=== PATIENT | male | born 1940 | race Caucasian/White ===

== ENCOUNTER → 2020-09-29 10:21 | Outpatient (BNVA) | payer BC, SELFPAY | PROVIDERS: PCP Nurse Practitioner Family; Visit Provider Urology | DX: Z13.89 Encounter for screening for other disorder (principal) ==

== ENCOUNTER → 2021-04-14 09:05 | Outpatient (BNV) | payer MEDICARE, SELFPAY | PROVIDERS: PCP Nurse Practitioner Family; Visit Provider Internal Medicine Medical Oncology | DX: D47.2 Monoclonal gammopathy (principal) | CPT/HCPCS: 99213; 99214 ==

== ENCOUNTER → 2021-05-19 11:05 | Outpatient (BNVA) | payer MEDICARE, SELFPAY | PROVIDERS: PCP Nurse Practitioner Family; Visit Provider Urology | DX: N32.1 Vesicointestinal fistula (principal); N32.0 Bladder-neck obstruction; R33.9 Retention of urine, unspecified; N40.1 Benign prostatic hyperplasia with lower urinary tract symptoms; N13.8 Other obstructive and reflux uropathy; R35.1 Nocturia; E11.65 Type 2 diabetes mellitus with hyperglycemia | CPT/HCPCS: 51798; 99212 ==

== ENCOUNTER 2021-11-15 10:26 | Outpatient (REF) | payer MEDICARE, SELFPAY | END 2021-11-15 10:27 | disposition home or self-care (01) | LOC: HO.LNP 10:26 | PROVIDERS: PCP Nurse Practitioner Family; Visit Provider Urology | DX: N31.2 Flaccid neuropathic bladder, not elsewhere classified (principal); N32.0 Bladder-neck obstruction; N39.0 Urinary tract infection, site not specified | CPT/HCPCS: 51798; 87086; 99212 ==

== ENCOUNTER → 2022-05-18 09:49 | Outpatient (BNVA) | payer MEDICARE, SELFPAY | PROVIDERS: PCP Nurse Practitioner Family; Visit Provider Urology | DX: N39.0 Urinary tract infection, site not specified (principal); N32.0 Bladder-neck obstruction; N31.2 Flaccid neuropathic bladder, not elsewhere classified; Z79.899 Other long term (current) drug therapy | CPT/HCPCS: 51798; 99212 ==

== ENCOUNTER 2022-07-13 07:24 | Outpatient (REF) | payer MEDICARE, SELFPAY ==
[2022-07-13 11:34] LABS: Appearance Urine Clear; Color Urine Yellow; Glucose Urine UA Negative (Negative); Leukocyte Esterase Urine Moderate (2+) (Negative); Nitrite Urine Negative (Negative); Specific Gravity - Urine 1.015 (1.005-1.025); UMIC TRIGGER UACC YES; Urine Blood Negative (Negative); Urine Ketones Negative (Negative); Urine Protein Negative (Neg-Trace)
[2022-07-13 11:38] LABS: Bacteria Urine None Seen (None Seen); Hyaline Casts Urine 0-2 /LPF (0-2); RBC Urine 0-2 /HPF (0-2); Squamous Epithelial Cell Urine 0-2 /HPF (0-2); UACC Culture Trigger YES; WBC Urine 21-50 /HPF (0-5)
[2022-07-13 11:41] LABS: Basophils Percent Auto 0.2 % (0-2); Eosinophils Absolute Auto 0.2 X10*3/uL (0.0-0.4); Eosinophils Percent Auto 2.1 % (0-4); Hematocrit 41.5 % (42.0-52.0); Hemoglobin 13.6 g/dl (14.0-18.0); Imm Gran Abs Auto 0.02 X10*3/uL (0.00-0.03); Imm Gran Pct Auto 0.2 % (0.0-0.4); Lymphocytes Percent Auto 71.1 % (20-40); MANUAL DIFF FLAG SCAN; Mean Corpuscular HGB Conc 32.8 g/dl (31.0-36.0); Mean Corpuscular Hemoglobin 33.3 pg (27.0-33.0); Mean Corpuscular Volume 101.5 fL (80.0-98.0); Mean Platelet Volume 12.2 fL (9.4-12.4); Monocytes Absolute Auto 0.5 X10*3/uL (0.1-1.2); Monocytes Percent Auto 5.3 % (2-11); Neutrophils Absolute Auto 1.8 x10*3/uL (2.0-8.3); Neutrophils Percent Auto 21.1 % (45-73); Red Blood Count 4.09 X10*6/uL (4.60-5.80); Red Cell Distribution Width 13.2 % (11.0-16.0); SCAN SMEAR FLAG 1; White Blood Count 8.5 X10*3/uL (4.8-10.8)
[2022-07-13 11:42] LABS: Platelet Count 56 X10*3/uL (160-400)
[2022-07-13 11:45] LABS: Estimated Average Glucose 117 mg/dL; Hemoglobin A1c % 5.7 %
[2022-07-13 12:10] LABS: Alanine Aminotransferase 21 U/L (0-40); Albumin Level 4.3 g/dL (3.5-5.0); Alkaline Phosphatase 88 U/L (39-117); Anion Gap 15 (12-20); Aspartate Amino Transferase 19 U/L (5-37); Bilirubin Total 0.6 mg/dL (0.0-1.0); Blood Urea Nitrogen 22 mg/dL (9-16); Calcium 8.8 mg/dL (8.4-10.2); Carbon Dioxide 27 mmol/L (22-29); Chloride 101 mmol/L (96-108); Cholesterol 136 mg/dL; Estimated Glomerular Filt Rate > 60; Glucose Fasting 100 mg/dL (60-99); HDL Cholesterol 48 mg/dL; LDL Cholesterol Calculated 70 mg/dl; Potassium 4.2 mmol/L (3.3-5.1); Sodium 139 mmol/L (135-145); Total Protein 6.5 g/dL (6.5-8.0); Triglycerides 92 mg/dL
[2022-07-13 12:16] LABS: Prostate Specific Antigen Scr 0.64 ng/mL (<0.05-4.0)
[2022-07-13 12:19] LABS: Microalbum/Creatinine Ratio Ur 28.3 ug/mg cr
[2022-07-13 12:26] LABS: SLIDE REVIEW VERIFIED
== END 2022-07-13 07:25 | disposition home or self-care (01) ==
LOC: HO.HMGCLDS 07:24
PROVIDERS: PCP Nurse Practitioner Family; Visit Provider Nurse Practitioner Family
DX: Z12.5 Encounter for screening for malignant neoplasm of prostate (principal); E11.9 Type 2 diabetes mellitus without complications
CPT/HCPCS: 36415; 80053; 80061; 81001; 82043; 83036; 84153; 84443; 85025; 87086

== ENCOUNTER 2022-07-18 08:32 | Outpatient (REF) | payer MEDICARE, SELFPAY ==
[2022-07-18 11:31] LABS: Appearance Urine Clear; Color Urine Yellow; Glucose Urine UA 100 mg/dL (Negative); Leukocyte Esterase Urine Moderate (2+) (Negative); Nitrite Urine Negative (Negative); Specific Gravity - Urine 1.015 (1.005-1.025); UMIC TRIGGER UACC YES; Urine Blood Negative (Negative); Urine Ketones Negative (Negative); Urine Protein Negative (Neg-Trace)
[2022-07-18 11:40] LABS: Bacteria Urine None Seen (None Seen); Hyaline Casts Urine 0-2 /LPF (0-2); RBC Urine 0-2 /HPF (0-2); Squamous Epithelial Cell Urine 0-2 /HPF (0-2); UACC Culture Trigger YES
== END 2022-07-18 08:33 | disposition home or self-care (01) ==
LOC: HO.HMGCLDS 08:32
PROVIDERS: Absent Provider Internal Medicine; PCP Nurse Practitioner Family; Visit Provider Nurse Practitioner Family
DX: R82.81 Pyuria (principal)
CPT/HCPCS: 81001; 87086

== ENCOUNTER → 2022-11-13 11:46 | Outpatient (BNVA) | payer MEDICARE, SELFPAY | PROVIDERS: PCP Nurse Practitioner Family; Visit Provider Urology | DX: N39.0 Urinary tract infection, site not specified (principal); N31.2 Flaccid neuropathic bladder, not elsewhere classified; B49 Unspecified mycosis | CPT/HCPCS: 51798; 99212 ==

== ENCOUNTER 2023-02-11 06:27 | Outpatient (REF) | payer MEDICARE, SELFPAY ==
[2023-02-11 11:43] LABS: Appearance Urine Clear; Color Urine Yellow; Glucose Urine UA Negative (Negative); Leukocyte Esterase Urine Small (1+) (Negative); Nitrite Urine Positive (Negative); PH 6.5 (5.0-9.0); UMIC TRIGGER UACC YES; Urine Blood Negative (Negative); Urine Ketones Negative (Negative); Urine Protein Negative (Neg-Trace)
[2023-02-11 11:46] LABS: Basophils Percent Auto 0.2 % (0-2); Eosinophils Absolute Auto 0.1 X10*3/uL (0.0-0.4); Eosinophils Percent Auto 1.5 % (0-4); Hematocrit 41.1 % (42.0-52.0); Hemoglobin 13.4 g/dl (14.0-18.0); Imm Gran Abs Auto 0.01 X10*3/uL (0.00-0.03); Imm Gran Pct Auto 0.1 % (0.0-0.4); Lymphocytes Percent Auto 72.1 % (20-40); MANUAL DIFF FLAG SCAN; Mean Corpuscular HGB Conc 32.6 g/dl (31.0-36.0); Mean Corpuscular Volume 101.2 fL (80.0-98.0); Mean Platelet Volume 12.3 fL (9.4-12.4); Monocytes Absolute Auto 0.4 X10*3/uL (0.1-1.2); Monocytes Percent Auto 4.6 % (2-11); Neutrophils Absolute Auto 1.9 x10*3/uL (2.0-8.3); Neutrophils Percent Auto 21.5 % (45-73); Red Blood Count 4.06 X10*6/uL (4.60-5.80); Red Cell Distribution Width 13.2 % (11.0-16.0); SCAN SMEAR FLAG 1; White Blood Count 8.9 X10*3/uL (4.8-10.8)
[2023-02-11 11:50] LABS: Bacteria Urine Trace (None Seen); Hyaline Casts Urine 0-2 /LPF (0-2); RBC Urine 0-2 /HPF (0-2); Squamous Epithelial Cell Urine 0-2 /HPF (0-2); UACC Culture Trigger YES
[2023-02-11 11:51] LABS: Lymphocytes Absolute Auto 6.5 X10*3/uL (1.2-4.9)
[2023-02-11 11:57] LABS: Estimated Average Glucose 120 mg/dL; Hemoglobin A1c % 5.8 %
[2023-02-11 12:05] LABS: Alanine Aminotransferase 19 U/L (0-40); Albumin Level 4.2 g/dL (3.5-5.0); Alkaline Phosphatase 85 U/L (39-117); Anion Gap 10 (12-20); Aspartate Amino Transferase 15 U/L (5-37); Bilirubin Total 0.8 mg/dL (0.0-1.0); Blood Urea Nitrogen 23 mg/dL (9-16); Calcium 9.3 mg/dL (8.4-10.2); Carbon Dioxide 32 mmol/L (22-29); Chloride 103 mmol/L (96-108); Cholesterol 138 mg/dL; Estimated Glomerular Filt Rate > 60; Glucose Fasting 123 mg/dL (60-99); HDL Cholesterol 47 mg/dL; LDL Cholesterol Calculated 70 mg/dl; Potassium 4.3 mmol/L (3.3-5.1); Sodium 141 mmol/L (135-145); Total Protein 6.2 g/dL (6.5-8.0); Triglycerides 105 mg/dL
[2023-02-11 12:11] LABS: Platelet Count 50 X10*3/uL (160-400)
[2023-02-11 12:13] LABS: SLIDE REVIEW VERIFIED
[2023-02-11 12:24] LABS: TSH reflex Free T4 1.78 uIU/mL (0.32-4.0)
== END 2023-02-11 06:28 | disposition home or self-care (01) ==
LOC: HO.HMGCLDS 06:27
PROVIDERS: PCP Nurse Practitioner Family; Visit Provider Nurse Practitioner Family
DX: E11.9 Type 2 diabetes mellitus without complications (principal); R82.90 Unspecified abnormal findings in urine
CPT/HCPCS: 36415; 80053; 80061; 81001; 83036; 84443; 85025; 87086; 87186

== ENCOUNTER 2023-05-14 09:58 | Outpatient (AMB) | payer MEDICARE, SELFPAY ==
--- NOTE | 2023-05-14 10:08 | MHC.OFFVIS ---
Intake Intake Visit Reasons: 6M PVR Intake Note: Patient is present for Follow Up PVR Urology Med: Bethanechol, Tamsulosin Antibiotic Allergy:None Blood Thinner: None Pharmacy: [facility] PVR: 47 Allergies No Known Allergies [No Known Allergies*] Allergy (Verified 05/14/23 10:12) HPI HPI Comments History of Present Illness Details Reji is a very pleasant male. He is a patient of Dr. Spain. He is seen for the following urologic conditions. - urinary retention - lower urinary tract symptoms Accompanied by his brother PVR 45 UA negative Prior prescription for ketoconazole Has urinary urgency with classic OAB Will try coming off bethanechol Would use Myrbetriq if not successful Lower urinary tract symptoms Prior bladder neck contracture with incision Current medications tamsulosin and bethanechol PVR - 10/13 0, 05/13 0cc, 11/14 0cc, 11/14 0cc 2 month follow-up tele visit [facility] Medical History Bladder neck contracture BPH (benign prostatic hyperplasia) Diabetes mellitus Hyperglycemia Hypotonic bladder Nocturia Osteoporosis Right inguinal hernia Urgency of urination Surgical History H/O urethrotomy Family History Father CVD (cardiovascular disease) Mother No problems noted. Other HTN (hypertension) Social History Household Members: Family Housing: House Are you a primary children's zoo caretaker to a significant other at home: No Do you presently have visiting nurse or other home services: No Patient Tobacco Use Status: Never used Tobacco e-Cigarette/Vaping Use: Never Used Second Hand Smoke Exposure: No service: No Current occupational status: retired Cognitive needs: No Hearing needs: No Vision needs: No Review of Systems Const Denies chills and Denies fever(s) Card Reports no additional complaints and Denies syncope Resp Denies cough GI Denies abdominal pain and Denies heartburn Reports as per HPI and Denies change in libido Neuro Denies syncope Psych Denies change in libido Endo Denies change in libido Physical Exam Const General: cooperative, healthy appearing, comfortable and no acute distress Orientation/consciousness: patient oriented x3 HEENT Face and sinus: Yes normal facial exam Mouth: moist mucous membranes Neck Neck: Yes normal visual inspection, Yes full ROM and Yes trachea midline Chest Chest palpation & inspection: normal inspection of the chest Resp Effort & Inspection: normal respiratory effort, able to speak in complete sentences and no respiratory distress GI Inspection: Yes normal to inspection Back/Spine/Pelvis Cervical Spine: normal cervical lordosis Thoracic/Lumbar Spine: thoracic and lumbar spine normal to inspection Skin General skin exam: no rashes or lesions noted Neuro General: patient oriented x3, gait normal, tone normal and moves all extremities Extrem General: Yes normal to inspection and Yes capillary refill normal Office Procedures Post Void Residual Post Residual Void Post Void Residual (PVR): 47 23537-Mfoi Void Residual by ultrasound Assessment & Plan Assessment & Plan (1) Hypotonic bladder: Code(s): 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 No major barriers to patient understanding were identified. An opportunity to ask questions regarding the treatment plan was provided. All questions were answered. The patient expressed understanding and agreement with the above treatment plan. The patient is aware they should contact our office by phone for worsening of their current condition or the appearance of new urologic symptoms. Compliance is encouraged with any medications and followup testing that is ordered. It is a privilege to participate in the urologic care of your patient. If you have any questions or concerns regarding treatment for the above conditions, or other urologic issues, please do not hesitate to contact me. The office telephone contact is [phone]. This note is constructed using voice recognition software. While every effort has been made to ensure accuracy clinical informatics spec errors may have been included. Yours sincerely, Dr Jovi Bell MD, D[facility] - Urology Providers of Expert, Compassionate Care for the Genitourinary System Coding Level of Care Code Est Pt Level 4 (76355) Diagnoses Hypotonic bladder N31.2 Bladder neck contracture N32.0 CPT Codes Post Residual Void - PVR CPT Code: 45900-Vvmr Void Residual by ultrasound ([id number])
== END 2023-05-14 10:27 | disposition home or self-care (01) ==
LOC: HO.HUSH 09:58
PROVIDERS: PCP Nurse Practitioner Family; Visit Provider Urology
DX: N31.2 Flaccid neuropathic bladder, not elsewhere classified (principal); N32.0 Bladder-neck obstruction
CPT/HCPCS: 99213

== ENCOUNTER → 2023-05-14 09:58 | Outpatient (BNVA) | payer MEDICARE, SELFPAY | PROVIDERS: PCP Nurse Practitioner Family; Visit Provider Urology | DX: N31.2 Flaccid neuropathic bladder, not elsewhere classified (principal); N32.0 Bladder-neck obstruction | CPT/HCPCS: 51798 ==

== ENCOUNTER 2023-07-15 11:02 | Outpatient (AMB) | payer MEDICARE, SELFPAY ==
--- NOTE | 2023-07-15 11:05 | A.OFFPC_ITS ---
Vital Signs 07/15/23 11:09 Height 5 ft 9 in Weight 168 lb BMI 24.8 BP 98/60 Blood Pressure Location Rt brachial Position Sitting Pulse 73 Pulse Source Pulse Oximeter Pulse Oximetry (%) 94 Oxygen Delivery Method Room Air Intake Visit Reasons: PE Allergies No Known Allergies [No Known Allergies*] Allergy (Verified 07/15/23 11:12) Tobacco use date assessed: 01/08/23 Fall risk assessment: No Falls in past year Last assessed Fall Risk: 07/15/23 HPI PE HPI Details Pt is here for a PE. Will order labs. Due for PSA, will order. Denies dribbling with urination, weak stream, and frequent nocturia. Pt follows up with urology and hematology/oncology. Hx of osteoporosis, will check vitamin D. Pt sees a urologist, manager clinical services, and neurologist. Pt is visited often by sister and brother. Brother in room during exam. Pt's A1C today is 6.0. [facility] Medical History (Updated 07/15/23 @ 11:27 by MARVIN SpencerRUBIA) Hypotonic bladder Osteoporosis Hyperglycemia Nocturia BPH (benign prostatic hyperplasia) Urgency of urination Diabetes mellitus Right inguinal hernia Bladder neck contracture Surgical History H/O urethrotomy Family History Father CVD (cardiovascular disease) Mother No problems noted. Other HTN (hypertension) Social History Household Members: Family Housing: House Are you a primary chiropractic care to a significant other at home: No Do you presently have visiting nurse or other home services: No Patient Tobacco Use Status: Never used Tobacco e-Cigarette/Vaping Use: Never Used Second Hand Smoke Exposure: No service: No Current occupational status: retired Cognitive needs: No Hearing needs: No Vision needs: No Questionnaire PHQ-9 Over the last 2 weeks, how often have you been bothered by any of the following problems? 1. Little interest or pleasure in doing things: not at all 2. Feeling down, depressed, or hopeless: not at all 3. Trouble falling or staying asleep, or sleeping too much: not at all 4. Feeling tired or having little energy: not at all 5. Poor appetite or overeating: not at all 6. Feeling bad about yourself - or that you are a failure or have let yourself or your family down: not at all 7. Trouble concentrating on things, such as reading the newspaper or watching television: not at all 8. Moving or speaking so slowly that other people could have noticed. Or the opposite - being so fidgety or restless that you have been moving around a lot more than usual: not at all 9. Thoughts that you would be better off or of hurting yourself in some way: not at all Total score: 0 Depression Screening Interpretation: Negative Depression Screening Done: Yes 28652 - PHQ-9 Billing: Yes Source: Developed by Drs. Ramin Jameson, Ailyn Miller, Samir Ramachandran and colleagues, with an educational lynne from [employer]. Thrive Questionnaire Date Thrive assessed: 07/15/23 I am a: Patient What is your living situation today?: I have a steady place to live Within the past 12 months, did the food you bought not last and you didn't have the money to get more?: Never true Within the past 12 months, did you worry whether your food would run out before you got money to buy more?: Never true Do you have trouble paying for medicines?: No Do you have trouble getting transportation to medical appointments?: No Do you have trouble paying your heating and electricity bill?: No Do you have trouble taking care of your child, family member or friend?: No Do you have trouble with day-to-day activities such as bathing, preparing meals, shopping, managing finances, etc.?: No Are you currently unemployed and looking for a job?: No Are you interested in more education?: No LUCILA-7 AMB Questionnaire LUCILA-7 Date LUCILA - 7 assessed: 07/15/23 Feeling nervous, anxious, or on edge: 0 = Not at all Not being able to stop or control worryin = Not at all Worrying too much about different things: 0 = Not at all Trouble relaxin = Not at all Being so restless that it is hard to sit still: 0 = Not at all Becoming easily annoyed or irritable: 0 = Not at all Feeling afraid as if something awful might happen: 0 = Not at all Total LUCILA-7 score (0-4 normal; 5-9 mild; 10-14 moderate; 15-21 severe): 0 Source: Developed by Drs. Ramin Jameson, Ailyn Miller, Samir Ramachandran and colleagues, with an educational lynne from [employer]. LUCILA-7 Assessment Billing LUCILA-7 Assessment Tool: LUCILA-7 Assessment 33867 Review of Systems Const Denies chills and Denies fever(s) Eyes Denies blurry vision ENT Denies vertigo, Denies dizziness and Denies sore throat Card Denies chest pain at rest, Denies chest pain with activity, Denies diaphoresis, Denies dyspnea and Denies dyspnea on exertion Resp Denies cough, Denies dyspnea, Denies dyspnea on exertion and Denies wheezing GI Denies abdominal pain, Denies melena, Denies hematochezia, Denies constipation, Denies diarrhea and Denies loose stools Denies hematuria Musc Denies numbness and Denies tingling Skin/Breast Denies lesions Neuro Denies vertigo, Denies dizziness, Denies numbness and Denies tingling Psych Denies anxiety, Denies depression, Denies homicidal ideation, Denies suicidal ideation and Denies other (substance abuse) Aller/Immun Denies wheezing Physical exam (Primary Care) Vital Signs: Last Vital Signs Pulse 73 07/15/23 11:09 BP 98/60 07/15/23 11:09 Pulse Ox 94 07/15/23 11:09 Oxygen Delivery Method Room Air 07/15/23 11:09 BMI result Body Mass Index 24.8 Tobacco/Smoking Status: Tobacco use Status Tobacco use date assessed 01/08/23 07/15/23 11:06 Patient Tobacco Use Status Never used Tobacco 07/15/23 11:06 e-Cigarette/Vaping Use Never Used 07/15/23 11:06 PHQ-9: PHQ-9 Score PHQ-9: Total score 0 07/15/23 11:31 Depression Screening Interpretation: Negative Thrive Assessment: Date of Thrive Assessment Date Thrive assessed 07/15/23 07/15/23 11:22 Const General: cooperative Nutritional Appearance: well nourished Orientation/consciousness: patient oriented x3 HENMT Head: Yes normal to inspection, Yes normocephalic and Yes atraumatic Ears: TM's normal bilaterally Eyes General: appearance normal, both eyes and all related structures Alignment and Position: alignment normal and position normal Neck Neck: Yes normal visual inspection and Yes no lymphadenopathy Thyroid: Thyroid normal Resp Effort & Inspection: normal respiratory effort Auscultation: clear to auscultation bilaterally Cardio Rate: regular rate Rhythm: regular rhythm Heart sounds: S1 normal heart sound present, S2 normal heart sound present and no murmurs GI Palpation (GI): Soft to palpation and nontender Auscultation: normal bowel sounds Male General Exam: Yes normal external exam Penis: normal penis Scrotum: scrotum normal, testes descended bilaterally and inguinal hernia (large) on the right Testes: no testicular mass Back/Spine/Pelvis Other: kyphosis noted Skin Rashes: no rashes Neuro General: patient oriented x3, moves all extremities, no focal motor deficits and deep tendon reflexes 2+ bilaterally Romberg Test: Negative Extrem Right lower extremity: edema (trace) Psych Appearance: grossly normal Mental Status: mental status grossly normal Speech and movement: Normal speech and movement present Affect: normal affect Attitude: cooperative Thought process: Normal thought process present Thought content: Normal thought content present Insight: Good insight present (Psych) Judgement: Good judgement present (Psych) Results AMB Hemoglobin A1c AMB Hemoglobin A1c 6.0 % Last Edit by VIRIDIANA Emerson on 07/15/23 11 :33 Assessment and Plan Assessment & Plan (1) Physical exam: Code(s): Z00.00 - Encounter for general adult medical examination without abnormal findings Plan: Labs ordered (2) Screening for prostate cancer: Code(s): Z12.5 - Encounter for screening for malignant neoplasm of prostate Plan: PSA ordered (3) Osteoporosis: Code(s): M81.0 - Age-related osteoporosis without current pathological fracture Plan: Vitamin D ordered Plan The patient agreed to the use of a medical laboratory technical officer for this encounter. Scribed for EDUARDO Bahena by Sally Almonte medical laboratory technical officer, on 07/15/2023 at 11:25 EST Orders: Orders Complete Blood Count Auto Diff Today Z00.00 - Encounter for general adult medical examination without abnormal findings Comprehensive [place]. Panel Fast Today Z00.00 - Encounter for general adult medical examination without abnormal findings Lipid Panel Today Z00.00 - Encounter for general adult medical examination without abnormal findings TSH reflex Free T4 Today Z00.00 - Encounter for general adult medical examination without abnormal findings UA CC w/rflx Micro + Cult Today Z00.00 - Encounter for general adult medical examination without abnormal findings Prostate Specific Antigen Scr Today Z12.5 - Encounter for screening for malignant neoplasm of prostate Vitamin D 25-OH Total Today M81.0 - Age-related osteoporosis without current pathological fracture AMB Hemoglobin A1c Today Z13.9 - Encounter for screening, unspecified Coding Level of Care Code Est Pt Prev Care >65y(32535) Diagnoses Physical exam Z00.00 Screening for prostate cancer Z12.5 Osteoporosis M81.0 Additional Codes LUCILA-7 Assessment Billing - LUCILA-7 Assessment Tool: LUCILA-7 Assessment 50388 ([id number])
[2023-07-15 11:09] VITALS: BP 98/60; PULSE 73; O2SAT 94; BMI 24.8
== END 2023-07-15 11:49 | disposition home or self-care (01) ==
PROVIDERS: Visit Provider Nurse Practitioner Family
DX: Z00.00 Encounter for general adult medical examination without abnormal findings (principal); M81.0 Age-related osteoporosis without current pathological fracture; E11.9 Type 2 diabetes mellitus without complications
CPT/HCPCS: 83036; 99397

== ENCOUNTER 2023-08-06 09:23 | Outpatient (AMB) | payer MEDICARE, SELFPAY ==
--- NOTE | 2023-08-06 10:42 | A.OFFVIS_ITS ---
Intake Intake Visit Reasons: 2m follow up Allergies No Known Allergies [No Known Allergies*] Allergy (Verified 07/15/23 11:12) HPI HPI Comments History of Present Illness Details Reji is a very pleasant male. He is a patient of Dr. Spain. He is seen for the following urologic conditions. - urinary retention - lower urinary trac t symptoms Telemedicine Evaluation 15 min Consultation Doximity Federica Video attempted Minimal difference off bethanechol Leave on the tamsulosin Has urinary urgency with classic OAB Lower urinary tract symptoms Prior bladder neck contracture with incision Current medications tamsulosin Prior medications include bethanechol PVR - 10/13 0, 05/13 0cc, 11/14 0cc, 11/14 0cc 6 month f/u office [facility] Medical History (Updated 07/15/23 @ 11:27 by Modesto Hwang [facility]) Hypotonic bladder Osteoporosis Hyperglycemia Nocturia BPH (benign prostatic hyperplasia) Urgency of urination Diabetes mellitus Right inguinal hernia Bladder neck contracture Surgical History (Reviewed 07/15/23 @ 11:43 by Modesto Hwang [facility] H/O urethrotomy Family History Father CVD (cardiovascular disease) Mother No problems noted. Other HTN (hypertension) Social History Household Members: Family Housing: House Are you a primary healthcare management consultant to a significant other at home: No Do you presently have visiting nurse or other home services: No Patient Tobacco Use Status: Never used Tobacco e-Cigarette/Vaping Use: Never Used Second Hand Smoke Exposure: No service: No Current occupational status: retired Cognitive needs: No Hearing needs: No Vision needs: No Review of Systems Const All systems reviewed & are unremarkable except as noted in HPI and below Reports no additional complaints Resp Reports no additional complaints GI Reports no additional complaints Reports as per HPI Musc Reports no additional complaints Physical Exam Telemedicine evaluation Appropriate responses Regular breathing rate and rhythm HEENT Head: Yes normal to inspection Ears: hearing grossly normal bilaterally Eyes General: appearance normal, both eyes and all related structures Neck Neck: Yes normal visual inspection Chest Chest palpation & inspection: normal inspection of the chest Resp Effort & Inspection: normal respiratory effort and able to speak in complete sentences Assessment & Plan Assessment & Plan (1) Hypotonic bladder: Code(s): 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 No major barriers to patient understanding were identified. An opportunity to ask questions regarding the treatment plan was provided. All questions were answered. The patient expressed understanding and agreement with the above treatment plan. The patient is aware they should contact our office by phone for worsening of their current condition or the appearance of new urologic symptoms. Compliance is encouraged with any medications and followup testing that is ordered. It is a privilege to participate in the urologic care of your patient. If you have any questions or concerns regarding treatment for the above conditions, or other urologic issues, please do not hesitate to contact me. The office telephone contact is [phone]. This note is constructed using voice recognition software. While every effort has been made to ensure accuracy rough rice grader errors may have been included. Yours sincerely, Dr Jovi Bell MD, D[facility] - Urology Providers of Expert, Compassionate Care for the Genitourinary System Telehealth Telehealth Location of provider rendering services: practice address Location of patient: address on file Patient Identification confirmed using: Name, : Yes Telehealth method: video Patient verbally consented to treatment: Yes Patient verbally consented to billing insurance company: Yes Patient informed of any privacy concerns related to visit: Yes Coding Level of Care Code Tele Est Pt Level 3 (16820) Diagnoses Hypotonic bladder N31.2
== END 2023-08-06 13:27 | disposition home or self-care (01) ==
PROVIDERS: PCP Nurse Practitioner Family; Visit Provider Urology
DX: N31.2 Flaccid neuropathic bladder, not elsewhere classified (principal)
CPT/HCPCS: 99213

== ENCOUNTER → 2023-08-06 09:23 | Outpatient (BNVA) | payer MEDICARE, SELFPAY | PROVIDERS: PCP Nurse Practitioner Family; Visit Provider Urology ==

== ENCOUNTER 2023-08-09 07:09 | Outpatient (REF) | payer MEDICARE, SELFPAY ==
[2023-08-09 11:34] LABS: Appearance Urine Turbid; Color Urine Yellow; Glucose Urine UA Negative (Negative); Leukocyte Esterase Urine Large (3+) (Negative); Nitrite Urine Negative (Negative); Specific Gravity - Urine 1.015 (1.005-1.025); UMIC TRIGGER UACC YES; Urine Blood Trace (Negative); Urine Ketones Negative (Negative); Urine Protein Negative (Neg-Trace)
[2023-08-09 11:44] LABS: Bacteria Urine Trace (None Seen); Squamous Epithelial Cell Urine 0-2 /HPF (0-2); UACC Culture Trigger YES; WBC Urine >50 /HPF (0-5)
[2023-08-09 11:45] LABS: Basophils Percent Auto 0.2 % (0-2); Eosinophils Absolute Auto 0.1 X10*3/uL (0.0-0.4); Eosinophils Percent Auto 0.8 % (0-4); Hematocrit 42.5 % (42.0-52.0); Hemoglobin 13.9 g/dl (14.0-18.0); Imm Gran Abs Auto 0.01 X10*3/uL (0.00-0.03); Imm Gran Pct Auto 0.1 % (0.0-0.4); Lymphocytes Absolute Auto 6.4 X10*3/uL (1.2-4.9); Lymphocytes Percent Auto 69.7 % (20-40); MANUAL DIFF FLAG SCAN; Mean Corpuscular HGB Conc 32.7 g/dl (31.0-36.0); Mean Corpuscular Hemoglobin 33.3 pg (27.0-33.0); Mean Corpuscular Volume 101.7 fL (80.0-98.0); Monocytes Absolute Auto 0.5 X10*3/uL (0.1-1.2); Monocytes Percent Auto 5.1 % (2-11); Neutrophils Absolute Auto 2.2 x10*3/uL (2.0-8.3); Neutrophils Percent Auto 24.1 % (45-73); Red Blood Count 4.18 X10*6/uL (4.60-5.80); Red Cell Distribution Width 13.2 % (11.0-16.0); SCAN SMEAR FLAG 1; White Blood Count 9.2 X10*3/uL (4.8-10.8)
[2023-08-09 12:09] LABS: Alanine Aminotransferase 18 U/L (0-40); Albumin Level 4.4 g/dL (3.5-5.0); Alkaline Phosphatase 81 U/L (39-117); Anion Gap 11 (12-20); Aspartate Amino Transferase 18 U/L (5-37); Bilirubin Total 0.6 mg/dL (0.0-1.0); Blood Urea Nitrogen 21 mg/dL (9-16); Calcium 9.5 mg/dL (8.4-10.2); Carbon Dioxide 31 mmol/L (22-29); Chloride 103 mmol/L (96-108); Cholesterol 136 mg/dL (<200); Estimated Glomerular Filt Rate > 60; Glucose Fasting 122 mg/dL (60-99); HDL Cholesterol 45 mg/dL (>40); LDL Cholesterol Calculated 66 mg/dL (<100); Potassium 4.2 mmol/L (3.3-5.1); Sodium 141 mmol/L (135-145); Total Protein 6.9 g/dL (6.5-8.0); Triglycerides 127 mg/dL (<150)
[2023-08-09 12:11] LABS: Mean Platelet Volume 11.8 fL (9.4-12.4); Platelet Count 33 X10*3/uL (160-400); Prostate Specific Antigen Scr 0.59 ng/mL (<0.05-4.0); SLIDE REVIEW VERIFIED
[2023-08-09 12:26] LABS: TSH reflex Free T4 1.87 uIU/mL (0.32-4.0)
== END 2023-08-09 07:10 | disposition home or self-care (01) ==
LOC: HO.HMGCLDS 07:09
PROVIDERS: PCP Nurse Practitioner Family; Visit Provider Nurse Practitioner Family
DX: Z00.00 Encounter for general adult medical examination without abnormal findings (principal); Z12.5 Encounter for screening for malignant neoplasm of prostate; M81.0 Age-related osteoporosis without current pathological fracture; R82.90 Unspecified abnormal findings in urine; E11.9 Type 2 diabetes mellitus without complications
CPT/HCPCS: 36415; 80053; 80061; 81001; 82306; 84153; 84443; 85025; 87086; 87088; 87186

== ENCOUNTER 2024-01-21 10:26 | Outpatient (AMB) | payer MEDICARE, SELFPAY ==
--- NOTE | 2024-01-21 10:28 | A.OFFPC_ITS ---
Vital Signs 01/21/24 10:33 Height 5 ft 9 in Weight 167 lb BMI 24.7 BP 110/70 Blood Pressure Location Rt brachial Position Sitting Pulse 56 Pulse Source Pulse Oximeter Pulse Oximetry (%) 94 Oxygen Delivery Method Room Air Intake Visit Reasons: 6 month fu Intake Note: Patient here for diabetes f/u Allergies No Known Allergies [No Known Allergies*] Allergy (Verified 01/21/24 10:33) Tobacco use date assessed: 01/21/24 Fall risk assessment: No Falls in past year Last assessed Fall Risk: 01/21/24 Dental Screening Dental Screen Date: 01/21/24 Did you have a dental visit in the last 12 months?: Yes Did you have a dental problem in the last 6 months where you did not have access to dental care?: No Was dental information given to patient?: Patient has dentist HPI 6 month fu HPI Details Pt is a diabetic. A1C in office today is 6.1. Due for microalbumin, will order. Denies polyuria, polydipsia, and neuropathy. Pt denies any signs and symptoms of hypoglycemia and does know how to correct it. Pt is not on a statin, though lipids are WNL. Pt's blood pressure is lower, therefore I will not start an GERA/ARB. Eye exam is up to date. Pt c/o pruritic dermatitis to his anterior neck. He reports that this is irritated with touch. Will send clotrimazole- betamethsone. Pt does have elongated toenails. Will refer to podiatry. PENDING SALE TO [facility] Medical History Hypotonic bladder Osteoporosis Hyperglycemia Nocturia BPH (benign prostatic hyperplasia) Urgency of urination Diabetes mellitus Right inguinal hernia Bladder neck contracture Surgical History H/O urethrotomy Family History Father CVD (cardiovascular disease) Mother No problems noted. Other HTN (hypertension) Social History Household Members: Family Housing: House Are you a primary child care centre director to a significant other at home: No Do you presently have visiting nurse or other home services: No Patient Tobacco Use Status: Never used Tobacco e-Cigarette/Vaping Use: Never Used Second Hand Smoke Exposure: No service: No Current occupational status: retired Cognitive needs: No Hearing needs: No Vision needs: No Questionnaire Thrive Questionnaire Date Thrive assessed: 07/15/23 AUDIT C Alcohol Use Questionnaire (AUDIT-C) 1. How often do you have a drink containing alcohol?: Never 3. How often do you have six or more drinks on one occasion?: Never Total Score: 0 Score Reviewed/Action Taken: No LUCILA-7 AMB Questionnaire LUCILA-7 Date LUCILA - 7 assessed: 07/15/23 Source: Developed by Drs. Ramin Jameson, Ailyn Miller, Samir Ramachandran and colleagues, with an educational lynne from [employer]. Review of Systems Const Reports as per HPI Physical exam (Primary Care) Vital Signs: Last Vital Signs Pulse 56 01/21/24 10:33 BP 110/70 01/21/24 10:33 Pulse Ox 94 01/21/24 10:33 Oxygen Delivery Method Room Air 01/21/24 10:33 BMI result Body Mass Index 24.7 Tobacco/Smoking Status: Tobacco use Status Tobacco use date assessed 01/21/24 01/21/24 10:37 Patient Tobacco Use Status Never used Tobacco 01/21/24 10:29 e-Cigarette/Vaping Use Never Used 01/21/24 10:29 Thrive Assessment: Date of Thrive Assessment Date Thrive assessed 07/15/23 01/21/24 10:29 Const General: cooperative Orientation/consciousness: patient oriented x3 Resp Effort & Inspection: normal respiratory effort Auscultation: clear to auscultation bilaterally Cardio Rate: regular rate Rhythm: regular rhythm Heart sounds: S1 normal heart sound present and S2 normal heart sound present Back/Spine/Pelvis Other: kyphosis Skin Other: anterior neck with macular erythema, irritated with touch Neuro General: patient oriented x3 Extrem Other: bilat feet: + sensation with use of monofilament, feet intact, elongated toenails, left big toenail partially ingrown on medial side, no erythema or drainage, tenderness noted with palpation Psych Appearance: grossly normal Mental Status: mental status grossly normal Speech and movement: Normal speech and movement present Affect: normal affect Attitude: cooperative Thought process: Normal thought process present Thought content: Normal thought content present Insight: Good insight present (Psych) Judgement: Good judgement present (Psych) Results AMB Hemoglobin A1c AMB Hemoglobin A1c 6.1 % Last Edit by VIRIDIANA Emerson on 01/21/24 10 :57 Assessment and Plan Assessment & Plan (1) Diabetes mellitus: Code(s): E11.9 - Type 2 diabetes mellitus without complications Plan: Labs ordered (2) Overgrown toenails: Code(s): L60.2 - Onychogryphosis Plan: referred to podiatry (3) Dermatitis: Code(s): L30.9 - Dermatitis, unspecified Plan: cream sent Plan The patient agreed to the use of a medical hospital sales for this encounter. Scribed for EDUARDO Bahena by [facility], on 01/21/2024 at 10:40 EST. Orders: Orders Complete Blood Count Auto Diff Today E11.9 - Type 2 diabetes mellitus without complications UA CC w/rflx Micro + Cult Today E11.9 - Type 2 diabetes mellitus without complications Lipid Panel Today E11.9 - Type 2 diabetes mellitus without complications AMB Hemoglobin A1c Today Z13.9 - Encounter for screening, unspecified Comprehensive Mena. Panel Fast Today E11.9 - Type 2 diabetes mellitus without complications TSH reflex Free T4 Today E11.9 - Type 2 diabetes mellitus without complications Hemoglobin A1c Today E11.9 - Type 2 diabetes mellitus without complications Microalbumin, Random (w Creat) Today E11.9 - Type 2 diabetes mellitus without complications Referrals Podiatry Referral E11.9 - Type 2 diabetes mellitus without complications, L60.2 - Onychogryphosis Medications: Refilled clotrimazole-betamethasone 1-0.05 % 1 appl topical DAILY 30 days PRN 15 grams 1RF dermatitis B49 - Unspecified mycosis Coding Level of Care Code Est Pt Level 3 (60769) Diagnoses Diabetes mellitus E11.9 Overgrown toenails L60.2 Dermatitis L30.9
[2024-01-21 10:33] VITALS: BP 110/70; PULSE 56; O2SAT 94; BMI 24.7
== END 2024-01-21 11:09 | disposition home or self-care (01) ==
PROVIDERS: PCP Nurse Practitioner Family; Visit Provider Nurse Practitioner Family
DX: E11.620 Type 2 diabetes mellitus with diabetic dermatitis (principal); L60.2 Onychogryphosis; L30.9 Dermatitis, unspecified; Z23 Encounter for immunization
CPT/HCPCS: 83036; 90471; 90677; 99213

== ENCOUNTER 2024-01-27 07:18 | Outpatient (REF) | payer MEDICARE, SELFPAY ==
[2024-01-27 10:31] LABS: Appearance Urine Cloudy; Color Urine Yellow; Glucose Urine UA Negative (Negative); Leukocyte Esterase Urine Large (3+) (Negative); Nitrite Urine Negative (Negative); Specific Gravity - Urine 1.015 (1.005-1.025); UMIC TRIGGER UACC YES; Urine Blood Negative (Negative); Urine Ketones Negative (Negative); Urine Protein Trace mg/dL (Neg-Trace)
[2024-01-27 10:35] LABS: Bacteria Urine None Seen (None Seen); Hyaline Casts Urine 0-2 /LPF (0-2); RBC Urine 0-2 /HPF (0-2); Squamous Epithelial Cell Urine 0-2 /HPF (0-2); UACC Culture Trigger YES; WBC Urine >50 /HPF (0-5)
[2024-01-27 10:52] LABS: Estimated Average Glucose 126 mg/dL
[2024-01-27 11:05] LABS: Alanine Aminotransferase 14 U/L (0-40); Albumin Level 4.2 g/dL (3.5-5.0); Alkaline Phosphatase 76 U/L (39-117); Anion Gap 14 (12-20); Aspartate Amino Transferase 16 U/L (5-37); Bilirubin Total 0.6 mg/dL (0.0-1.0); Blood Urea Nitrogen 22 mg/dL (9-16); Calcium 9.8 mg/dL (8.4-10.2); Carbon Dioxide 26 mmol/L (22-29); Chloride 106 mmol/L (96-108); Cholesterol 119 mg/dL (<200); Estimated Glomerular Filt Rate > 60; Glucose Fasting 123 mg/dL (60-99); HDL Cholesterol 42 mg/dL (>40); LDL Cholesterol Calculated 54 mg/dL (<100); Potassium 4.1 mmol/L (3.3-5.1); Sodium 142 mmol/L (135-145); Total Protein 6.6 g/dL (6.5-8.0); Triglycerides 117 mg/dL (<150)
[2024-01-27 11:06] LABS: Basophils Percent Auto 0.3 % (0-2); Eosinophils Absolute Auto 0.1 X10*3/uL (0.0-0.4); Eosinophils Percent Auto 0.9 % (0-4); Hematocrit 40.5 % (42.0-52.0); Hemoglobin 13.7 g/dl (14.0-18.0); Imm Gran Abs Auto 0.03 X10*3/uL (0.00-0.03); Imm Gran Pct Auto 0.3 % (0.0-0.4); Lymphocytes Absolute Auto 6.6 X10*3/uL (1.2-4.9); Lymphocytes Percent Auto 70.8 % (20-40); MANUAL DIFF FLAG SCAN; Mean Corpuscular HGB Conc 33.8 g/dl (31.0-36.0); Mean Corpuscular Hemoglobin 34.1 pg (27.0-33.0); Mean Corpuscular Volume 100.7 fL (80.0-98.0); Monocytes Absolute Auto 0.4 X10*3/uL (0.1-1.2); Monocytes Percent Auto 3.9 % (2-11); Neutrophils Absolute Auto 2.2 x10*3/uL (2.0-8.3); Neutrophils Percent Auto 23.8 % (45-73); Red Blood Count 4.02 X10*6/uL (4.60-5.80); Red Cell Distribution Width 13.2 % (11.0-16.0); SCAN SMEAR FLAG 1; White Blood Count 9.3 X10*3/uL (4.8-10.8)
[2024-01-27 11:26] LABS: TSH reflex Free T4 1.87 uIU/mL (0.32-4.0)
[2024-01-27 11:37] LABS: Creatinine Urine 86.35 mg/dL
[2024-01-27 11:57] LABS: Mean Platelet Volume 12.2 fL (9.4-12.4); Platelet Count 161 X10*3/uL (160-400)
[2024-01-27 12:11] LABS: SLIDE REVIEW VERIFIED
== END 2024-01-27 07:19 | disposition home or self-care (01) ==
LOC: HO.HMGCLDS 07:18
PROVIDERS: PCP Nurse Practitioner Family; Visit Provider Nurse Practitioner Family
DX: E11.9 Type 2 diabetes mellitus without complications (principal); R82.90 Unspecified abnormal findings in urine
CPT/HCPCS: 36415; 80053; 80061; 81001; 82043; 82570; 83036; 84443; 85025; 87086; 87088; 87186

== ENCOUNTER 2024-02-04 10:36 | Outpatient (AMB) | payer MEDICARE, SELFPAY ==
--- NOTE | 2024-02-04 10:42 | MHC.OFFVIS ---
Intake Visit Reasons: 6m/PVR Intake Note: Patient is Present for PVR/ Urology Med: Tamsulosin Antibiotic Allergy:none Blood Thinner:none Todays PVR: 33 Patient had urinalysis done at PCP Dr Hwang office shown to have uti patient is currently on last 2 antibiotics Allergies No Known Allergies [No Known Allergies*] Allergy (Verified 01/21/24 10:33) HPI Comments Details: Reji is a very pleasant male. He is a patient of Dr. Spain. Developmental delay. Lives with brother. He is seen for the following urologic conditions. 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 Other HTN (hypertension) Social History Household Members: Family Housing: House Are you a primary residential care facility manager to a significant other at home: No Do you presently have visiting nurse or other home services: No Patient Tobacco Use Status: Never used Tobacco e-Cigarette/Vaping Use: Never Used Second Hand Smoke Exposure: No service: No Current occupational status: retired Cognitive needs: No Hearing needs: No Vision needs: No Review of Systems Const Denies chills and Denies fever(s) Card Reports no additional complaints and Denies syncope Resp Denies cough GI Denies abdominal pain and Denies heartburn Reports as per HPI and Denies change in libido Neuro Denies syncope Psych Denies change in libido Endo Denies change in libido Physical Exam Const General: cooperative, healthy appearing, comfortable and no acute distress Orientation/consciousness: patient oriented x3 HEENT Face and sinus: Yes normal facial exam Mouth: moist mucous membranes Neck Neck: Yes normal visual inspection, Yes full ROM and Yes trachea midline Chest Chest palpation & inspection: normal inspection of the chest Resp Effort & Inspection: normal respiratory effort, able to speak in complete sentences and no respiratory distress GI Inspection: Yes normal to inspection Back/Spine/Pelvis Cervical Spine: normal cervical lordosis Thoracic/Lumbar Spine: thoracic and lumbar spine normal to inspection Skin General skin exam: no rashes or lesions noted Neuro General: patient oriented x3, gait normal, tone normal and moves all extremities Extrem General: Yes normal to inspection and Yes capillary refill normal Office Procedures Post Void Residual Post Residual Void Post Void Residual (PVR): 33 [id number] Void Residual by ultrasound Assessment & Plan Assessment & Plan (1) Complicated urinary tract infection: Code(s): N39.0 - Urinary tract infection, site not specified Category: Medical (2) Hypotonic bladder: Code(s): 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, not elsewhere classified Category: Medical Plan Treat complicated urinary tract infection Orders: Orders AMB Post Void Residual by ultrasound Today 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, not elsewhere classified Medications: New ascorbic acid (vitamin C) 1 g PO DAILY 90 days 90 tabs 1RF N39.0 - Urinary tract infection, site not specified methenamine hippurate 1 g PO DAILY 90 days 90 tabs 1RF N39.0 - Urinary tract infection, site not specified Patient Instructions: Imaging studies, laboratory and physical exam results were discussed and reviewed in detail. No major barriers to patient understanding were identified. An opportunity to ask questions regarding the treatment plan was provided. All questions were answered. The patient expressed understanding and agreement with the above treatment plan. The patient is aware they should contact our office by phone for worsening of their current condition or the appearance of new urologic symptoms. Compliance is encouraged with any medications and followup testing that is ordered. It is a privilege to participate in the urologic care of your patient. If you have any questions or concerns regarding treatment for the above conditions, or other urologic issues, please do not hesitate to contact me. The office telephone contact is [phone]. This note is constructed using voice recognition software. While every effort has been made to ensure accuracy fuel management handler errors may have been included. Yours sincerely, Dr Jovi Bell MD, DIANA [facility] - Urology Providers of Expert, Compassionate Care for the Genitourinary System Coding Level of Care Code Est Pt Level 4 (33071) Diagnoses Complicated urinary tract infection N39.0 Hypotonic bladder N31.2 CPT Codes Post Residual Void - PVR CPT Code: 54059-Gjzw Void Residual by ultrasound ([id number])
== END 2024-02-04 11:22 | disposition home or self-care (01) ==
PROVIDERS: PCP Nurse Practitioner Family; Visit Provider Urology
DX: N39.0 Urinary tract infection, site not specified (principal); N31.2 Flaccid neuropathic bladder, not elsewhere classified
CPT/HCPCS: 99214

== ENCOUNTER → 2024-02-04 10:36 | Outpatient (BNVA) | payer MEDICARE, SELFPAY | PROVIDERS: PCP Nurse Practitioner Family; Visit Provider Urology | DX: N39.0 Urinary tract infection, site not specified (principal); N31.2 Flaccid neuropathic bladder, not elsewhere classified | CPT/HCPCS: 51798; 99212 ==

== ENCOUNTER 2024-06-09 11:45 | Outpatient (AMB) | payer MEDICARE, SELFPAY ==
--- NOTE | 2024-06-09 11:50 | A.OFFVIS_ITS ---
Intake Visit Reasons: 3M Follow Up-UA/PVR Intake Note: Patient is Present for Follow Up Urinalysis Urology Medication: Vitamin C. Methenamine, Tamsulosin Antibiotic Allergies: None Blood Thinners: None Last pvr 33 Commodity Buyer Required: No Ruffling Hemmer Automatic: Ruffling Hemmer Automatic Present Accompanied by: Family/Other Allergies No Known Allergies [No Known Allergies*] Allergy (Verified 06/09/24 11:55) HPI Comments Details: Reji is a very pleasant male. He is a patient of Dr. Spain. Developmental delay. Lives with brother. He is seen for the following urologic conditions. 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 Other HTN (hypertension) Social History Household Members: Family Housing: House Are you a primary tire care manager to a significant other at home: No Do you presently have visiting nurse or other home services: No Patient Tobacco Use Status: Never used Tobacco e-Cigarette/Vaping Use: Never Used Second Hand Smoke Exposure: No service: No Current occupational status: retired Cognitive needs: No Hearing needs: No Vision needs: No Review of Systems Const Denies chills and Denies fever(s) Card Reports no additional complaints and Denies syncope Resp Denies cough GI Denies abdominal pain and Denies heartburn Reports as per HPI and Denies change in libido Neuro Denies syncope Psych Denies change in libido Endo Denies change in libido Physical Exam Const General: cooperative, healthy appearing, comfortable and no acute distress Orientation/consciousness: patient oriented x3 HEENT Face and sinus: Yes normal facial exam Mouth: moist mucous membranes Neck Neck: Yes normal visual inspection, Yes full ROM and Yes trachea midline Chest Chest palpation & inspection: normal inspection of the chest Resp Effort & Inspection: normal respiratory effort, able to speak in complete sentences and no respiratory distress GI Inspection: Yes normal to inspection Back/Spine/Pelvis Cervical Spine: normal cervical lordosis Thoracic/Lumbar Spine: thoracic and lumbar spine normal to inspection Skin General skin exam: no rashes or lesions noted Neuro General: patient oriented x3, gait normal, tone normal and moves all extremities Extrem General: Yes normal to inspection and Yes capillary refill normal Results AMB Urinalysis, Automated UA Leukoctes 0 Marko/uL Last Edit by Aurelia Grimm [facility] on 06/09/24 12:05 UA Nitrite Negative Last Edit by Aurelia Grimm [facility] on 06/09/24 12:05 UA Urobilinogen 0.2 mg/dL Last Edit by Aurelia Grimm [facility] on 06/09/24 12:0 5 UA Protein 0 mg/dL Last Edit by Aurelia Grimm [facility] on 06/09/24 12:05 UA pH 6.0 Last Edit by Aurelia Grimm [facility] on 06/09/24 12:05 UA Blood 0 Garry/uL Last Edit by Aurelia Grimm [facility] on 06/09/24 12:05 UA Specific [place] 1.005 Last Edit by Aurelia Grimm [facility] on 06/09/24 12: 05 UA Ketone Negative Last Edit by Aurelia Grimm [facility] on 06/09/24 12:05 UA Bilirubin 0 mg/dL Last Edit by Aurelia Grimm [facility] on 06/09/24 12:05 UA Glucose 0 mg/dL Last Edit by Aurelia Grimm [facility] on 06/09/24 12:05 Assessment & Plan Assessment & Plan (1) Complicated urinary tract infection: Code(s): N39.0 - Urinary tract infection, site not specified Category: Medical Plan Six-month follow-up Orders: Orders AMB Urinalysis Automated Today Z13.9 - Encounter for screening, unspecified Medications: New nitrofurantoin macrocrystal must administer with a meal/food - to be used as self start medications for signs of urinary tract infection 100 mg PO BID 10 days 20 caps 0RF N39.0 - Urinary tract infection, site not specified Refilled tamsulosin (Flomax) 0.4 mg PO DAILY 90 days 90 caps 1RF ascorbic acid (vitamin C) 1 g PO DAILY 90 days 90 tabs 1RF N39.0 - Urinary tract infection, site not specified methenamine hippurate 1 g PO DAILY 90 days 90 tabs 1RF N39.0 - Urinary tract infection, site not specified Patient Instructions: Imaging studies, laboratory and physical exam results were discussed and reviewed in detail. No major barriers to patient understanding were identified. An opportunity to ask questions regarding the treatment plan was provided. All questions were answered. The patient expressed understanding and agreement with the above treatment plan. The patient is aware they should contact our office by phone for worsening of their current condition or the appearance of new urologic symptoms. Compliance is encouraged with any medications and followup testing that is ordered. It is a privilege to participate in the urologic care of your patient. If you have any questions or concerns regarding treatment for the above conditions, or other urologic issues, please do not hesitate to contact me. The office telephone contact is [phone]. This note is constructed using voice recognition software. While every effort has been made to ensure accuracy bilingual medical assistant errors may have been included. Yours sincerely, Dr Jovi Bell MD, D[facility] - Urology Providers of Expert, Compassionate Care for the Genitourinary System Coding Level of Care Code Est Pt Level 3 (80058) Diagnoses Complicated urinary tract infection N39.0
== END 2024-06-09 12:07 | disposition home or self-care (01) ==
PROVIDERS: PCP Nurse Practitioner Family; Visit Provider Urology
DX: Z13.9 Encounter for screening, unspecified (principal); N39.0 Urinary tract infection, site not specified
CPT/HCPCS: 99213

== ENCOUNTER → 2024-06-09 11:45 | Outpatient (BNVA) | payer MEDICARE, SELFPAY | PROVIDERS: PCP Nurse Practitioner Family; Visit Provider Urology | DX: N39.0 Urinary tract infection, site not specified (principal) | CPT/HCPCS: 81003; 99212 ==

== ENCOUNTER 2024-07-30 11:28 | Outpatient (AMB) | payer MEDICARE, SELFPAY ==
[2024-07-30 11:35] VITALS: BP 108/70; PULSE 71; O2SAT 100; BMI 23.6
--- NOTE | 2024-07-30 11:35 | MHC.PC.OV ---
Vital Signs 07/30/24 11:35 Height 5 ft 9 in Weight 160 lb BMI 23.6 BP 108/70 Blood Pressure Location Rt brachial Position Sitting Pulse 71 Pulse Source Pulse Oximeter Pulse Oximetry (%) 100 Oxygen Delivery Method Room Air Intake Visit Reasons: Annual PE Intake Note: Pt is here today for PE. Allergies No Known Allergies [No Known Allergies*] Allergy (Verified 07/30/24 11:37) Medication List - Last Reconciled 07/30/24 by Eunice Merida NP ascorbic acid (vitamin C) 1 g PO DAILY 90 days [calcium citrate-vitamin D3 2 tabs PO DAILY] clonazepam 0.5 mg PO TID clotrimazole-betamethasone 1-0.05 % 1 appl topical DAILY PRN 30 days [docusate sodium 100 mg PO DAILY] latanoprost 0.005% 1 drp ophthalmic (eye) BEDTIME methenamine hippurate 1 g PO DAILY 90 days [multivitamin 1 tab PO DAILY] nitrofurantoin macrocrystal 100 mg PO BID 10 days polyethylene glycol 3350 (ClearLax) 17 grams PO DAILY propylene glycol 0.6% (Systane Complete) 1 drp ophthalmic (eye) BID PRN tamsulosin (Flomax) 0.4 mg PO DAILY 90 days timolol maleate 0.5% 0.5 drps ophthalmic (eye) DAILY Tobacco use date assessed: 07/30/24 Fall risk assessment: No Falls in past year Last assessed Fall Risk: 07/30/24 Dental Screening Dental Screen Date: 01/21/24 HPI HPI Comments History of Present Illness Details 83 y/o male patient who presents to the clinic today for PE. A Patient of Modesto Hwang. Accompanied by Brother who provides history. No concerns today. [facility] Medical History (Updated 07/30/24 @ 12:44 by Eunice Merida NP) Encounter for routine adult health examination without abnormal findings Glaucoma Hypotonic bladder Osteoporosis Hyperglycemia Nocturia BPH (benign prostatic hyperplasia) Urgency of urination Diabetes mellitus Right inguinal hernia Bladder neck contracture Surgical History H/O urethrotomy Family History Father CVD (cardiovascular disease) Mother No problems noted. Other HTN (hypertension) Social History Household Members: Family Housing: House Are you a primary director critical care to a significant other at home: No Do you presently have visiting nurse or other home services: No Patient Tobacco Use Status: Never used Tobacco e-Cigarette/Vaping Use: Never Used Second Hand Smoke Exposure: No service: No Current occupational status: retired Cognitive needs: No Hearing needs: No Vision needs: No Questionnaire PHQ-9 Over the last 2 weeks, how often have you been bothered by any of the following problems? 1. Little interest or pleasure in doing things: not at all 2. Feeling down, depressed, or hopeless: not at all 3. Trouble falling or staying asleep, or sleeping too much: not at all 4. Feeling tired or having little energy: not at all 5. Poor appetite or overeating: not at all 6. Feeling bad about yourself - or that you are a failure or have let yourself or your family down: not at all 7. Trouble concentrating on things, such as reading the newspaper or watching television: not at all 8. Moving or speaking so slowly that other people could have noticed. Or the opposite - being so fidgety or restless that you have been moving around a lot more than usual: not at all 9. Thoughts that you would be better off or of hurting yourself in some way: not at all Total score: 0 Depression Screening Interpretation: Negative Depression Screening Done: Yes Source: Developed by Drs. Ramin Jameson, Ailyn Miller, Samir Ramachandran and colleagues, with an educational lynne from [employer]. Thrive Questionnaire Date Thrive assessed: 07/30/24 I am a: Patient What is your living situation today?: I have a steady place to live Within the past 12 months, did the food you bought not last and you didn't have the money to get more?: Never true Within the past 12 months, did you worry whether your food would run out before you got money to buy more?: Never true Do you have trouble paying for medicines?: No Do you have trouble getting transportation to medical appointments?: No Do you have trouble paying your heating and electricity bill?: No Do you have trouble taking care of your child, family member or friend?: No Do you have trouble with day-to-day activities such as bathing, preparing meals, shopping, managing finances, etc.?: No Are you currently unemployed and looking for a job?: No Are you interested in more education?: No Please select the resources that you would like help with: None Currently or been in a relationship where the following occur: No concerns reported THRIVE Score: 0 AUDIT C Alcohol Use Questionnaire (AUDIT-C) 1. How often do you have a drink containing alcohol?: Never 3. How often do you have six or more drinks on one occasion?: Never Total Score: 0 LUCILA-7 AMB Questionnaire LUCILA-7 Date LUCILA - 7 assessed: 07/30/24 Feeling nervous, anxious, or on edge: 0 = Not at all Not being able to stop or control worryin = Not at all Worrying too much about different things: 0 = Not at all Trouble relaxin = Not at all Being so restless that it is hard to sit still: 0 = Not at all Becoming easily annoyed or irritable: 0 = Not at all Feeling afraid as if something awful might happen: 0 = Not at all Total LUCILA-7 score (0-4 normal; 5-9 mild; 10-14 moderate; 15-21 severe): 0 Source: Developed by Drs. Ramin Jameson, Ailyn Miller, Samir Ramachandran and colleagues, with an educational lynne from [employer]. Review of Systems Const All systems reviewed & are unremarkable except as noted in HPI and below Physical exam (Primary Care) Vital Signs: Last Vital Signs Pulse 71 07/30/24 11:35 BP 108/70 07/30/24 11:35 Pulse Ox 100 07/30/24 11:35 Oxygen Delivery Method Room Air 07/30/24 11:35 BMI result Body Mass Index 23.6 Tobacco/Smoking Status: Tobacco use Status Tobacco use date assessed 07/30/24 07/30/24 11:41 Patient Tobacco Use Status Never used Tobacco 07/30/24 11:41 e-Cigarette/Vaping Use Never Used 07/30/24 11:41 PHQ-9: PHQ-9 Score PHQ-9: Total score 0 07/30/24 11:41 Depression Screening Interpretation: Negative Thrive Assessment: Date of Thrive Assessment Date Thrive assessed 07/30/24 07/30/24 11:41 Currently or been in a relationship where the following occur: No concerns reported Const General: cooperative and no acute distress Nutritional Appearance: well nourished Orientation/consciousness: patient oriented x3 HENMT Head: Yes normocephalic Ears: external ears normal and TM's normal bilaterally General nose exam: Normal external nose present Face and sinus: Yes sinuses nontender Mouth: moist mucous membranes Throat: Yes tonsils normal and Yes uvula midline Eyes Pupils: Equal, round and reactive pupils present EOM: EOMs intact bilaterally Neck Neck: Yes no lymphadenopathy Resp Effort & Inspection: normal respiratory effort and able to speak in complete sentences Auscultation: clear to auscultation bilaterally, no crackles, no rales, no rhonchi and no wheezes Cardio Heart sounds: S1 normal heart sound present and S2 normal heart sound present GI Inspection: Yes obesity Palpation (GI): Soft to palpation, not firm, nontender, no guarding, not rigid and No hepatosplenomegaly present Auscultation: normal bowel sounds Skin Rashes: rashes noted (Neck and chest. ) Neuro General: patient oriented x3 and moves all extremities Cranial nerves: Yes Equal, round and reactive pupils present Gait exam (Neuro): Assisted gait required (with one assist) Gait assisted method: other Motor exam (neuro): 5/5 motor strength present throughout Extrem General: Yes capillary refill normal Psych Speech and movement: Normal speech and movement present Coding Level of Care Code Est Pt Prev Care >65y(72084) Diagnoses Encounter for routine adult health examination without abnormal findings Z00.00 Assessment & Plan Assessment & Plan (1) Encounter for routine adult health examination without abnormal findings: Code(s): Z00.00 - Encounter for general adult medical examination without abnormal findings Category: Medical Plan: Exam WNL.
== END 2024-07-30 13:22 | disposition home or self-care (01) ==
LOC: HO.HMCC 11:29
PROVIDERS: PCP Nurse Practitioner Family; Visit Provider Nurse Practitioner Family
DX: Z00.00 Encounter for general adult medical examination without abnormal findings (principal)

== ENCOUNTER → 2024-07-30 11:28 | Outpatient (BNVA) | payer MEDICARE, SELFPAY | PROVIDERS: PCP Nurse Practitioner Family; Visit Provider Nurse Practitioner Family | DX: Z00.00 Encounter for general adult medical examination without abnormal findings (principal); M81.0 Age-related osteoporosis without current pathological fracture; E11.9 Type 2 diabetes mellitus without complications | CPT/HCPCS: 99397 ==

== ENCOUNTER 2025-02-01 10:06 | Outpatient (AMB) | payer MEDICARE, SELFPAY ==
[2025-02-01 10:12] VITALS: BP 106/70; PULSE 62; O2SAT 96; BMI 23.5
--- NOTE | 2025-02-01 10:12 | MHC.PC.OV ---
Vital Signs 02/01/25 10:12 Height 5 ft 9 in Weight 159 lb BMI 23.5 BP 106/70 Blood Pressure Location Rt brachial Position Sitting Pulse 62 Pulse Source Pulse Oximeter Pulse Oximetry (%) 96 Oxygen Delivery Method Room Air Intake Visit Reasons: 6 month f/u Allergies No Known Allergies [No Known Allergies*] Allergy (Verified 02/01/25 10:13) Tobacco use date assessed: 02/01/25 Fall risk assessment: No Falls in past year Last assessed Fall Risk: 02/01/25 Dental Screening Dental Screen Date: 02/01/25 Did you have a dental visit in the last 12 months?: Yes Did you have a dental problem in the last 6 months where you did not have access to dental care?: No Was dental information given to patient?: Patient has dentist HPI 6 month f/u HPI Details Chief Complaint The patient presents for a generalized six-month follow-up visit and evaluation for ongoing medical conditions. History of Present Illness The patient is an 84-year-old male presenting for a generalized six-month follow-up. 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 He reports no new symptoms and denies any episodes of chest pain or dyspnea, implying stable disease status. The patient's oncology evaluations align with this stable symptomatology. Additionally, he has a history of osteoporosis, which entails periodic bone health assessments due to increased fracture risk, common in elderly demographics. The absence of new symptoms suggests the current management plan for these conditions remains effective. Social History - Family status: Accompanied by his brother during the visit. Health Maintenance - Monitoring of Monoclonal Gammopathy of Undetermined Significance (MGUS) ongoing. - Bone density evaluation ordered due to history of osteoporosis. Review of Systems - Respiratory: Denies shortness of breath. - Cardiovascular: Denies chest pain. - General: Reports being in good spirits. Physical Exam General: Cooperative, healthy appearing, comfortable, no acute distress and well developed Orientation: Patient oriented x3 Limitations: No limitations Head: Normal to inspection Ears: Hearing grossly normal bilaterally Nose: Normal external nose present Face and sinus: Normal facial exam Eyes: Appearance normal, both eyes and all related structures Neck: Normal visual inspection and Yes full ROM Respiratory: Normal respiratory effort and able to speak in complete sentences. Clear to auscultation bilaterally Cardiovascular: Regular rate and rhythm. Normal S1 and S2 GI: Normal to inspection. Soft to palpation and nontender Skin: No rashes or lesions noted Neuro: Patient oriented x3 Extremities: Normal to inspection Results Plan Laboratory tests including immunofixation, CBC, and CMP will be conducted to track disease status of Monoclonal Gammopathy of Undetermined Significance MGUS). The absence of new symptoms as reported by the oncologist is a positive indication of condition stability. A bone density evaluation will be arranged for osteoporosis management. Continued multidisciplinary oversight will ensure comprehensive care and adaptation of management strategies as necessary. Discussion Notes We discussed the ongoing management of the patient's Monoclonal Gammopathy of Undetermined Significance (MGUS) and the importance of regular monitoring through specific lab tests?immunofixation, CBC, and CMP. I explained the role of these tests in tracking the disease status and aligning treatment with current oncologic assessments. Additionally, we reviewed osteoporosis management, emphasizing the need for a bone density scan to evaluate bone strength and outline preventive measures. Together, we affirmed the necessity of continued collaboration with the hematology and oncology teams. We did not identify any immediate changes to his management but reiterated the importance of reporting new symptoms promptly. Patient Instructions - Continue regular follow-ups with hematology for MGUS management. - Get blood tests as ordered (immunofixation, CBC, CMP). - Undergo a bone density scan to evaluate osteoporosis. - Report any new symptoms like chest pain or difficulty breathing. - Maintain any treatments or medications prescribed for existing conditions. [facility] Medical History Encounter for routine adult health examination without abnormal findings Glaucoma Hypotonic bladder Osteoporosis Hyperglycemia Nocturia BPH (benign prostatic hyperplasia) Urgency of urination Diabetes mellitus Right inguinal hernia Bladder neck contracture Surgical History H/O urethrotomy Family History Father CVD (cardiovascular disease) Mother No problems noted. Other HTN (hypertension) Social History Household Members: Family Housing: House Are you a primary rental boats caretaker to a significant other at home: No Do you presently have visiting nurse or other home services: No Patient Tobacco Use Status: Never used Tobacco e-Cigarette/Vaping Use: Never Used Second Hand Smoke Exposure: No service: No Current occupational status: retired Cognitive needs: No Hearing needs: No Vision needs: No Questionnaire PHQ-9 Over the last 2 weeks, how often have you been bothered by any of the following problems? 1. Little interest or pleasure in doing things: not at all 2. Feeling down, depressed, or hopeless: not at all 3. Trouble falling or staying asleep, or sleeping too much: not at all 4. Feeling tired or having little energy: not at all 5. Poor appetite or overeating: not at all 6. Feeling bad about yourself - or that you are a failure or have let yourself or your family down: not at all 7. Trouble concentrating on things, such as reading the newspaper or watching television: not at all 8. Moving or speaking so slowly that other people could have noticed. Or the opposite - being so fidgety or restless that you have been moving around a lot more than usual: not at all 9. Thoughts that you would be better off or of hurting yourself in some way: not at all Total score: 0 Depression Screening Interpretation: Negative Depression Screening Done: Yes 36803 - PHQ-9 Billing: Yes Source: Developed by Drs. Ramin Jameson, Ailyn Miller, Samir Ramachandran and colleagues, with an educational lynne from [employer]. Thrive Questionnaire Date Thrive assessed: 02/01/25 I am a: Patient What is your living situation today?: I have a steady place to live Within the past 12 months, did the food you bought not last and you didn't have the money to get more?: Never true Within the past 12 months, did you worry whether your food would run out before you got money to buy more?: Never true Do you have trouble paying for medicines?: No Do you have trouble getting transportation to medical appointments?: No Do you have trouble paying your heating and electricity bill?: No Do you have trouble taking care of your child, family member or friend?: No Do you have trouble with day-to-day activities such as bathing, preparing meals, shopping, managing finances, etc.?: No Are you currently unemployed and looking for a job?: No Are you interested in more education?: No Please select the resources that you would like help with: None Currently or been in a relationship where the following occur: No concerns reported THRIVE Score: 0 AUDIT C Alcohol Use Questionnaire (AUDIT-C) 1. How often do you have a drink containing alcohol?: Never 3. How often do you have six or more drinks on one occasion?: Never Total Score: 0 Score Reviewed/Action Taken: Yes LUCILA-7 AMB Questionnaire LUCILA-7 Date LUCILA - 7 assessed: 02/01/25 Feeling nervous, anxious, or on edge: 0 = Not at all Not being able to stop or control worryin = Not at all Worrying too much about different things: 0 = Not at all Trouble relaxin = Not at all Being so restless that it is hard to sit still: 0 = Not at all Becoming easily annoyed or irritable: 0 = Not at all Feeling afraid as if something awful might happen: 0 = Not at all Total LUCILA-7 score (0-4 normal; 5-9 mild; 10-14 moderate; 15-21 severe): 0 Source: Developed by Drs. Ramin Jameson, Ailyn Miller, Samir Ramachandran and colleagues, with an educational lynne from [employer]. LUCILA-7 Assessment Billing LUCILA-7 Assessment Tool: LUCILA-7 Assessment 58535 Physical exam (Primary Care) Vital Signs: Last Vital Signs Pulse 62 02/01/25 10:12 BP 106/70 02/01/25 10:12 Pulse Ox 96 02/01/25 10:12 Oxygen Delivery Method Room Air 02/01/25 10:12 BMI result Body Mass Index 23.5 Tobacco/Smoking Status: Tobacco use Status Tobacco use date assessed 02/01/25 02/01/25 10:17 Patient Tobacco Use Status Never used Tobacco 02/01/25 10:17 e-Cigarette/Vaping Use Never Used 02/01/25 10:17 PHQ-9: PHQ-9 Score PHQ-9: Total score 0 02/01/25 10:17 Depression Screening Interpretation: Negative Thrive Assessment: Date of Thrive Assessment Date Thrive assessed 02/01/25 02/01/25 10:17 Currently or been in a relationship where the following occur: No concerns reported Coding Level of Care Code Est Pt Level 3 (94717) Diagnoses MGUS (monoclonal gammopathy of unknown significance) D47.2 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 Orders: Orders Complete Blood Count Auto Diff Today D47.2 - Monoclonal gammopathy, D72.820 - Lymphocytosis (symptomatic) Comprehensive [place]. Panel Fast Today D47.2 - Monoclonal gammopathy, D72.820 - Lymphocytosis (symptomatic) Immunofixation Pnl, Serum Today D47.2 - Monoclonal gammopathy, D72.820 - Lymphocytosis (symptomatic) Lactate Dehydrogenase Today D47.2 - Monoclonal gammopathy, D72.820 - Lymphocytosis (symptomatic) XR DEXA axial skeleton Today M81.0 - Age-related osteoporosis without current pathological fracture TSH reflex Free T4 Today D47.2 - Monoclonal gammopathy, D72.820 - Lymphocytosis (symptomatic) UA CC w/rflx Micro + Cult Today D47.2 - Monoclonal gammopathy, D72.820 - Lymphocytosis (symptomatic) Lipid Panel Today D47.2 - Monoclonal gammopathy, D72.820 - Lymphocytosis (symptomatic) Vitamin D 25-OH (D2 and D3) Today M81.0 - Age-related osteoporosis without current pathological fracture
--- OUTSIDE RECORDS SUMMARY | 2025-02-01 10:38 | XMS_ITS ---
Author Organization [facility] Address [address] [place] [address] Care Team Providers Care Video Production Specialist Name Role Phone Modesto Kay Primary Care Provider Unav ailable Margaret Nielsen Unavailable [phone] Allergies No Known Allergies REASON FOR VISIT Pcp-08/12/24, Painful nail(s) aggravated by shoes causing difficulty standing/walking Medications Medication SIG (Take, Route, Frequency, Duration) Notes Start Date End Date Status clonazePAM 0.5 MG Oral for 90 Days Active Docusate Sodium 100 MG 1 capsule as need ed Orally Once a day for 30 day(s) 05/07/2024 Active Latanoprost 0.005 % INSTILL 1 DROP INTO EACH EYE IN THE EVENING Ophthalmic for 23 Days Active Systane 0.4-0.3 % as directed Ophthalmic Active Methenamine Hippurate 1 GM Oral for 90 Days Active Calcium + D 05/07/2024 Active MiraLax 05/07/2024 Active Vitamin C 1000 MG 1 tablet Orally Once a day for 30 day(s) 05/07/2024 Active Multi Vitamin - 1 tablet Orally Once a day for 30 day(s) 05/07/2024 Active Clotrimazole-Betamethasone 1-0.05 % External for 30 Days Active Timolol Maleate 0.5 % INSTILL 1 DROP INT O EACH EYE IN THE MORNING Ophthalmic for 37 Days Active Social History Tobacco Use: Social History Observation Description Date Details (start date - stop date) Never Smoker NA - NA Tobacco Use/Smoking Question Answer Notes Are you a: nonsmoker Additional Findings: Tobacco Non-User Current no n-smoker Tobacco use other than smoking: Question Answer Notes Are you an other tobacco user? No Vital Signs Height 5 ft 9 in in 08/26/2024 Weight 155 lbs 08/26/2024 BMI 22.89 kg/m2 08/26/2024 Procedures Procedure Date Ordered Date Performed Result Body Sit e 29925-CTXSXEN NAIL, 6 OR MORE 08/26/2024 N/A Encounters Encounter Location Date Provider Diagnosis [facility] [address] [address] 08/26/2024 Margaret Nielsen Pain in right toe(s) M79.674 ; Onychomycosis B35.1 and Pain in left toe(s) M79.675 Assessments Encounter Date Diagnosis (ICD Code) Assessment Notes Treatment Notes Treatment Clinical Notes Section Notes 08/26/2024 Pain in right toe(s) (ICD-10 - M79.674) 08/26/2024 Onychomycosis (ICD-10 - B35.1) 08/26/2024 Pain in left toe(s) (ICD-10 - M79.675) Plan Of Treatment Pending Test Test Name Order Date 88774-[id number] NAIL, 6 OR MORE 08/26/2024 Next Appt Details Follow Up: prn, Reason: Provider Name:Margaret perez, 05/10/2025 09:15:00 AM, [address] [place] [address], [id number], Procedure Notes * Category Sub-Category Detail Notes Debride Nail 6-10 Nail debridement Performance o f this nail treatment by a nonprofessional would put this patients foot and overall health at risk. Therefore, debridement to affected nail(s), as described in exam, was performed extensively to reduce/remove overall nail length, girth, thickness, subungual debris, and necrotic tissue, by manual and/or electrical means through the use of a nail nipper and/or dremel-type hand grinder, to a more viable healthy nail plate or bed tissue 6-10 nails in total. Silver nitrate was used for any petechial bleeding as necessary. Definitive antifungal treatment options, both pharmaceutical and surgical, have been reviewed and discussed with the patient. The patient solely prefers the use of intermittent/as needed professional debridement services for their nail condition and understands the need for additional periodic treatments to maintain effectiveness in symptomatic relief - 86639 Progress Notes * Reji TERAN GDOB:1940 (83 yo M)Acc No.[id number]:08/26/2024 Progress Note Patient:?Reji TERAN Provider:?Margaret Nielsen DPM :1940???Age:83 Y???Sex:Male Saurav e:08/26/2024 [address]:[place] [address], [place] [id number] Pcp:SHARMILA Bahena Subjective: * Chief Complaints: * ???Pcp-08/12/24Painful nail( s) aggravated by shoes causing difficulty standing/walking * HPI: ???Painful Nails:?Pt States Last PCP Visit:?Date:?08/03/2024 * ROS:?General/Constitutional:?Nausea?denies.?Vomiting?denies.?Hunger Thirst?denies.?Loss appetite?denies.?Chills?denies.?Fatigue?denies.?Fever?denies.?Night Sweats?denies.?Unexplained weight loss?denies.?Unexplained weight gain?denies.?HEENTM:?Dentures?denies.?Dizziness?denies.?Glasses/contacts?admits .?Retinopathy?denies.?Blurred/double vision?denies.?TMJ?denies.?Discharge/drainage?denies.?Implants?denies.?Sore throat?denies.?Dental implants?denies.?Hard of hearing ?denies.?Difficulty chewing/swallowing/speaking?denies.?Nose bleeds?denies.?Sore mouth?denies.?Respiratory:?On O xygen?denies.?Pneumonia/pleurisy?denies.?Bronchitis?denies.?Emphysema?denies.?Co ughing?denies.?Cough blood?denies.?Shortness of breath?denies.?Wheezing?denies.?Cardiovascular:?Pacemaker?denies.?MVP?denies.?WPW?denies.?CHF?denies.?Heart attack?denies.?Septal defect?denies.?Rapid beat?denies.?Chest pain ?denies.?Atrial Fib.?denies.?Murmur/Palpitations?denies.?Gastrointestinal:?Hemorrhoids?denies.?Stomach/Abdominal pain?denies.?Dark blood stool?denies.?Irritable bowel ?denies.?Constipation?denies.?Diarrhea?denies.?Hematology:?Swelling?denies.?Clots?denies.?Varicose Veins?denies.?Bruising?denies.?Bleeding problem?denies.?Genitourinary:?Blood urine?denies.?Frequent/Painfu/urination/bladder control?admits .?Kidney stones?denies.?Infection (UTI)?admits .?Nephropathy?denies.?sex trans dis (STD)?denies.?Prostate?admits .?Musculoskeletal:?Hammertoes?denies.?Bunions?denies.?Back Pain?admits .?Muscle Cramps/ Resting?denies.?Muscle cramps / walking?denies.?Generalized aches and pains?denies.?Weakness?denies.?Integ.:?Ojeda?denies.?Scars?denies.?Corns/calluses?denies.?Ingrown nails?admits .?Painful nails?admits .?Open Sores?denies.?Rashes?denies.?Neurologic:?Difficulty sleeping?denies.?Brain disorder?denies.?Numbness?denies.?Balance trouble?admits .?Confusion?denies.?Fainting/blackouts?denies.?Tingling?denies.?Tremors?admits .? * Medical History:? * Surgical History:?stricture of uterer 1945broken leg 1988 * Hospitalization/Major Diagno stic Procedure:?Denies Past Hospitalization * Family History:?Mother: dece ased.?Father: , heart attack.? * Social History:?Tobacco Use:?Tobacco Use/Smoking?Are you a:?nonsmoker ?Additional Findings: Tobacco Non-User?Current non-smoker ?Tobacco use other than smoking?Are you an other tobacco user??No * Medications:?TakingMethenami ne Hippurate 1 GM Tablet Oral Latanoprost 0.005 % Solution INSTILL 1 DROP INTO EACH EYE IN THE EVENING Ophthalmic clonazePAM 0.5 MG Tablet Oral Docusate Sodium 100 MG Capsule 1 capsule as needed Orally Once a day Timolol Maleate 0.5 % Solution INSTILL 1 DROP INTO EACH EYE IN THE MORNING Ophthalmic Clotrimazole-Betamethasone 1-0.05 % Cream External Vitamin C 1000 MG Tablet 1 tablet Orally Once a day Multi Vitamin - Tablet 1 tablet Orally Once a day Calcium + D MiraLax Systane 0.4-0.3 % Solution as directed Ophthalmic Medication List reviewed and reconciled with the patientTaking Methenamine Hippurate 1 GM Tablet Oral Taking Latanoprost 0.005 % Solution INSTILL 1 DROP INTO EACH EYE IN THE EVENING Ophthalmic Taking clonazePAM 0.5 MG Tablet Oral Taking Docusate Sodium 100 MG Capsule 1 capsule as needed Orally Once a day Taking Timolol Maleate 0.5 % Solution INSTILL 1 DROP INTO EACH EYE IN THE MORNING Ophthalmic Taking Clotrimazole-Betamethasone 1-0.05 % Cream External Taking Vitamin C 1000 MG Tablet 1 tablet Orally Once a day Taking Multi Vitamin - Tablet 1 tablet Orally Once a day Taking Calcium + D Taking MiraLax Taking Systane 0.4-0.3 % Solution as directed Ophthalmic Medication List reviewed and reconciled with the patient * Allergies:?N.K.D.A.yes[Aller gies Verified] Objective: * Vitals:?Ht: 5 ft 9 in, Wt: 1 55, BMI: 22.89, Shoe size: 10-10.5, BS: not taken, Ht-cm: 175.26 cm, Wt-k.31 kg. * Examination: ???CQM Exceptions:: ?Hemoglobin A1c not performed?Reason:?No reason specified?Ophthalmology Referral: ?DIABETES EYE EXAM?Procedure Performed:?Yes ?Date of Exam Performed?03/23/2024 ?Findings of Diabetic Eye Exam:?no retinopathy?Nails: ?NAILS are:?Elongated, overgrown, dystrophic, lytic, greater than 3mm thick, discolored and friable with crumbly malodorous subungual debris, with pain on palpation, 1-5 B/L.?Dermatologic: ?SKIN FINDINGS:?Skin exam reveals normal texture, elasticity, and tugor. There are no masses. The interspaces are clear.?Neurological: ?SENSORY:?neurological exam reveals intact sensorium, pain sensation normal, vibration sensation intact, pinprick sensation is normal in the lower extremities, anesthesia, burning, tingling, B/L.?Vascular: ?DP PULSES(B):? 1/4, B/L.?PT PULSES(B):? 1/4, B/L.?CAPILLARY FILL TIME:?3 secs. per digit. B/L.?TROPHIC CONDITION-TEXTURE/ELASTICITY/TURGOR/HAIR GROWTH(B):?normal, B/L.?TEMPERTURE GRADIENT(C):?normal, B/L.?PIGMENTATION:?normal, B/L.?EDEMA(C):?absent, B/L.?TELANGECTASIA:?absent, B/L.? Assessment: * Assessment: 1.?Pain in right toe(s) - M7 9.674???2.?Onychomycosis - B35.1 (Primary)???3.?Pain in left toe(s) - M79.675??? Plan: * Treatment: * Procedures:?Debride Nail 6-10:?Nail debridement?Performance of this nail treatment by a nonprofessional would put this patients foot and overall health at risk. Therefore, debridement to affected nail(s), as described in exam, was performed extensively to reduce/remove overall nail length, girth, thickness, subungual debris, and necrotic tissue, by manual and/or electrical means through the use of a nail nipper and/or dremel-type hand grinder, to a more viable healthy nail plate or bed tissue 6-10 nails in total. Silver nitrate was used for any petechial bleeding as necessary. Definitive antifungal treatment options, both pharmaceutical and surgical, have been reviewed and discussed with the patient. The patient solely prefers the use of intermittent/as needed professional debridement services for their nail condition and understands the need for additional periodic treatments to maintain effectiveness in symptomatic relief - 48340.? * Procedure Codes:?25248 DEBRI DE NAIL, 6 OR MORE * Follow Up:?prn * Images: * Sign off status: Completed true * Provider:?Margaret Nielsen DPM Date:?1 10/27/2023 Generated for Pretty balderrama/Alverto/eTdebbiesmkirill on:?02/01/2025 10:37 AM EDT History and Physical Notes * HPI (History of Present Illness) Category Sub-Category Detail Notes Category Not es Painful Nails Pt States Last PCP Visit: Date:: 08/03/2024 Examination Category Sub-Category Detail Notes Category Not es Neurological SENSORY: neurological exa m reveals intact sensorium, pain sensation normal, vibration sensation intact, pinprick sensation is normal in the lower extremities, anesthesia, burning, tingling, B/L Dermatologic SKIN FINDINGS: Skin exam reveal s normal texture, elasticity, and tugor. There are no masses. The interspaces are clear Ophthalmology Referral DIABETES EYE EXAM Procedu re Performed:: Yes ?Date of Exam Performed: 03/23/2024 Findings of Diabetic Eye Exam:: no retin opathy Vascular DP PULSES (B): 1/4, B/L PT PULSES (B): 1/4, B/L CAPILLARY FILL TIME: 3 secs. per digit. B/L TEMPERTURE GRADIENT (C): normal, B/L TROPHIC CONDITION-TEXTURE/ELASTICITY/TUR GOR/HAIR GROWTH (B): normal, B/L EDEMA (C): absent, B/L TELANGECTASIA: absent, B/L PIGMENTATION: normal, B/L Nails NAILS are: Elongated, overg rown, dystrophic, lytic, greater than 3mm thick, discolored and friable with crumbly malodorous subungual debris, with pain on palpation, 1-5 B/L CQM Exceptions: Hemoglobin A1c not performed Reason:: No r edison specified
--- OUTSIDE RECORDS SUMMARY | 2025-02-01 10:38 | XMS_ITS ---
Author Organization [facility] Address [address] [place] [address] Care Team Providers Care Phlebotomist Name Role Phone Modesto Kay Primary Care Provider Unav ailable Margaret Nielsen Unavailable [phone] Yifan Clark Unavailable [phone] Allergies No Known Allergies REASON FOR VISIT Pcp-02/13, Ingrown nail(s), Skin problem, Painful nail(s) aggrevated by shoes and causing difficulty standing/walking. Medications Medication SIG (Take, Route, Frequency, Duration) Notes Start Date End Date Status clonazePAM 0.5 MG Oral for 90 Days Active Latanoprost 0.005 % INSTILL 1 DROP INTO EACH EYE IN THE EVENING Ophthalmic for 23 Days Active Methenamine Hippurate 1 GM Oral for 90 Days Active Systane 0.4-0.3 % as directed Ophthalmic Active MiraLax 05/07/2024 Active Timolol Maleate 0.5 % INSTILL 1 DROP INT O EACH EYE IN THE MORNING Ophthalmic for 37 Days Active Calcium + D 05/07/2024 Active Multi Vitamin - 1 tablet Orally Once a day for 30 day(s) 05/07/2024 Active Vitamin C 1000 MG 1 tablet Orally Once a day for 30 day(s) 05/07/2024 Active Clotrimazole-Betamethasone 1-0.05 % External for 30 Days Active Docusate Sodium 100 MG 1 capsule as need ed Orally Once a day for 30 day(s) 05/07/2024 Active Social History Tobacco Use: Social History Observation Description Date Details (start date - stop date) Never Smoker NA - NA Tobacco Use/Smoking Question Answer Notes Are you a: nonsmoker Additional Findings: Tobacco Non-User Current no n-smoker Alcohol Screen Question Answer Notes Did you have a drink containing alcohol in the p ast year? No Points 0 Interpretation Negative Tobacco use other than smoking: Question Answer Notes Are you an other tobacco user? No Vital Signs Height 5 ft 9 in in 05/27/2024 Weight 163 lbs lbs 05/27/2024 BMI 24.07 kg/m2 05/27/2024 Encounters Encounter Location Date Provider Diagnosis [facility] [place] [address] [place] [address] 05/27/2024 Yifan Clark Ingrowing nail L60.0 ; Skin disease L98.9 ; Tinea unguium B35.1 ; Pain in right toe(s) M79.674 and Pain in left toe(s) M79.675 Assessments Encounter Date Diagnosis (ICD Code) Assessment Notes Treatment Notes Treatment Clinical Notes Section Notes 05/27/2024 Ingrowing nail (ICD-10 - L60.0) 05/27/2024 Skin disease (ICD-10 - L98.9) 05/27/2024 Tinea unguium (ICD-10 - B35.1) 05/27/2024 Pain in right toe(s) (ICD-10 - M79.674) 05/27/2024 Pain in left toe(s) (ICD-10 - M79.675) Plan Of Treatment Next Appt Details Follow Up: 3 Months, Reason: Provider Name:Margaret perez, 05/10/2025 09:15:00 AM, [address] [place], [address], Procedure Notes * Category Sub-Category Detail Notes Debride Nail 6-10 Nail debridement Nail debridem ent performed extensively to reduce/remove overall nail length and girth, subungual debris, and necrotic tissue, by manual and electrical means with use of a nail nipper and/or dremel, to more viable healthy nail plate or bed tissue 6-10. Silver nitrate used for any petechial bleeding as necessary. Patient chooses, no pharmaceutical tx (58536) Progress Notes * Reji TERAN GDOB:1940 (83 yo M)Acc No.[id number]:05/27/2024 Progress Notes Patient:?Reji Teran Provider:?Yifan Clark DPM :1940???Age:83 Y???Sex:Male Saurav e:05/27/2024 Address:[address] Pcp:Modesto Hwang NP-RUBIA Subjective: * Chief Complaints: * ???Pcp-02/13Ingrown nail(s)S kin problem Painful nail(s) aggrevated by shoes and causing difficulty standing/walking. * HPI: ???Skin problems:?Nature:?tender, aching, discolored.?Location:?B/L, Toe(s).?Duration:?a few months.?Course:?worse.?Aggravated by:?any pressure, shoe gear.?Treatments:?past hx of tx with dpm's.?Severity/Quality:?moderate.?Misc:?brother is present and acts as historian.?Painful Nails:?Pt States Last PCP Visit:?Date:?01/25/2024 * ROS:?General/Constitutional:?Nausea?denies.?Vomiting?denies.?Hunger Thirst?denies.?Loss appetite?denies.?Chills?denies.?Fatigue?denies.?Fever?denies.?Night Sweats?denies.?Unexplained weight loss?denies.?Unexplained weight gain?denies.?HEENTM:?Dentures?denies.?Dizziness?denies.?Glasses/contacts?admits ?.?Retinopathy?denies.?Blurred/double vision?denies.?TMJ?denies.?Discharge/drainage?denies.?Implants?denies.?Sore throat?denies.?Dental implants?denies.?Hard of hearing ?denies.?Difficulty chewing/swallowing/speaking?denies.?Nose bleeds?denies.?Sore mouth?denies.?Respiratory:?On Oxygen?denies.?Pneumonia/pleurisy?denies.?Bronchitis?denies.?Emphysema?denies.?C oughing?denies.?Cough blood?denies.?Shortness of breath?denies.?Wheezing?denies.?Cardiovascular:?Pacemaker?denies.?MVP?denies.?WPW?denies.?CHF?denies.?Heart attack?denies.?Septal defect?denies.?Rapid beat?denies.?Chest pain ?denies.?Atrial Fib.?denies.?Murmur/Palpitations?denies.?Gastrointestinal:?Hemorrhoids?denies.?Stomach/Abdominal pain?denies.?Dark blood stool?denies.?Irritable bowel ?denies.?Constipation?denies.?Diarrhea?denies.?Hematology:?Swelling?denies.?Clots?denies.?Varicose Veins?denies.?Bruising?denies.?Bleeding problem?denies.?Genitourinary:?Blood urine?denies.?Frequent/Painfu/urination/bladder control?admits ?.?Kidney stones?denies.?Infection (UTI)?admits ?.?Nephropathy?denies.?sex trans dis (STD)?denies.?Prostate?admits ?.?Musculoskeletal:?Hammertoes?denies.?Bunions?denies.?Back Pain?admits ?.?Muscle Cramps/ Resting?denies.?Muscle cramps / walking?denies.?Generalized aches and pains?denies.?Weakness?denies.?Integ.:?Ojeda?denies.?Scars?denies.?Corns/calluses?denies.?Ingrown nails?admits ?.?Painful nails?admits ?.?Open Sores?denies.?Rashes?denies.?Neurologic:?Difficulty sleeping?denies.?Brain disorder?denies.?Numbness?denies.?Balance trouble?admits ?.?Confusion?denies.?Fainting/blackouts?denies.?Tingling?denies.?Tremors? admits ?.? * Medical History:? * Surgical History:?stricture of uterer 1945broken leg 1988 * Hospitalization/Major Diagno stic Procedure:?Denies Past Hospitalization * Family History:?Mother: dece ased.?Father: , heart attack.? * Social History:?Tobacco Use:?Tobacco Use/Smoking?Are you a:?nonsmoker ?Additional Findings: Tobacco Non-User?Current non-smoker ?Tobacco use other than smoking?Are you an other tobacco user??No ???Drugs/Alcohol:?Drugs?Have you used drugs other than those for medical reasons in the past 12 months??No ?Alcohol Screen?Did you have a drink containing alcohol in the past year??No ?Points?0 ?Interpretation?Negative ???Miscellaneous:?Caffeine: yes, frequency:, 1-2 cups per day. ?no Children. ?no Exercise. ?Marital status: single. ?Occupation: Retired, self employed. * Medications:?TakingMethenami ne Hippurate 1 GM Tablet Oral Latanoprost 0.005 % Solution INSTILL 1 DROP INTO EACH EYE IN THE EVENING Ophthalmic clonazePAM 0.5 MG Tablet Oral Docusate Sodium 100 MG Capsule 1 capsule as needed Orally Once a dayTimolol Maleate 0.5 % Solution INSTILL 1 DROP INTO EACH EYE IN THE MORNING Ophthalmic Clotrimazole-Betamethasone 1-0.05 % Cream External Vitamin C 1000 MG Tablet 1 tablet Orally Once a dayMulti Vitamin - Tablet 1 tablet Orally Once a dayCalcium + D MiraLax Systane 0.4-0.3 % Solution as directed Ophthalmic Medication List reviewed and reconciled with the patientTaking Methenamine Hippurate 1 GM Tablet Oral Taking Latanoprost 0.005 % Solution INSTILL 1 DROP INTO EACH EYE IN THE EVENING Ophthalmic Taking clonazePAM 0.5 MG Tablet Oral Taking Docusate Sodium 100 MG Capsule 1 capsule as needed Orally Once a dayTaking Timolol Maleate 0.5 % Solution INSTILL 1 DROP INTO EACH EYE IN THE MORNING Ophthalmic Taking Clotrimazole-Betamethasone 1-0.05 % Cream External Taking Vitamin C 1000 MG Tablet 1 tablet Orally Once a dayTaking Multi Vitamin - Tablet 1 tablet Orally Once a dayTaking Calcium + D Taking MiraLax Taking Systane 0.4-0.3 % Solution as directed Ophthalmic Medication List reviewed and reconciled with the patient * Allergies:?N.K.D.A.yes[Aller gies Verified] Objective: * Vitals:?Ht: 5 ft 9 in, Wt: 1 63 lbs, BMI: 24.07, Shoe size: 10-10.5, BS: not taken, Ht-cm: 175.26 cm, Wt-k.94 kg. * Examination: ???Ophthalmology Referral: ?DIABETES EYE EXAM?Diabetic Retinopathy Screening:?Yes ?Findings of Diabetic Eye Exam:?no retinopathy?Dermatologic: ?SKIN FINDINGS:?Skin exam reveals normal texture, elasticity, and tugor. There are no masses. The interspaces are clear.?Ingrown Nail: ?INSPECTION:? Reveals nail incurvation, pain on palpation, groove hypertrophy, groove ischemia, Bilateral nail borders, TA, T5.?General Examination: ?GENERAL APPEARANCE:?pleasant, alert, well nourished, well developed, well hydrated, with good attention to hygene/body habitus, and in no acute distress.?ORIENTED:?person,place, and time.?Neurological: ?SENSORY:?neurological exam reveals intact sensorium, pain sensation normal, vibration sensation intact, pinprick sensation is normal in the lower extremities, anesthesia, burning, tingling, B/L.?Vascular: ?DP PULSES:? 09/26, B/L.?PT PULSES:? 09/26, B/L.?CAPILLARY FILL TIME:?3 secs. per digit. B/L.?SKIN TEMPERTURE GRADIENT OF THE LOWER EXTERMITIES:?normal, B/L.?HAIR GROWTH/TEXTURE/ELASTICITY/TURGOR:?normal, B/L.?PIGMENTATION:?normal, B/L.?EDEMA:?absent, B/L.?TELANGECTASIA:?absent, B/L.?Orthopedic: ?MUSCLE STRENGTH:?5/5 all groups in a symmetrical fashion , B/L.?FOOT MORPHOLOGY:? Pes Planus structure, B/L.?Nails: ?NAILS are:? Elongated, overgrown, dystrophic, lytic, greater than 3mm thick, discolored and friable with crumbly malodorous subungual debris, with pain on palpation, 1-5 B/L.? Assessment: * Assessment: 1.?Ingrowing nail - L60.0 (P rimary)?2.?Skin disease - L98.9?3.?Tinea unguium - B35.1?4.?Pain in right toe(s) - M79.674?5.?Pain in left toe(s) - M79.675? Plan: * Treatment: * Procedures:?Debride Nail 6-10:?Nail debridement?Nail debridement performed extensively to reduce/remove overall nail length and girth, subungual debris, and necrotic tissue, by manual and electrical means with use of a nail nipper and/or dremel, to more viable healthy nail plate or bed tissue 6-10. Silver nitrate used for any petechial bleeding as necessary. Patient chooses, no pharmaceutical tx (50990).? * Procedure Codes:?37491 DEBRI DE NAIL, 6 OR MORE, Modifiers: XS * Preventive Medicine:? ??Counseling:?Discussion:?-03: Office or other outpatient visit for the evaluation and management of a new patient, which required a medically appropriate history and/or examination and LOW level of DECISION MAKING for: 1 STABLE ACUTE UNCOMPLICATED PROBLEM, 2 OR MORE MINOR PROBLEMS, OR 1 STABLE CHRONIC PROBLEM, THAT POSE(S) A LOW RISK FOR MORBIDITY/MORTALITY. The visit on the day of the encounter encompassed interpreting the data and educating the patient as to the nature of their condition, treatment options available according to their individual PMH, meds, allergies, and overall health/living conditions, as well as any potential risks or complications that may occur from a failure to adhere to, and participate in, the recommended course of therapy. The discussion included a complete verbal, and/or written explanation of the examination results, any x-rays taken, the proposed diagnosis, and outline of the treatment plan. A schedule for future care needs was also explained. The patient verbalized an understanding of the instructions at this time and agreed to be an active participant in their treatment. If the patient should think of any questions or concerns after the visit, I have encouraged the patient to call the office--pt to call for na prn pain.?Fungal Nail Counseling:?The patient was counseled on the diagnosis, potential etiologies (including, but not limited to, environmental factors, genetic, immune deficiency), and the multiple treatment options for Onychomycosis. We discussed the risks and benefits of each option from performing no treatment, to ultraviolet light shoe treatment, to laser nail treatment, to applying topical antifungals, to taking oral antifungal medication, to surgical removal of the involved nail(s) with or without performing a matricectomy, or any combination thereof. We discussed the advantages and disadvantages of each of possible treatment and importance for adherence to all the recommended therapies for optimum success. This includes the necessity for weekly emery board self nail home debridements, and control the nail and skin environment as much as possible by only using a fresh, dry pair of shoes/socks each day, as well as keeping the skin as dry as possible through the use of sprays/powders if necessary. The patient was instructed to discard the emery board after use to prevent reinfection of the involved nail(s). We discussed the mycological and visual clinical effectiveness of topical vs oral antifungal treatments as well as each ones potential side effects and/or any patient- specific medication interactions. We discussed the reasons behind the important requirement of regular liver function testing with oral antifungal therapy for safety. Patient questions regarding use, dosage, successful outcomes, blood tests, and possible pharmaceutical interactions were reviewed and the patient verbalized that all answers were clearly understood.? * Follow Up:?3 Months * Images: * Sign off status: Completed true * Provider:?Yifan Clark DPM Date:? 024 Generated for Pretty balderrama/Alverto/Stephanie on:?02/01/2025 10:37 AM EDT History and Physical Notes * HPI (History of Present Illness) Category Sub-Category Detail Notes Category Not es Painful Nails Pt States Last PCP Visit: Date:: 01/25/2024 Skin problems Nature: tender, aching, discolored Location: B/L, Toe(s) Duration: a few months Course: worse Aggravated by: any pressure, shoe g ear Treatments: past hx of tx with d pm's Severity/Quality: moderate Misc: brother is present a nd acts as historian Examination Category Sub-Category Detail Notes Category Not es Ingrown Nail INSPECTION: Reveals nail inc urvation, pain on palpation, groove hypertrophy, groove ischemia, Bilateral nail borders, TA, T5 Neurological SENSORY: neurological exa m reveals intact sensorium, pain sensation normal, vibration sensation intact, pinprick sensation is normal in the lower extremities, anesthesia, burning, tingling, B/L Dermatologic SKIN FINDINGS: Skin exam reveal s normal texture, elasticity, and tugor. There are no masses. The interspaces are clear Orthopedic FOOT MORPHOLOGY: Pes Planus structure, B/ L MUSCLE STRENGTH: 5/5 all groups in a symmetrical fashion , B/L General Examination GENERAL APPEARANCE: pleasant , alert, well nourished, well developed, well hydrated, with good attention to hygene/body habitus, and in no acute distress ORIENTED: person,place, and ti dc Ophthalmology Referral DIABETES EYE EXAM Diabetic Retinopa thy Screening:: Yes Findings of Diabetic Eye Exam:: no retin [...]
--- OUTSIDE RECORDS SUMMARY | 2025-02-01 10:38 | XMS_ITS ---
Author Organization [facility] Address [address] [place] [address] Care Team Providers Care Fusing Machine Tender Name Role Phone Modesto Kay Primary Care Provider Unav ailable Margaret Nielsen Unavailable [phone] Allergies No Known Allergies REASON FOR VISIT Painful nail(s) aggravated by shoes causing difficulty standing/walking Medications Medication SIG (Take, Route, Frequency, Duration) Notes Start Date End Date Status Systane 0.4-0.3 % as directed Ophthalmic 4 Active MiraLax 05/07/2024 Active Calcium + D 05/07/2024 Active Multi Vitamin - 1 tablet Orally Once a day for 30 day(s) 05/07/2024 Active Vitamin C 1000 MG 1 tablet Orally Once a day for 30 day(s) 05/07/2024 Active Latanoprost 0.005 % INSTILL 1 DROP INTO EACH EYE IN THE EVENING Ophthalmic for 23 Days Active Docusate Sodium 100 MG 1 capsule as need ed Orally Once a day for 30 day(s) 05/07/2024 Active clonazePAM 0.5 MG Oral for 90 Days Active Clotrimazole-Betamethasone 1-0.05 % External for 30 Days Active Timolol Maleate 0.5 % INSTILL 1 DROP INT O EACH EYE IN THE MORNING Ophthalmic for 37 Days Active Methenamine Hippurate 1 GM Oral for 90 Days Active Social History Tobacco Use: Social History Observation Description Date Details (start date - stop date) Never Smoker NA - NA Tobacco use other than smoking: Question Answer Notes Are you an other tobacco user? No Tobacco Control (Standard) Question Answer Notes Tobacco use: Nonsmoker Additional Findings: Tobacco non-user Current no nsmoker AUDIT-C (Standard) Question Answer Notes Did you have a drink containing alcohol in the p ast year? No Points 0 Interpretation Negative Vital Signs Height 5 ft 9 in in 01/06/2025 Weight 155 lbs 01/06/2025 BMI 22.89 kg/m2 01/06/2025 Blood pressure systolic 130 mm Hg 01/07/20 25 Blood pressure diastolic 80 mm Hg 025 Procedures Procedure Date Ordered Date Performed Result Body Sit e 23920-AAJIPKW NAIL, 6 OR MORE 01/06/2025 N/A Encounters Encounter Location Date Provider Diagnosis [facility] [address] [address] 01/06/2025 Margaret Nielsen Pain in right toe(s) M79.674 ; Onychomycosis B35.1 and Pain in left toe(s) M79.675 Assessments Encounter Date Diagnosis (ICD Code) Assessment Notes Treatment Notes Treatment Clinical Notes Section Notes 01/06/2025 Pain in right toe(s) (ICD-10 - M79.674) 01/06/2025 Onychomycosis (ICD-10 - B35.1) 01/06/2025 Pain in left toe(s) (ICD-10 - M79.675) Plan Of Treatment Pending Test Test Name Order Date 26587-EVHANTU NAIL, 6 OR MORE 01/06/2025 Next Appt Details Follow Up: prn, Reason: Provider Name:Margaret Phillynarinder ana, 05/10/2025 09:15:00 AM, [address] [place] [address], [id number], Procedure Notes * Category Sub-Category Detail Notes Debride Nail 6-10 Nail debridement Due to the cl inical pathology outlined in the exam findings, performance of this nail treatment is medically necessary as its management by an unskilled/untrained nonprofessional would put this patients foot and overall health at risk. Therefore, debridement to affected nail(s), as described in exam ( TA, T1, T2, T3, T4, T5, T6, T7, T8, T9, ), was performed exclusively by the physician of record to reduce/remove overall nail length, girth, thickness, subungual debris, and necrotic tissue, by manual and/or electrical means through the use of a nail nipper and/or dremel-type crystal flat grinder, to a more viable healthy nail [...] to maintain effectiveness in symptomatic relief - 52109 Progress Notes * MARINReji GDOB:1940 (84 yo M)Acc No.[id number]:01/06/2025 Progress Note Patient:?Reji TERAN Provider:?Margaret Nielsen DPM :1940???Age:84 Y???Sex:Male Saurav e:01/06/2025 Address:[address] Pcp:SHARMILA Bahena Subjective: * Chief Complaints: * ???Painful nail(s) aggravate d by shoes causing difficulty standing/walking * HPI: ???Painful Nails:?Pt States Last PCP Visit:?Date:?08/12/2024 * ROS:?General/Constitutional:?Nausea?denies.?Vomiting?denies.?Hunger Thirst?denies.?Loss appetite?denies.?Chills?denies.?Fatigue?denies.?Fever?denies.?Night Sweats?denies.?Unexplained weight loss?denies.?Unexplained [...] , heart attack.? * Social History:?Tobacco Use:?Tobacco use other than smoking?Are you an other tobacco user??No ?Tobacco Control (Standard)?Tobacco use:?Nonsmoker ?Additional Findings: Tobacco non-user?Current nonsmoker ???Drugs/Alcohol:?Drugs?Have you used drugs other than those for medical reasons in the past 12 months??No ???Miscellaneous:?Caffeine: yes, frequency:, 1-2 cups per day. ?Children: no. ?Exercise: no. ?Marital status: single. ?Occupation: Retired, self employed. ???Drug/Alcohol:?AUDIT-C (Standard)?Did you have a drink containing alcohol in the past year??No ?Points?0 ?Interpretation?Negative * Medications:?TakingMethenami ne Hippurate 1 GM Tablet [...] Objective: * Vitals:?Ht: 5 ft 9 in, Wt:15 5, BMI: 22.89, Shoe size:10-10.5, BP:130/80mm Hg, BS:not taken, Ht-cm: 175.26 cm, Wt-k.31 kg. * Examination: ???CQM Exceptions:: ?Hemoglobin A1c not performed?Reason:?No reason specified?Ophthalmology Referral: ?DIABETES EYE EXAM?Procedure Performed:?Yes ?Date of Exam Performed?03/23/2024 ?Findings of Diabetic Eye Exam:?no retinopathy?Nails: ?NAILS are:?Elongated, overgrown, dystrophic, lytic, greater than 3mm thick, discolored and friable with crumbly malodorous subungual debris, with pain on palpation,, TA, T1, T2, T3, T4, T5, T6, T7, T8, T9.?Dermatologic: ?SKIN FINDINGS:?Skin exam reveals normal texture, elasticity, and tugor. There are no masses. The interspaces are clear.?Neurological: ?SENSORY:?neurological exam reveals intact sensorium, pain sensation normal, vibration sensation intact, pinprick sensation is normal in the lower extremities, anesthesia, burning, tingling, B/L.?Vascular: ?DP PULSES (B):? 09/26, B/L.?PT PULSES (B):? 09/26, B/L.?CAPILLARY FILL TIME:?3 secs. per digit. B/L.?TROPHIC CONDITION-TEXTURE/ELASTICITY/TURGOR/HAIR GROWTH (B):?normal, B/L.?TEMPERTURE GRADIENT (C):?normal, B/L.?PIGMENTATION:?normal, B/L.?EDEMA (C):?absent, B/L.?TELANGECTASIA:?absent, B/L.? Assessment: * Assessment: 1.?Pain in right toe(s) - M7 9.674???2.?Onychomycosis - B35.1 (Primary)???3.?Pain in left toe(s) - M79.675??? Plan: * Treatment: * Procedures:?Debride Nail 6-10:?Nail debridement?Due to the clinical pathology outlined in the exam findings, performance of this nail treatment is medically necessary as its management by an unskilled/untrained nonprofessional would put this patients foot and overall health at risk. Therefore, debridement to affected nail(s), as described in exam (? TA, T1, T2, T3, T4, T5, T6, T7, T8, T9, ), was performed exclusively by the physician of record to reduce/remove overall nail length, girth, thickness, subungual debris, and necrotic tissue, by manual and/or electrical means through the use of a nail nipper and/or dremel-type crystal flat grinder, to a more viable healthy nail plate or bed tissue 6- 10 nails in total. Silver nitrate was used for any petechial bleeding as necessary. Definitive antifungal treatment options, both pharmaceutical and surgical, have been reviewed and discussed with the patient. The patient solely prefers the use of intermittent/as needed professional debridement services for their nail condition and understands the need for additional periodic treatments to maintain effectiveness in symptomatic relief - 31035.? * Procedure Codes:?85117 DEBRI DE NAIL, 6 OR MORE * Follow Up:?prn * Images: * Sign off status: Completed true * Provider:?Margaret Nielsen DPM Date:?0 01/06/2025 Generated for Pretty balderrama/Alverto/eTransmitting on:?02/01/2025 10:38 AM EDT History and Physical Notes * HPI (History of Present Illness) Category Sub-Category Detail Notes Category Not es Painful Nails Pt States Last PCP Visit: Date:: 08/12/2024 Examination Category Sub-Category Detail Notes Category Not [...] crumbly malodorous subungual debris, with pain on palpation,, TA, T1, T2, T3, T4, T5, T6, T7, T8, T9 CQM Exceptions: Hemoglobin A1c not performed Reason:: No r edison specified
--- OUTSIDE RECORDS SUMMARY | 2025-02-01 10:38 | XMS_ITS | Patient Health Record ---
Author Organization [facility] Address [address] [facility] [place] [address] Care Team Providers Care Manager Social Name Role Phone Modesto Kay Primary Care Provider Unav ailable Margaret Nielsen Unavailable [phone] Yifan Clark Unavailable [phone] Allergies No Known Allergies Reason For Referral Diagnosis 1 Pain in unspecified foot (M79.673) Referring Provider First Name [place] Referring Provider [facility] Referred Provider Yifan Clark Referred Address [address] [facility],[place],[address], Referred Provider Specialty Podiatry Referral Priority Routine Diagnosis 1 Tinea unguium (B35.1 ) Diagnosis 2 Ingrowing nail (L60. 0) Diagnosis 3 Pain in right toe(s) (M79.674) Diagnosis 4 Pain in left toe(s) (M79.675) Diagnosis 5 Skin disease (L98.9) Referring Provider First Name [place] Referring Provider Last Name [facility] Referred Provider Margaret Nielsen Referred Address [address] [facility],[place],[address], Referred Provider Specialty Podiatry Referral Priority Routine Medications Medication SIG (Take, Route, Frequency, Duration) Notes Start Date End Date Status Systane 0.4-0.3 % as directed Ophthalmic Active MiraLax 05/07/2024 Active Latanoprost 0.005 % INSTILL 1 DROP INTO EACH EYE IN THE EVENING Ophthalmic for 23 Days Active Methenamine Hippurate 1 GM Oral for 90 Days Active Calcium + D 05/07/2024 Active Multi Vitamin - 1 tablet Orally Once a day for 30 day(s) 05/07/2024 Active Vitamin C 1000 MG 1 tablet Orally Once a day for 30 day(s) 05/07/2024 Active Docusate Sodium 100 MG 1 capsule as need ed Orally Once a day for 30 day(s) 05/07/2024 Active clonazePAM 0.5 MG Oral for 90 Days Active Clotrimazole-Betamethasone 1-0.05 % External for 30 Days Active Timolol Maleate 0.5 % INSTILL 1 DROP INT O EACH EYE IN THE MORNING Ophthalmic for 37 Days Active Immunizations Vaccine Route Administration Date Status Comme nts Influenza Unknown 05/24/2023 Administered Social History Tobacco Use: Social History Observation [...] No Points 0 Interpretation Negative Vital Signs Blood pressure diastolic 80 mm Hg 01/06/2025 Height 5 ft 9 in in 01/06/2025 Blood pressure systolic 130 mm Hg 01/06/2025 Weight 155 lbs 01/06/2025 BMI 22.89 kg/m2 01/06/2025 Procedures Procedure Date Ordered Date Performed Result Body Sit e 11755-YUUJDQC NAIL, 6 OR MORE 08/26/2024 N/A 29260-RCXHDQE NAIL, 6 OR MORE 01/06/2025 N/A Encounters Encounter Location Date Provider Diagnosis [facility] [address] [address] 05/27/2024 Yifan Clark Ingrowing nail L60.0 ; Skin disease L98.9 ; Tinea unguium B35.1 ; Pain in right toe(s) M79.674 and Pain in left toe(s) M79.675 [facility] [address] 08/26/2024 Margaret Nielsen Pain in right toe(s) M79.674 ; Onychomycosis B35.1 and Pain in left toe(s) M79.675 [facility] [place] [address] [place] [address] 01/06/2025 Margaret Nielsen Pain in right toe(s) M79.674 ; Onychomycosis B35.1 and Pain in left toe(s) M79.675 Assessments Encounter Date Diagnosis (ICD Code) Assessment Notes Treatment Notes Treatment Clinical Notes Section Notes 05/27/2024 Ingrowing nail (ICD-10 - L60.0) 05/27/2024 Skin disease (ICD-10 - L98.9) 08/26/2024 Pain in right toe(s) (ICD-10 - M79.674) 01/06/2025 Pain in right toe(s) (ICD-10 - M79.674) 01/06/2025 Onychomycosis (ICD-10 - B35.1) 08/26/2024 Onychomycosis (ICD-10 - B35.1) 05/27/2024 Tinea unguium (ICD-10 - B35.1) 01/06/2025 Pain in left toe(s) (ICD-10 - M79.675) 08/26/2024 Pain in left toe(s) (ICD-10 - M79.675) 05/27/2024 Pain in right toe(s) (ICD-10 - M79.674) 05/27/2024 Pain in left toe(s) (ICD-10 - M79.675) Plan Of Treatment Pending Test Test Name Order Date [id number] NAIL, 6 OR MORE 08/26/2024 35554-SWHYZWC NAIL, 6 OR MORE 01/06/2025 Next Appt Details Provider Name:Margaret Riddle ana, 05/10/2025 09:15:00 AM, [address] [place], [address], Insurance Providers Payer Name Payer Address Payer Phone Subscriber Number Group Number Insured Name Patient Relationship to Insured Coverage Start Date Coverage End Date [facility] [address] [place] [address] [phone] [id number] 2 Reji Teran Self - patient is the insured Medical (General) History Medical History History ICD Code Anxiety Back,Hip,and Knee pain Broken bones Cancer- slight Lukemia Diabetic Glaucoma Hiatal hernia Measles Mumps Chicken pox Joint implants/screws Surgical History Surgery Date(Month/Year) stricture of uterer 1944 broken leg 1988
== END 2025-02-01 10:40 | disposition home or self-care (01) ==
LOC: HO.HMCC 10:09
PROVIDERS: PCP Nurse Practitioner Family; Visit Provider Nurse Practitioner Family
DX: D47.2 Monoclonal gammopathy (principal); D72.820 Lymphocytosis (symptomatic); M81.0 Age-related osteoporosis without current pathological fracture

== ENCOUNTER → 2025-02-01 10:06 | Outpatient (BNVA) | payer MEDICARE, SELFPAY | PROVIDERS: PCP Nurse Practitioner Family; Visit Provider Nurse Practitioner Family | DX: M81.0 Age-related osteoporosis without current pathological fracture (principal); D47.2 Monoclonal gammopathy; D72.820 Lymphocytosis (symptomatic) | CPT/HCPCS: 96127; 99212 ==

== ENCOUNTER 2025-02-02 06:29 | Outpatient (REF) | payer MEDICARE, SELFPAY ==
[2025-02-02 10:23] LABS: Appearance Urine Cloudy; Color Urine Yellow; Glucose Urine UA Negative (Negative); Leukocyte Esterase Urine Negative (Negative); Nitrite Urine Negative (Negative); PH 7.5 (5.0-9.0); Specific Gravity - Urine 1.015 (1.005-1.025); Urine Blood Negative (Negative); Urine Ketones Negative (Negative); Urine Protein Negative (Neg-Trace)
[2025-02-02 10:33] LABS: Basophils Percent Auto 0.3 % (0-2); Eosinophils Absolute Auto 0.1 X10*3/uL (0.0-0.4); Eosinophils Percent Auto 1.1 % (0-4); Hematocrit 38.4 % (42.0-52.0); Hemoglobin 12.9 g/dl (14.0-18.0); Imm Gran Abs Auto 0.02 X10*3/uL (0.00-0.03); Imm Gran Pct Auto 0.3 % (0.0-0.4); Lymphocytes Absolute Auto 5.1 X10*3/uL (1.2-4.9); Lymphocytes Percent Auto 68.3 % (20-40); MANUAL DIFF FLAG SCAN; Mean Corpuscular HGB Conc 33.6 g/dl (31.0-36.0); Mean Corpuscular Hemoglobin 34.3 pg (27.0-33.0); Mean Corpuscular Volume 102.1 fL (80.0-98.0); Monocytes Absolute Auto 0.5 X10*3/uL (0.1-1.2); Monocytes Percent Auto 6.5 % (2-11); Neutrophils Absolute Auto 1.8 x10*3/uL (2.0-8.3); Neutrophils Percent Auto 23.5 % (45-73); Red Blood Count 3.76 X10*6/uL (4.60-5.80); Red Cell Distribution Width 13.2 % (11.0-16.0); SCAN SMEAR FLAG 1; White Blood Count 7.5 X10*3/uL (4.8-10.8)
[2025-02-02 10:53] LABS: Alanine Aminotransferase 18 U/L (0-40); Albumin Level 4.2 g/dL (3.5-5.0); Anion Gap 12 (12-20); Aspartate Amino Transferase 23 U/L (5-37); Bilirubin Total 0.7 mg/dL (0.0-1.0); Blood Urea Nitrogen 21 mg/dL (9-16); Calcium 9.5 mg/dL (8.4-10.2); Carbon Dioxide 29 mmol/L (22-29); Chloride 104 mmol/L (96-108); Cholesterol 124 mg/dL (<200); Estimated Glomerular Filt Rate > 60; Glucose Fasting 110 mg/dL (60-99); HDL Cholesterol 53 mg/dL (>40); LDL Cholesterol Calculated 55 mg/dL (<100); Lactate Dehydrogenase 220 U/L (118-273); Potassium 4.2 mmol/L (3.3-5.1); Sodium 141 mmol/L (135-145); Total Protein 6.4 g/dL (6.5-8.0); Triglycerides 80 mg/dL (<150)
[2025-02-02 10:56] LABS: Platelet Count 107 X10*3/uL (160-400)
[2025-02-02 10:57] LABS: SLIDE REVIEW VERIFIED
[2025-02-02 11:21] LABS: TSH reflex Free T4 1.88 uIU/mL (0.32-4.0)
[2025-02-02 12:46] LABS: Alkaline Phosphatase 87 U/L (39-117)
[2025-02-04 23:54] LABS: IgA 132 mg/dL (70-320); IgG 659 mg/dL (600-1540); IgM 308 mg/dL (50-300)
[2025-02-07 21:23] LABS: Vitamin D 25-OH, D2 <4 ng/mL; Vitamin D 25-OH, D3 51 ng/mL; Vitamin D 25-OH, Total 51 ng/mL (30-100)
== END 2025-02-02 06:30 | disposition home or self-care (01) ==
LOC: HO.HMGCLDS 06:29
PROVIDERS: PCP Nurse Practitioner Family; Visit Provider Nurse Practitioner Family
DX: D47.2 Monoclonal gammopathy (principal); M81.0 Age-related osteoporosis without current pathological fracture; D72.820 Lymphocytosis (symptomatic); Z13.6 Encounter for screening for cardiovascular disorders
CPT/HCPCS: 36415; 80053; 80061; 81003; 82306; 82784; 83615; 84443; 85025; 86334

== ENCOUNTER 2025-02-03 09:21 | Outpatient (AMB) | payer MEDICARE, SELFPAY ==
--- NOTE | 2025-02-03 09:47 | A.OFFVIS_ITS ---
Intake Visit Reasons: PVR and UA office(set) Intake Note: Patient is present for PVR/UA Urology Medication:METHENAMINE HIPPURATE,TAMSULOSIN,VITAMIN C Antibiotic Allergy:NONE Blood Thinner:NONE Last PVR:33ML'S Todays PVR:0ML'S Daytime Caregiver Required: No Allergies No Known Allergies [No Known Allergies*] Allergy (Verified 02/03/25 09:49) HPI Comments Details: Reji is a very pleasant male. He is a patient of Dr. Spain. Developmental delay. Lives with brother. He is seen for the following urologic conditions. 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 - sensitive to Macrobid Three episodes in last 12 months 2023 Responded well to combination vitamin-C with methenamine Lower urinary tract symptoms Prior bladder neck contracture with incision Current medications tamsulosin Prior medications include bethanechol PVR - 10/13 0, 05/13 0cc, 11/14 0cc, 11/14 0cc 6 month f/u office [facility] Medical History Encounter for routine adult health examination without abnormal findings Glaucoma Hypotonic bladder Osteoporosis Hyperglycemia Nocturia BPH (benign prostatic hyperplasia) Urgency of urination Diabetes mellitus Right inguinal hernia Bladder neck contracture Surgical History H/O urethrotomy Family History Father CVD (cardiovascular disease) Mother No problems noted. Other HTN (hypertension) Social History Household Members: Family Housing: House Are you a primary behavioral health care manager to a significant other at home: No Do you presently have visiting nurse or other home services: No Patient Tobacco Use Status: Never used Tobacco e-Cigarette/Vaping Use: Never Used Second Hand Smoke Exposure: No service: No Current occupational status: retired Cognitive needs: No Hearing needs: No Vision needs: No Review of Systems Const Denies chills and Denies fever(s) Card Reports no additional complaints and Denies syncope Resp Denies cough GI Denies abdominal pain and Denies heartburn Reports as per HPI and Denies change in libido Neuro Denies syncope Psych Denies change in libido Endo Denies change in libido Physical Exam Const General: cooperative, healthy appearing, comfortable and no acute distress Orientation/consciousness: patient oriented x3 HEENT Face and sinus: Yes normal facial exam Mouth: moist mucous membranes Neck Neck: Yes normal visual inspection, Yes full ROM and Yes trachea midline Chest Chest palpation & inspection: normal inspection of the chest Resp Effort & Inspection: normal respiratory effort, able to speak in complete sentences and no respiratory distress GI Inspection: Yes normal to inspection Back/Spine/Pelvis Cervical Spine: normal cervical lordosis Thoracic/Lumbar Spine: thoracic and lumbar spine normal to inspection Skin General skin exam: no rashes or lesions noted Neuro General: patient oriented x3, gait normal, tone normal and moves all extremities Extrem General: Yes normal to inspection and Yes capillary refill normal Office Procedures Post Void Residual Post Residual Void Post Void Residual (PVR): 0 92640-Upqr Void Residual by ultrasound Results AMB Urinalysis, Automated UA Leukoctes 0 Marko/uL Last Edit by VIRIDIANA Brown on 02/03/25 12:18 UA Nitrite Negative Last Edit by VIRIDIANA Brown on 02/03/25 12:18 UA Urobilinogen 3.5 mg/dL Last Edit by VIRIDIANA Brown on 02/03/25 12:1 8 UA Protein 0 mg/dL Last Edit by VIRIDIANA Brown on 02/03/25 12:18 UA pH 6.0 Last Edit by VIRIDIANA Brown on 02/03/25 12:18 UA Blood 0 Garry/uL Last Edit by VIRIDIANA Brown on 02/03/25 12:18 UA Specific [place]on 1.015 Last Edit by VIRIDIANA Brown on 02/03/25 12: 18 UA Ketone Negative Last Edit by VIRIDIANA Brown on 02/03/25 12:18 UA Bilirubin 0 mg/dL Last Edit by VIRIDIANA Brown on 02/03/25 12:18 UA Glucose 0 mg/dL Last Edit by VIRIDIANA Brown on 02/03/25 12:18 Results Reviewed Results Reviewed: Laboratory Last Values Urine pH (Auto) 6.0 02/03/25 12:17 Specific [place] (Auto) 1.015 02/03/25 12:17 Urine Protein (Auto) 0 mg/dL 02/03/25 12:17 Glucose (UA)(Auto) 0 mg/dL 02/03/25 12:17 Urine Ketones (Auto) Negative 02/03/25 12:17 Urine Blood (Auto) 0 Garry/uL 02/03/25 12:17 Urine Nitrite (Auto) Negative 02/03/25 12:17 Urine Bilirubin (Auto) 0 mg/dL 02/03/25 12:17 Urine Urobilinogen (Auto) 3.5 mg/dL 02/03/25 12:17 Leukocyte Esterase (Auto) 0 Marko/uL 02/03/25 12:17 Assessment & Plan Assessment & Plan (1) Hypotonic bladder: Code(s): 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, not elsewhere classified Category: Medical (2) Complicated urinary tract infection: Code(s): N39.0 - Urinary tract infection, site not specified Category: Medical Plan Continue six-month follow-up Continue suppression Orders: Orders AMB Urinalysis Automated Today Z13.9 - Encounter for screening, unspecified Medications: Refilled methenamine hippurate 1 g PO DAILY 90 tabs 1RF 90 days N39.0 - Urinary tract infection, site not specified ascorbic acid (vitamin C) 1 g PO DAILY 90 tabs 1RF 90 days N39.0 - Urinary tract infection, site not specified clotrimazole-betamethasone 1-0.05 % 1 appl topical DAILY PRN 15 grams 1RF dermatitis 30 days B49 - Unspecified mycosis tamsulosin (Flomax) 0.4 mg PO DAILY 90 caps 1RF 90 days N39.0 - Urinary tract infection, site not specified Patient Instructions: This note is constructed using voice recognition software. While every effort has been made to ensure accuracy steam meter reader errors may have been included. Imaging studies, laboratory and physical exam results were discussed and revi ewed in detail. No major barriers to patient understanding were identified. An opportunity to ask questions regarding the treatment plan was provided. All questions were answered. The patient expressed understanding and agreement with the above treatment plan. The patient is aware they should contact our office by phone for worsening of their current condition or the appearance of new urologic symptoms. Compliance is encouraged with any medications and followup testing that is ordered. It is a privilege to participate in the urologic care of your patient. If you have any questions or concerns regarding treatment for the above conditions, or other urologic issues, please do not hesitate to contact me. The office telephone contact is [phone]. Sincerely, Dr Jovi Bell MD, [facility] - Urology Compassionate Specialist Care for the Genitourinary System Coding Level of Care Code Est Pt Level 3 (14269) Complex EM visit Add On G2211 Diagnoses Hypotonic bladder N31.2 Complicated urinary tract infection N39.0 CPT Codes Post Residual Void - PVR CPT Code: 22361-Svie Void Residual by ultrasound ([id number])
--- OUTSIDE RECORDS SUMMARY | 2025-02-03 09:53 | XMS_ITS ---
Author Organization [facility] Address [address] [place] [address] Care Team Providers Care Design Consultant Name Role Phone Modesto Kay Primary Care Provider Unav ailable Margaret Nielsen Unavailable [phone] Allergies No Known Allergies REASON FOR VISIT [...] Ordered Date Performed Result Body Sit e 32792-IJKUGYX NAIL, 6 OR MORE 01/06/2025 N/A Encounters Encounter Location Date Provider Diagnosis [facility] [address] [address] 01/06/2025 Margaret Nielsen Pain in right toe(s) M79.674 ; Onychomycosis B35.1 and Pain in left toe(s) M79.675 Assessments Encounter Date Diagnosis (ICD Code) Assessment Notes Treatment Notes Treatment Clinical Notes Section Notes 01/06/2025 Pain in right toe(s) (ICD-10 - M79.674) 01/06/2025 Onychomycosis (ICD-10 - B35.1) 01/06/2025 Pain in left toe(s) (ICD-10 - M79.675) Plan Of Treatment Pending Test Test Name Order Date 15153-[id number] NAIL, 6 OR MORE 01/06/2025 Next Appt Details Follow Up: prn, Reason: Provider Name:Margaret Phillynarinder ana, 05/10/2025 09:15:00 AM, [address] [place] [address], [address], Procedure Notes * Category Sub-Category Detail Notes [...] use of a nail nipper and/or dremel-type gear grinder, to a more viable healthy nail [...] to maintain effectiveness in symptomatic relief - 89462 Progress Notes * MARINReji GDOB:1940 (84 yo M)Acc No.[id number]:01/06/2025 Progress Note Patient:?Reji TERAN Provider:?Margaret Nielsen DPM :1940???Age:84 Y???Sex:Male Saurav e:01/06/2025 Address:[address] Pcp:SHARMILA Bahena Subjective: * Chief Complaints: * [...] use of a nail nipper and/or dremel-type gear grinder, to a more viable healthy nail [...] to maintain effectiveness in symptomatic relief - 39055.? * Procedure Codes:?89916 DEBRI DE NAIL, 6 OR MORE * Follow Up:?prn * Images: * Sign off status: Completed true * Provider:?Margaret Nielsen DPM Date:?0 01/06/2025 Generated for Pretty balderrama/Alverto/eTransmitting on:?02/03/2025 09:53 AM EDT History and Physical Notes * [...]
--- OUTSIDE RECORDS SUMMARY | 2025-02-03 09:53 | XMS_ITS | Patient Health Record ---
Author Organization [facility] Address [address] [facility] [place] [address] Care Team Providers Care Trash Collector Name Role Phone Modesto Kay Primary Care Provider Unav ailable Margaret Nielsen Unavailable [phone] Yifan Clark Unavailable [phone] Allergies No Known Allergies Reason For Referral Diagnosis 1 Pain in unspecified foot (M79.673) Referring Provider First Name [place] Referring Provider [facility] Referred Provider Yifan Clark Referred Address [address] [facility],[place],[address], Referred Provider Specialty Podiatry Referral Priority Routine Diagnosis 1 Tinea unguium (B35.1 ) Diagnosis 2 Ingrowing nail (L60. 0) Diagnosis 3 Pain in right toe(s) (M79.674) Diagnosis 4 Pain in left toe(s) (M79.675) Diagnosis 5 Skin disease (L98.9) Referring Provider First Name [place]esto Referring Provider Last Name [facility] Referred Provider Margaret Nielsen Referred Address [address] [facility],[place],[address], Referred Provider Specialty Podiatry Referral Priority Routine [...] Ordered Date Performed Result Body Sit e 96809-TBPFPSA NAIL, 6 OR MORE 08/26/2024 N/A 81208-VQKBQLV NAIL, 6 OR MORE 01/06/2025 N/A Encounters Encounter Location Date Provider Diagnosis [facility] [address] [address] 05/27/2024 Yifan Clark Ingrowing nail L60.0 ; Skin disease L98.9 ; Tinea unguium B35.1 ; Pain in right toe(s) M79.674 and Pain in left toe(s) M79.[address] [facility] [address] 08/26/2024 Margaret Nielsen Pain in right toe(s) M79.674 ; Onychomycosis B35.1 and Pain in left toe(s) M79.675 [facility] [place] [address] [place] [address] 01/06/2025 Margaret Nielsen Pain in right toe(s) [...] Treatment Pending Test Test Name Order Date 45321-[id number] NAIL, 6 OR MORE 08/26/2024 54709-JCDEEXG NAIL, 6 OR MORE 01/06/2025 Next Appt Details Provider Name:Margaret Riddle ana, 05/10/2025 09:15:00 AM, [address] [place], [address], Insurance Providers Payer Name Payer Address Payer Phone Subscriber Number Group Number Insured Name Patient Relationship to Insured Coverage Start Date Coverage End Date [facility] [address] [place] [address] [phone] [id number] Reji Teran Self - patient is the insured Medical (General) History Medical History History ICD Code Anxiety Back,Hip,and Knee pain Broken bones Cancer- slight Lukemia Diabetic Glaucoma Hiatal hernia Measles Mumps Chicken pox Joint implants/screws Surgical History Surgery Date(Month/Year) stricture of uterer 1944 broken leg 1988
--- OUTSIDE RECORDS SUMMARY | 2025-02-03 09:53 | XMS_ITS ---
Author Organization [facility] Address [address] [place] [address] Care Team Providers Care Aircraft Hydraulic Equipment Mechanic Name Role Phone Modesto Kay Primary Care Provider Unav ailable Margaret Nielsen Unavailable [phone] Yifan Clark Unavailable [phone] Allergies No Known Allergies REASON FOR VISIT [...] 05/27/2024 Encounters Encounter Location Date Provider Diagnosis [facility] [address] [place] [address] 05/27/2024 iYfan Clark Ingrowing nail L60.0 ; Skin disease [...] Provider Name:Margaret perez, 05/10/2025 09:15:00 AM, [address] [place], [address], Procedure Notes * Category Sub-Category Detail Notes [...] as necessary. Patient chooses, no pharmaceutical tx (94476) Progress Notes * Reji TERAN GDOB:1940 (83 yo M)Acc No.[id number]:05/27/2024 Progress Notes Patient:?Reji Teran Provider:?Yifan Clark DPM :1940???Age:83 Y???Sex:Male Saurav e:05/27/2024 Address:[address] Pcp:Modesto Hwang NP-RUBIA Subjective: * Chief Complaints: [...] as necessary. Patient chooses, no pharmaceutical tx (04662).? * Procedure Codes:?34596 DEBRI DE NAIL, 6 OR MORE, Modifiers: [...] DPM Date:? 024 Generated for Pretty balderrama/Alverto/Stephanie on:?02/03/2025 09:53 AM EDT History and Physical [...] no acute distress ORIENTED: person,place, and ti pr Ophthalmology Referral DIABETES EYE EXAM Diabetic Retinopa [...]
--- OUTSIDE RECORDS SUMMARY | 2025-02-03 09:53 | XMS_ITS ---
Author Organization [facility] Address [address] [place] [address] Care Team Providers Care Shingle Grader Name Role Phone Modesto Kay Primary Care Provider Unav ailable Margaret Nielsen Unavailable [phone] Allergies No Known Allergies REASON FOR VISIT [...] Ordered Date Performed Result Body Sit e 55814-UHNNQKY NAIL, 6 OR MORE 08/26/2024 N/A Encounters Encounter Location Date Provider Diagnosis [facility] [address] [address] 08/26/2024 Margaret Nielsen Pain in right toe(s) M79.674 ; Onychomycosis B35.1 and Pain in left toe(s) M79.675 Assessments Encounter Date Diagnosis (ICD Code) Assessment Notes Treatment Notes Treatment Clinical Notes Section Notes 08/26/2024 Pain in right toe(s) (ICD-10 - M79.674) 08/26/2024 Onychomycosis (ICD-10 - B35.1) 08/26/2024 Pain in left toe(s) (ICD-10 - M79.675) Plan Of Treatment Pending Test Test Name Order Date 29426-TTTAFAN NAIL, 6 OR MORE 08/26/2024 Next Appt Details Follow Up: prn, Reason: Provider Name:Margaret perez, 05/10/2025 09:15:00 AM, [address] [place] [address], [address], Procedure Notes * Category Sub-Category Detail Notes [...] use of a nail nipper and/or dremel-type shot grinder operator, to a more viable healthy nail plate [...] to maintain effectiveness in symptomatic relief - 66253 Progress Notes * Reji TERAN GDOB:1940 (83 yo M)Acc No.[id number]:08/26/2024 Progress Note Patient:?Reji TERAN Provider:?Margaret Nielsen DPM :1940???Age:83 Y???Sex:Male Saurav e:08/26/2024 Address:[place] [address] Pcp:SHARMILA Bahena Subjective: * Chief Complaints: * [...] use of a nail nipper and/or dremel-type shot grinder operator, to a more viable healthy nail plate [...] to maintain effectiveness in symptomatic relief - 46597.? * Procedure Codes:?98572 DEBRI DE NAIL, 6 OR MORE * Follow Up:?prn * Images: * Sign off status: Completed true * Provider:?Margaret Nielsen DPM Date:?1 10/27/2023 Generated for Pretty balderrama/Alverto/eTdebbiesmkirill on:?02/03/2025 09:53 AM EDT History and Physical [...]
== END 2025-02-03 10:22 | disposition home or self-care (01) ==
LOC: HO.HUSH 09:22
PROVIDERS: PCP Nurse Practitioner Family; Visit Provider Urology
DX: N31.2 Flaccid neuropathic bladder, not elsewhere classified (principal); N39.0 Urinary tract infection, site not specified; Z13.9 Encounter for screening, unspecified
CPT/HCPCS: 99213; G2211

== ENCOUNTER → 2025-02-03 09:21 | Outpatient (BNVA) | payer MEDICARE, SELFPAY | PROVIDERS: PCP Nurse Practitioner Family; Visit Provider Urology | DX: N31.2 Flaccid neuropathic bladder, not elsewhere classified (principal); N39.0 Urinary tract infection, site not specified; B49 Unspecified mycosis | CPT/HCPCS: 51798; 81003; 99212 ==

== ENCOUNTER 2025-03-18 13:45 | Outpatient (REF) | payer BC, SELFPAY ==
--- NOTE | ~2025-03-18 | MM_ITS ---
EXAMINATION: DXA BONE DENSITY AXIAL HISTORY: M81.0 - Age-related osteoporosis without current pathological fracture TECHNIQUE: TwinStrata Dual energy absorptiometry (DEXA) of the lumbar spine, total left hip, and femoral neck was performed. COMPARISON: Comparison is made with the prior examination dated 02/05/2012. FINDINGS: The bone mineral density of the lumbar spine is 0.913, corresponding to a T-score of -2.6, and a Z-score of -1.6. This is indicative of osteoporosis. This represents a BMD change of -6.7% compared to the prior exam. This is statistically significant. The bone mineral density of the left total hip is 0.736, corresponding to a T-score of -2.5, and a Z-score of -1.0. This is indicative of osteoporosis. This represents a BMD change of -14.0% compared to the prior exam. This is statistically significant. The bone mineral density of the left femoral neck is 0.757, corresponding to a T-score of -2.4, and a Z-score of -0.6. This is indicative of osteopenia. This represents a BMD change of -15.6% compared to the prior exam. FRACTURE RISK: The FRAX index suggests a ten year probability of major osteoporotic fracture of 13.1%, and of hip fracture 5.5%. MM/XR DEXA axial skeleton IMPRESSION: Based on bone mineral density, and according to World Health Organization (WHO) criteria, the diagnosis is consistent with osteoporosis. All bone density values are in grams per centimeter squared (g/cm2). Statistically, 68% of repeat scans fall within 1 SD (+/- 0.010 g/cm2 for AP spine L1-L4) and 1 SD (+/- 0.012 g/cm2 for femur total) FRAX is a trademark of the [employer] [facility] Met[employer], a World Health Organization (WHO) Collaborating Center. Electronically signed by: Ramni Cooper MD 03/18/2025 02:39 PM EDT
--- OUTSIDE RECORDS SUMMARY | 2025-03-18 16:36 | XMS_ITS | Patient Health Record ---
Author Organization [facility] Address [address] [place] [address] Care Team Providers Care Heel Gouger Name Role Phone Korey Mena M.D. Primary Care Provider Anna magdajens Ramin Garcia Unavailable [phone] Reason For Referral No Information Medications Medication SIG (Take, Route, Frequency, Duration) Notes Start Date End Date Status clonazePAM Active Bethanechol Chloride Active Multivitamins Active Citracal + D Active Colyte w Flavor Packs 240 GM as directed Orally as directed for 1 day(s) 10/23/2015 Active Flomax Active Fosamax Active Clotrimazole-Betamethasone Active Lotrimin AF Active Stool Softener Activ e Triamcinolone Acetonide Active Problems Problem Type SNOMED Code ICD Code Onset Dates Problem Status W/U Status Risk Notes Problem 372466449 Encounter for screening for malignant neoplasm of colon (Z12.11) Active confirmed Problem Screening for malignant neoplasm of rectum (893309650) Encounter for screening for malignant neoplasm of rectum (Z12.12) Active confirmed Problem 44462579 Constipation, unspecified constipation type (K59.00) Active confirmed Problem 084001424 Hx of adenomatou s colonic polyps (Z86.010) Active confirmed Plan Of Treatment Future Test Test Name Order Date COLONOSCOPY 10/20/2015 Insurance Providers Payer Name Payer Address Payer Phone Subscriber Number Group Number Insured Name Patient Relationship to Insured Coverage Start Date Coverage End Date [facility] [employer] [address] [place] [address] [id number] ARABELLA FUNES Self - patient is the insured Medical (General) History Medical History History ICD Code screening colonoscopy 06-13-2007--1 small tubular adenoma removed Denies IA,DM,CVA,Lung disease,renal dise ase osteoporosis Kyphosis Anxiety/tremor Urinary retention Surgical History Surgery Date(Month/Year) Surgery for a broken leg. Surgery for a ureteral stric ture at age 4 ( He had neurologic probelms after the general anesthesia) Laser prostate surgry--transurethral
== END 2025-03-18 13:46 | disposition home or self-care (01) ==
LOC: HO.MAMMO 13:45
PROVIDERS: PCP Nurse Practitioner Family; Visit Provider Nurse Practitioner Family
DX: M81.0 Age-related osteoporosis without current pathological fracture (principal)
CPT/HCPCS: 77080

== ENCOUNTER → 2025-03-18 14:00 | Outpatient (BNV) | payer BC, SELFPAY | PROVIDERS: PCP Nurse Practitioner Family; Visit Provider Radiology Diagnostic Radiology | DX: M81.0 Age-related osteoporosis without current pathological fracture (principal) | CPT/HCPCS: 77080 ==

== ENCOUNTER 2025-07-08 14:28 | Outpatient (AMB) | payer BC, SELFPAY ==
--- NOTE | 2025-07-08 15:03 | MHC.OFFVIS ---
Intake Visit Reasons: 6mnth Allergies No Known Allergies (No Known Allergies*) Allergy (Verified 02/03/25 09:49) HPI Comments Details: 84 years old man with chronic static encephalopathy, related dementia, and anxiety and tremor. He was doing okay with no new symptoms. Tremor was relatively control. He was here with the sister. No complain of dizziness or passing out. [facility] Medical History Encounter for routine adult health examination without abnormal findings Glaucoma Hypotonic bladder Osteoporosis Hyperglycemia Nocturia BPH (benign prostatic hyperplasia) Urgency of urination Diabetes mellitus Right inguinal hernia Bladder neck contracture Surgical History H/O urethrotomy Family History Father CVD (cardiovascular disease) Mother No problems noted. Other HTN (hypertension) Social History Household Members: Family Housing: House Are you a primary healthcare sales representative to a significant other at home: No Do you presently have visiting nurse or other home services: No Patient Tobacco Use Status: Never used Tobacco e-Cigarette/Vaping Use: Never Used Second Hand Smoke Exposure: No service: No Current occupational status: retired Cognitive needs: No Hearing needs: No Vision needs: No Review of Systems Const Details: Constitutional:?No fever, chills, fatigue, weight loss, or night sweats. HEENT:?No headache, vision changes, hearing loss, nasal congestion, sore throat. Neurological:? No significant tremor Endocrine:?No heat/cold intolerance, polydipsia, polyuria, or hair/skin changes. Hematologic/Lymphatic:?No easy bruising, bleeding, or lymphadenopathy. Integumentary (Skin):?No rash, lesions, itching, or color changes. ? Assessment & Plan Assessment & Plan (1) Tremor: Comment: CT brain WO at [facility] in 2005: mild diff atrophy (reported) MRI brain WO at [facility] in Jul 2015: mod cortical atrophy and mild MVD Code(s): R25.1 - Tremor, unspecified Category: Medical (2) Chronic static encephalopathy: Code(s): G93.49 - Other encephalopathy Category: Medical Plan Impression: Benign essential tremor with anxiety Rec; Clonazpam 0.5mg tid Medications: New clonazepam 0.5 mg PO TID 270 tabs 1RF Coding Level of Care Code Est Pt Level 4 (88464) Diagnoses Tremor R25.1 Chronic static encephalopathy G93.49
--- OUTSIDE RECORDS SUMMARY | 2025-07-08 18:20 | XMS_ITS | Patient Health Record ---
Author Organization [facility] Address [address] [place] [address] Care Team Providers Care Apron Cleaner Name Role Phone Korey Mena M.D. Primary Care Provider Anna magdajens Ramin Garcia Unavailable [phone] Reason For Referral No Information Medications Medication SIG (Take, Route, Frequency, Duration) Notes Start Date End Date Status clonazePAM Active Bethanechol Chloride Active Multivitamins Active Citracal + D Active Colyte w Flavor Packs 240 GM as directed Orally as directed; Duration: 1 day(s) 10/23/2015 Active Flomax Active Fosamax Active Clotrimazole-Betamethasone Active Lotrimin AF Active Stool Softener Activ e Triamcinolone Acetonide Active Problems Problem Type SNOMED Code ICD Code Onset Dates Problem Status W/U Status Risk Notes Problem Screening for malignant neoplasm of colon (186139436) Encounter for screening for malignant neoplasm of colon (Z12.11) Active confirmed Problem Screening for malignant neoplasm of rectum (468132491) Encounter for screening for malignant neoplasm of rectum (Z12.12) Active confirmed Problem Constipation (20843247) Constipation, unspecified constipation type (K59.00) Active confirmed Problem History of adenomatous polyp of colon (894266611) Hx of adenomatous colonic polyps (Z86.010) Active confirmed Plan Of Treatment Future Test Test Name Order Date COLONOSCOPY 10/20/2015 Insurance Providers Payer Name Payer Address Payer Phone Subscriber Number Group Number Insured Name Patient Relationship to Insured Coverage Start Date Coverage End Date O [employer] PROF[employer]AL CLAIMS [address] [place] [address] [id number] ARABELLA FUNES Self - patient is the insured Medical (General) History Medical History History ICD Code screening colonoscopy 06-13-2007--1 small tubular adenoma removed Denies [place],DM,CVA,Lung disease,renal dise ase osteoporosis Kyphosis Anxiety/tremor Urinary retention Surgical History Surgery Date(Month/Year) Surgery for a broken leg. Surgery for a ureteral stric ture at age 4 ( He had neurologic probelms after the general anesthesia) Laser prostate surgry--transurethral
--- OUTSIDE RECORDS SUMMARY | 2025-07-08 18:20 | XMS_ITS | Patient Health Record ---
Author Organization [facility] Address [address] [place] [address] Care Team Providers Care Child Neurologist Name Role Phone Modesto Kay Primary Care Provider Unav ailable Margaret Nielsen Unavailable [phone] Allergies No Known Allergies Results Component Value Reference Range Notes HEMOGLOBIN A1C (GLYCOHEMOGLO BIN) Reviewed date:05/10/2025 09:22:54 AM Interpretation: Performing Lab: Notes/Report: HEMOGLOBIN A1C % (HH) 5.6 Reason For Referral Diagnosis 1 Tinea unguium (B35.1 ) Diagnosis 2 Ingrowing nail (L60. 0) Diagnosis 3 Pain in right toe(s) (M79.674) Diagnosis 4 Pain in left toe(s) (M79.675) Diagnosis 5 Skin disease (L98.9) Referring Provider First Name Modesto Referring Provider Last Name Jaiden [facility]erred Provider Margaret Nielsen Referred Address [address],[place], [place],[address], Referred Provider Specialty Podiatry Referral Priority Routine Medications Medication SIG (Take, Route, Frequency, Duration) Notes Start Date End Date Status Latanoprost 0.005 % INSTILL 1 DROP INTO EACH EYE IN THE EVENING Ophthalmic; Duration: 23 Days Active Docusate Sodium 100 MG 1 capsule as need ed Orally Once a day; Duration: 30 day(s) 05/07/2024 Active clonazePAM 0.5 MG Oral; Duration: 90 Days Active MiraLax 05/07/2024 Active Calcium + D 05/07/2024 Active Methenamine Hippurate 1 GM Oral; Duration: 90 Days Active Systane 0.4-0.3 % as directed Ophthalmic Active Clotrimazole-Betamethasone 1-0.05 % External; Duration: 30 Days Active Timolol Maleate 0.5 % INSTILL 1 DROP INT O EACH EYE IN THE MORNING Ophthalmic; Duration: 37 Days Active Multi Vitamin - 1 tablet Orally Once a day; Duration: 30 day(s) 05/07/2024 Active Vitamin C 1000 MG 1 tablet Orally Once a day; Duration: 30 day(s) 05/07/2024 Active Immunizations Vaccine Route Administration Date Status Comme nts Influenza Unknown 05/24/2023 Administered Influenza Unknown 06/23/2024 Administered Social History Tobacco Use: Social History [...] Interpretation Negative Vital Signs Blood pressure diastolic 65 mm Hg 05/10/2025 Height 5 ft 9 in in 05/10/2025 Blood pressure systolic 130 mm Hg 05/10/2025 Weight 155 lbs 05/10/2025 BMI 22.89 kg/m2 05/10/2025 Procedures Procedure Date Ordered Date Performed Result Body Sit e 66200-NPQZGIS NAIL, 6 OR MORE 08/26/2024 N/A 25275-QZDLYSQ NAIL, 6 OR MORE 01/06/2025 N/A 52440-QQLYEIW NAIL, 6 OR MORE 05/10/2025 N/A Encounters Encounter Location Date Provider Diagnosis [facility] [address] [address] 08/26/2024 Margaret Nielsen Pain in right toe(s) M79.674 ; Onychomycosis B35.1 and Pain in left toe(s) M79.[address] [facility] [address] 01/06/2025 Margaret Nielsen Pain in right toe(s) M79.674 ; Onychomycosis B35.1 and Pain in left toe(s) M79.675 [facility] [place] [address] [place] [address] 05/10/2025 Margaret Nielsen Pain in right toe(s) M79.674 ; Onychomycosis B35.1 and Pain in left toe(s) M79.675 Assessments Encounter Date Diagnosis (ICD Code) Assessment Notes Treatment Notes Treatment Clinical Notes Section Notes 08/26/2024 Pain in right toe(s) (ICD-10 - M79.674) 01/06/2025 Pain in right toe(s) (ICD-10 - M79.674) 05/10/2025 Pain in right toe(s) (ICD-10 - M79.674) 05/10/2025 Onychomycosis (ICD-10 - B35.1) 01/06/2025 Onychomycosis (ICD-10 - B35.1) 08/26/2024 Onychomycosis (ICD-10 - B35.1) 01/06/2025 Pain in left toe(s) (ICD-10 - M79.675) 05/10/2025 Pain in left toe(s) (ICD-10 - M79.675) 08/26/2024 Pain in left toe(s) (ICD-10 - M79.675) Plan Of Treatment Pending Test Test Name Order Date 31755-[id number] NAIL, 6 OR MORE 08/26/2024 24820-DGRVWNM NAIL, 6 OR MORE 01/06/2025 70514-IREQCDC NAIL, 6 OR MORE 05/10/2025 Next Appt Details Provider Name:Margaret perez, 08/05/2025 09:30:00 AM, [address] [place], [address], Insurance Providers Payer Name Payer Address Payer Phone Subscriber Number Group Number Insured Name Patient Relationship to Insured Coverage Start Date Coverage End Date [facility] All Others [address] [place] [address] [id number] Reji Teran Self - patient is the insured Medical (General) History Medical History History ICD Code Anxiety Back,Hip,and Knee pain Broken bones Cancer- slight Lukemia Diabetic Glaucoma Hiatal hernia Measles Mumps Chicken pox Joint implants/screws Surgical History Surgery Date(Month/Year) stricture of uterer 1944 broken leg 1988
== END 2025-07-08 15:09 | disposition home or self-care (01) ==
LOC: HO.HSM 14:29
PROVIDERS: PCP Nurse Practitioner Family; Referring Provider Nurse Practitioner Family; Visit Provider Psychiatry & Neurology Neurology
DX: R25.1 Tremor, unspecified (principal); G93.49 Other encephalopathy
CPT/HCPCS: 99214

== ENCOUNTER 2025-08-04 08:04 | Outpatient (AMB) | payer MEDICARE, SELFPAY ==
--- OUTSIDE RECORDS SUMMARY | 2025-08-04 08:07 | XMS_ITS | Patient Health Record ---
Author Organization [facility] Address [address] [place] [address] Care Team Providers Care Assistant Financial Accountant Name Role Phone Korey Mena M.D. Primary Care Provider Anna magdajens Ramin Garcia Unavailable [phone] Reason For Referral No Information Medications Medication [...] Problem Screening for malignant neoplasm of colon (182150818) Encounter for screening for malignant neoplasm of colon (Z12.11) Active confirmed Problem Screening for malignant neoplasm of rectum (397016807) Encounter for screening for malignant neoplasm of rectum (Z12.12) Active confirmed Problem Constipation (94015322) Constipation, unspecified constipation type (K59.00) Active confirmed Problem History of adenomatous polyp of colon (951004568) Hx of adenomatous colonic polyps (Z86.010) Active confirmed Plan Of Treatment Future Test Test Name Order Date COLONOSCOPY 10/20/2015 Insurance Providers Payer Name Payer Address Payer Phone Subscriber Number Group Number Insured Name Patient Relationship to Insured Coverage Start Date Coverage End Date O [employer]UE [employer] PROFESSIONAL CLAIMS [address] [place] [address] [id number] ARABELLA FUNES Self - patient is the insured Medical (General) History Medical History History ICD Code screening colonoscopy 06-13-2007--1 small tubular adenoma removed Denies [place],DM,CVA,Lung disease,renal dise ase osteoporosis Kyphosis Anxiety/tremor Urinary retention Surgical History Surgery Date(Month/Year) Surgery for a broken leg. Surgery for a ureteral stric ture at age 4 ( He had neurologic probelms after the general anesthesia) Laser prostate surgry--transurethral
--- OUTSIDE RECORDS SUMMARY | 2025-08-04 08:07 | XMS_ITS | Patient Health Record ---
Author Organization [facility] [place] Address [address] [place] [address] Care Team Providers Care Religious Assistant Name Role Phone Modesto Kay Primary Care Provider Unav ailable Margaret Nielsen Unavailable [phone] Allergies No Known Allergies Results Component Value [...] Modesto Referring Provider Last Name Jaiden [facility] [place] Referred Provider Margaret Nielsen Referred Address [address],[place],[address], Referred Provider Specialty Podiatry Referral Priority Routine [...] Ordered Date Performed Result Body Sit e 35767-AMWKWMC NAIL, 6 OR MORE 08/26/2024 N/A 95434-MEQXRCQ NAIL, 6 OR MORE 01/06/2025 N/A 29162-[id number] NAIL, 6 OR MORE 05/10/2025 N/A Encounters Encounter Location Date Provider Diagnosis [facility] [address] [address] 08/26/2024 Margaret Nielsen Pain in right toe(s) M79.674 ; Onychomycosis B35.1 and Pain in left toe(s) M79.[address] [facility] [address] 01/06/2025 Margaret Nielsen Pain in right toe(s) M79.674 ; Onychomycosis B35.1 and Pain in left toe(s) M79.675 [facility] [place] [address] [place] [address] 05/10/2025 Margaret Nielsen Pain in right toe(s) [...] Treatment Pending Test Test Name Order Date [id number]-[id number] NAIL, 6 OR MORE 08/26/2024 88788-XEISESS NAIL, 6 OR MORE 01/06/2025 04035-[id number] NAIL, 6 OR MORE 05/10/2025 Next Appt Details Provider Name:Margaret perez, 08/05/2025 09:30:00 AM, [address] [place], [address], Insurance Providers Payer Name Payer Address Payer Phone Subscriber Number Group Number Insured Name Patient Relationship to Insured Coverage Start Date Coverage End Date [facility] All Others [address] [place] [address] [id number] Reji Teran Self - patient is the insured Medical (General) History Medical History History ICD Code Anxiety Back,Hip,and Knee pain Broken bones Cancer- slight Lukemia Diabetic Glaucoma Hiatal hernia Measles Mumps Chicken pox Joint implants/screws Surgical History Surgery Date(Month/Year) stricture of uterer 1944 broken leg 1988
--- NOTE | 2025-08-04 08:10 | A.OFFPC_ITS ---
Vital Signs 08/04/25 08:11 Height 5 ft 9 in Weight 153 lb BMI 22.6 BP 100/58 L Blood Pressure Location Lt brachial Position Sitting Respiration 16 Pulse 78 Pulse Source Pulse Oximeter Pulse Oximetry (%) 78 L Intake Visit Reasons: Annual PE Solutions Analyst Required: No Allergies No Known Allergies (No Known Allergies*) Allergy (Verified 08/04/25 08:55) Medication List - Last Reconciled 08/04/25 by AMARILIS SpencerP- ascorbic acid (vitamin C) 1 g PO DAILY 90 days [calcium citrate-vitamin D3 2 tabs PO DAILY] clonazepam 0.5 mg PO TID clotrimazole-betamethasone 1-0.05 % 1 appl topical DAILY PRN 30 days [docusate sodium 100 mg PO DAILY] latanoprost 0.005% 1 drp ophthalmic (eye) BEDTIME methenamine hippurate 1 g PO DAILY 90 days [multivitamin 1 tab PO DAILY] polyethylene glycol 3350 (ClearLax) 17 grams PO DAILY propylene glycol 0.6% (Systane Complete) 1 drp ophthalmic (eye) BID PRN tamsulosin (Flomax) 0.4 mg PO DAILY 90 days timolol maleate 0.5% 0.5 drps ophthalmic (eye) DAILY Tobacco use date assessed: 08/04/25 Fall risk assessment: No Falls in past year Last assessed Fall Risk: 08/04/25 Dental Screening Dental Screen Date: 02/01/25 [facility] Annual PE HPI Details History of Present Illness The patient is an 84-year-old male presenting for a follow-up physical exam. The patient has a history of diabetes, with a recent A1c of 5.8. He has a known large right inguinal hernia, which is asymptomatic. He has been evaluated by a surgeon in the past who determined that he was not a surgical candidate. The patient receives ongoing care from a audio video tech. He previously saw a electrical control assembler but is no longer under their care. He has a history of glaucoma, for which he is on medication, and receives regular eye exams from an plunket nurse/retinal specialist. He sees a audio video tech on a regular basis. Health Maintenance The patient presented for a follow-up physical exam. He will continue with routine follow-up with his audio video tech and plunket nurse. Social History - The patient was accompanied to the [facility] it by his brother. Review of Systems - Cardiovascular: Denies chest pain. - Respiratory: Denies shortness of breat h. - Gastrointestinal: Denies blood in stoo l. - Genitourinary: Denies urinary issues. - Psychiatric: Denies suicidal or homici brittnee ideation. Physical Exam General: Cooperative, healthy appearing, comfortable, no acute distress and well developed, kyphosis noted Orientation: Patient oriented x3 Limitations: No limitations Head: Normal to inspection Ears: Hearing grossly normal bilaterally Nose: Normal external nose present Face and sinus: Normal facial exam Eyes: Scleras blood shot, left greater than right. Neck: Normal visual inspection and Yes full ROM Respiratory: Normal respiratory effort and able to speak in complete sentences. Clear to auscultation bilaterally Cardiovascular: Regular rate and rhythm. Normal S1 and S2 GI: Normal to inspection. Soft to palpation and nontender : Large right inguinal hernia noted Skin: No rashes or lesions noted Neuro: Patient oriented x3 Extremities: Normal to inspection. feet were intact bilat, + sensation with use of monofilament, mostly to dorsal aspect, plantar aspect with lack of sensation noted. onychomycosis noted bilat. + 1 pitting to RLE, trace to LLE Results - Labs: A1c is 5.8. Plan Patient was informed and verbally consented to the use of an ambient scribe for clinic note documentation during this visit. 1. Diabetes Mellitus The patient's diabetes is well-controlled, as indicated by a recent A1c of 5.8. Continue current management. 2. Right Inguinal Hernia The patient has a large right inguinal hernia that is asymptomatic. He was previously deemed not a surgical candidate. Plan is to continue observation. 3. Glaucoma The patient is on medication for glaucoma and is followed by an plunket nurse. An attempt will be made to obtain his most recent ophthalmology note for review. Discussion Notes I reviewed the patient's current health during his physical exam follow-up. We noted his diabetes is well-controlled with a recent A1c of 5.8. His asymptomatic right inguinal hernia will continue to be monitored, especially as he was previously deemed not a surgical candidate and it does not bother him. Given the finding of bloodshot sclerae and his history of glaucoma, I will obtain his most recent records from his retinal specialist for further review. Patient Instructions - Your diabetes is very well controlled, so please continue your current management. - The hernia on your right side does not require surgery at this time because it is not causing you any problems. - Continue to see your eye doctor for yo ur glaucoma and take your prescribed medication. - Continue your regular visits with your foot doctor (audio video tech). [facility] Medical History Encounter for routine adult health examination without abnormal findings Glaucoma Hypotonic bladder Osteoporosis Hyperglycemia Nocturia BPH (benign prostatic hyperplasia) Urgency of urination Diabetes mellitus Right inguinal hernia Bladder neck contracture Surgical History H/O urethrotomy Family History Father CVD (cardiovascular disease) Mother No problems noted. Other HTN (hypertension) Social History Household Members: Family Housing: House Are you a primary healthcare liaison to a significant other at home: No Do you presently have visiting nurse or other home services: No Patient Tobacco Use Status: Never used Tobacco e-Cigarette/Vaping Use: Never Used Second Hand Smoke Exposure: No service: No Current occupational status: retired Cognitive needs: No Hearing needs: No Vision needs: No Questionnaire PHQ-9 Over the last 2 weeks, how often have you been bothered by any of the following problems? 1. Little interest or pleasure in doing things: not at all 2. Feeling down, depressed, or hopeless: not at all 3. Trouble falling or staying asleep, or sleeping too much: not at all 4. Feeling tired or having little energy: not at all 5. Poor appetite or overeating: not at all 6. Feeling bad about yourself - or that you are a failure or have let yourself or your family down: not at all 7. Trouble concentrating on things, such as reading the newspaper or watching television: not at all 8. Moving or speaking so slowly that other people could have noticed. Or the opposite - being so fidgety or restless that you have been moving around a lot more than usual: not at all 9. Thoughts that you would be better off or of hurting yourself in some way: not at all Total score: 0 Depression Screening Interpretation: Negative Depression Screening Done: Yes 44997 - PHQ-9 Billing: Patient declined-do not bill Source: Developed by Drs. Ramin Jameson, Samir Goldberg and colleagues, with an educational lynne from [employer]. Thrive Questionnaire Date Thrive assessed: 01/25/25 I am a: Patient What is your living situation today?: I have a steady place to live Within the past 12 months, did the food you bought not last and you didn't have the money to get more?: Never true Within the past 12 months, did you worry whether your food would run out before you got money to buy more?: Never true Do you have trouble paying for medicines?: No Do you have trouble getting transportation to medical appointments?: No Do you have trouble paying your heating and electricity bill?: No Do you have trouble taking care of your child, family member or friend?: No Do you have trouble with day-to-day activities such as bathing, preparing meals, shopping, managing finances, etc.?: No Are you currently unemployed and looking for a job?: No Are you interested in more education?: No Please select the resources that you would like help with: None Currently or been in a relationship where the following occur: No concerns reported THRIVE Score: 0 LUCILA-7 AMB Questionnaire LUCILA-7 Date LUCILA - 7 assessed: 08/04/25 Feeling nervous, anxious, or on edge: 0 = Not at all Not being able to stop or control worryin = Not at all Worrying too much about different things: 0 = Not at all Trouble relaxin = Not at all Being so restless that it is hard to sit still: 0 = Not at all Becoming easily annoyed or irritable: 0 = Not at all Feeling afraid as if something awful might happen: 0 = Not at all Total LUCILA-7 score (0-4 normal; 5-9 mild; 10-14 moderate; 15-21 severe): 0 Source: Developed by Drs. Ramin Jameson, Samir Goldberg and colleagues, with an educational lynne from [employer]. Physical exam (Primary Care) Vital Signs: Last Vital Signs Pulse 78 08/04/25 08:11 Resp 16 08/04/25 08:11 BP 100/58 L 08/04/25 08:11 Pulse Ox 78 L 08/04/25 08:11 BMI result Body Mass Index 22.6 Tobacco/Smoking Status: Tobacco use Status Tobacco use date assessed 08/04/25 08/04/25 08:13 Patient Tobacco Use Status Never used Tobacco 08/04/25 08:13 e-Cigarette/Vaping Use Never Used 08/04/25 08:13 PHQ-9: PHQ-9 Score PHQ-9: Total score 0 08/04/25 08:21 Depression Screening Interpretation: Negative Thrive Assessment: Date of Thrive Assessment Date Thrive assessed 01/25/25 08/04/25 08:13 Currently or been in a relationship where the following occur: No concerns reported Results AMB Hemoglobin A1c AMB Hemoglobin A1c 5.8 % Last Edit by Mini Li MA on 08/04/25 08:27 Coding Level of Care Code Est Pt Level 3 (80444) Est Pt Prev Care >65y(98489) Diagnoses Overgrown toenails L60.2 Encounter for routine adult health examination without abnormal findings Z00.00 Diabetes mellitus E11.9 Assessment & Plan Assessment & Plan (1) Overgrown toenails: Code(s): L60.2 - Onychogryphosis Category: Medical (2) Encounter for routine adult health examination without abnormal findings: Code(s): Z00.00 - Encounter for general adult medical examination without abnormal findings Category: Medical (3) Diabetes mellitus: Code(s): E11.9 - Type 2 diabetes mellitus without complications Category: Medical Plan . Orders: Orders Comprehensive [place]. Panel Fast Today E11.9 - Type 2 diabetes mellitus without complications, Z00.00 - Encounter for general adult medical examination without abnormal findings Lipid Panel Today E11.9 - Type 2 diabetes mellitus without complications, Z00.00 - Encounter for general adult medical examination without abnormal findings Microalbumin, Random (w Creat) Today E11.9 - Type 2 diabetes mellitus without complications, Z00.00 - Encounter for general adult medical examination without abnormal findings AMB Hemoglobin A1c Today E11.9 - Type 2 diabetes mellitus without complications Complete Blood Count Auto Diff Today E11.9 - Type 2 diabetes mellitus without complications, Z00.00 - Encounter for general adult medical examination without abnormal findings TSH reflex Free T4 Today E11.9 - Type 2 diabetes mellitus without complications, Z00.00 - Encounter for general adult medical examination without abnormal findings UA CC w/rflx Micro + Cult Today E11.9 - Type 2 diabetes mellitus without complications, Z00.00 - Encounter for general adult medical examination without abnormal findings Prostate Specific Antigen Scr Today Z12.5 - Encounter for screening for malignant neoplasm of prostate
[2025-08-04 08:11] VITALS: BP 100/58; PULSE 78; RESP 16; O2SAT 78; BMI 22.6
== END 2025-08-04 08:49 | disposition home or self-care (01) ==
LOC: HO.HMCC 08:05
PROVIDERS: PCP Nurse Practitioner Family; Visit Provider Nurse Practitioner Family
DX: Z00.00 Encounter for general adult medical examination without abnormal findings (principal); L60.2 Onychogryphosis; E11.9 Type 2 diabetes mellitus without complications

== ENCOUNTER → 2025-08-04 08:04 | Outpatient (BNVA) | payer MEDICARE, SELFPAY | PROVIDERS: PCP Nurse Practitioner Family; Visit Provider Nurse Practitioner Family | DX: Z00.00 Encounter for general adult medical examination without abnormal findings (principal); E11.9 Type 2 diabetes mellitus without complications; L60.2 Onychogryphosis; K40.90 Unilateral inguinal hernia, without obstruction or gangrene, not specified as recurrent; Z12.5 Encounter for screening for malignant neoplasm of prostate; Z13.31 Encounter for screening for depression; Z13.39 Encounter for screening examination for other mental health and behavioral disorders | CPT/HCPCS: 83036; 96127; 99397 ==

== ENCOUNTER 2025-08-06 06:59 | Outpatient (REF) | payer MEDICARE, SELFPAY ==
--- OUTSIDE RECORDS SUMMARY | 2025-08-05 04:30 | XMS_ITS ---
Author Organization [facility] Address [address] [place] [address] Care Team Providers Care Bottle House Cleaners Supervisor Name Role Phone Modesto Kay Primary Care Provider Unav ailable Margaret Nielsen Unavailable [phone] Allergies No Known Allergies REASON FOR VISIT Painful nail(s) aggravated by shoes causing difficulty standing/walking Medications Medication SIG (Take, Route, Frequency, Duration) Notes Start Date End Date Status Systane 0.4-0.3 % as directed Ophthalmic Active Calcium + D 05/07/2024 Active MiraLax 05/07/2024 Active Multi Vitamin - 1 tablet Orally Once a day; Duration: 30 day(s) 05/07/2024 Active Vitamin C 1000 MG 1 tablet Orally Once a day; Duration: 30 day(s) 05/07/2024 Active Clotrimazole-Betamethasone 1-0.05 % External; Duration: 30 Days Active Docusate Sodium 100 MG 1 capsule as need ed Orally Once a day; Duration: 30 day(s) 05/07/2024 Active Timolol Maleate 0.5 % INSTILL 1 DROP INT O EACH EYE IN THE MORNING Ophthalmic; Duration: 37 Days Active Latanoprost 0.005 % INSTILL 1 DROP INTO EACH EYE IN THE EVENING Ophthalmic; Duration: 23 Days Active clonazePAM 0.5 MG Oral; Duration: 90 Days Active Methenamine Hippurate 1 GM Oral; Duration: 90 Days Active Social History Tobacco Use: [...] Signs Height 5 ft 9 in in 08/05/2025 Weight 157 lbs 08/05/2025 BMI 23.18 kg/m2 08/05/2025 Blood pressure systolic 131 mm Hg 08/05/20 25 Blood pressure diastolic 66 mm Hg 025 Procedures Procedure Date Ordered Date Performed Result Body Sit e 19593-AFEICFZ NAIL, 6 OR MORE 08/05/2025 N/A Encounters Encounter Location Date Provider Diagnosis [facility] [address] [address] 08/05/2025 Margaret Nielsen Pain in right toe(s) M79.674 ; Onychomycosis B35.1 and Pain in left toe(s) M79.675 Assessments Encounter Date Diagnosis (ICD Code) Assessment Notes Treatment Notes Treatment Clinical Notes Section Notes 08/05/2025 Pain in right toe(s) (ICD-10 - M79.674) 08/05/2025 Onychomycosis (ICD-10 - B35.1) 08/05/2025 Pain in left toe(s) (ICD-10 - M79.675) Plan Of Treatment Pending Test Test Name Order Date [id number] NAIL, 6 OR MORE 08/05/2025 Next Appt Details Follow Up: prn, Reason: Provider Name:Margaret Riddle ana, 11/17/2025 10:00:00 AM, [address] [place] [address], [id number], Procedure Notes * Category Sub-Category Detail Notes [...] use of a nail nipper and/or dremel-type contour grinder, to a more viable healthy nail [...] to maintain effectiveness in symptomatic relief - 33457 Progress Notes * Reji TERAN GDOB:1940 (84 yo M)Acc No.[id number]:08/05/2025 Progress Note Patient: Reji JHAVERI Provider: Dena Nielsen DPM :1940 A ge:84 Y S ex:Male Date:08/05/2025 Address:[address] Pcp:Modesto Hwang NP-RUBIA Subjective: * Chief Complaints: * 1 . Painful nail(s) aggravated by shoes causing difficulty standing/walking. * HPI: P ainful Nails: Pt States Last PCP Visit: D ate: 0 12/16/2024 * ROS: G eneral/Constitutional: Nausea d enies. V omiting d enies. H tish Thirst d enies. L oss appetite d enies. C hills d enies. F atigue d enies.?Fever d enies. N ight Sweats d enies. U nexplained weight loss d enies. U nexplained weight gain d enies. H EENTM: Dentures d enies. D izziness d enies. G lasses/contacts a dmits . R etinopathy d enies. B lurred/double vision d enies. T MJ d enies. D ischarge/drainage d enies. I mplants d enies. S ore throat d enies. D ental implants d enies. H marley of hearing d enies. D ifficulty chewing/swallowing/speaking d enies. N ose bleeds d enies. S ore mouth d enies. R espiratory: On Oxygen d enies. P neumonia/pleurisy d enies.?Bronchitis d enies. E mphysema d enies. C oughing d enies. C ough blood?denies. S hortness of breath d enies. W heezing d enies. C ardiovascular: Pacemaker d enies. M SYSTEM ADMINISTRATOR d enies. W PW d enies. C HF d enies. H eart attack d enies. S eptal defect d enies. R apid beat d enies. C hest pain d enies. A trial Fib. d enies. M urmur/Palpitations d enies. G astrointestinal: Hemorrhoids d enies. S tomach/Abdominal pain d enies. D ark blood stool d enies. I rritable bowel d enies. C onstipation d enies. D iarrhea d enies. H ematology: Swelling d enies. C lots d enies. V aricose Veins d enies. B ruising d enies. B leeding problem d enies. G enitourinary: Blood urine d enies. F requent/Painfu/urination/bladder control a dmits . K idney stones d enies. I nfection (UTI) a dmits . N ephropathy d enies. s ex trans dis (STD) d enies. P rostate a dmits . M usculoskeletal: Hammertoes d enies. B unions d enies. B ack Pain a dmits . M uscle Cramps/ Resting d enies. M uscle cramps / walking d enies. G eneralized aches and pains d enies. W eakness d enies. I nteg.: Ojeda d enies. S cars d enies. C orns/calluses?denies. I ngrown nails a dmits . P ainful nails a dmits . O pen Sores d enies. R ashes d enies. N eurologic: Difficulty sleeping d enies. B rain disorder d enies. N umbness d enies. B alance trouble a dmits . C onfusion d enies. F ainting/blackouts d enies. T ingling d enies. T remors a dmits . * Medical History: A nxiety, Back,Hip,and Knee pain, Broken bones, Cancer- slight Lukemia , Diabetic, Glaucoma, Hiatal hernia, Measles, Mumps, Chicken pox, Joint implants/screws. * Surgical History: s tricture of uterer 89, broken leg 1988. * Hospitalization/Major Diagno stic Procedure: D enies Past Hospitalization. * Family History: M other: . F ather: , heart attack. * Social History: T obacco Use: T obacco use other than smoking A re you an other tobacco user? N o Tobacco Control (Standard) T obacco use: N onsmoker A dditional Findings: Tobacco non-user C urrent nonsmoker M iscellaneous: C affeine: yes, frequency:, 1-2 cups per day. Children: no. Exercise: no. Marital status: single. Occupation: Retired, self employed. D rug/Alcohol: A ANA-C (Standard) D id you have a drink containing alcohol in the past year? N o P oints 0 I nterpretation N egative * Medications: T aking Methenamine Hippurate 1 GM Tablet Oral , Taking Latanoprost 0.005 % Solution INSTILL 1 DROP INTO EACH EYE IN THE EVENING Ophthalmic , Taking clonazePAM 0.5 MG Tablet Oral , Taking Docusate Sodium 100 MG Capsule 1 capsule as needed Orally Once a day , Taking Timolol Maleate 0.5 % Solution INSTILL 1 DROP INTO EACH EYE IN THE MORNING Ophthalmic , Taking Clotrimazole-Betamethasone 1-0.05 % Cream External , Taking Vitamin C 1000 MG Tablet 1 tablet Orally Once a day , Taking Multi Vitamin - Tablet 1 tablet Orally Once a day , Taking Calcium + D , Taking MiraLax , Taking Systane 0.4-0.3 % Solution as directed Ophthalmic , Medication List reviewed and reconciled with the patient * Allergies: N .K.D.A. Objective: * Vitals: H t: 5 ft 9 in, Wt: 157, BMI: 23.18, Shoe size: 10-10.5, BP: 131/66 mm Hg, BS: not taken, Ht-cm: 175.26 cm, Wt-k.21 kg. * P ast Orders: L ab:HEMOGLOBIN A1C (GLYCOHEMOGLOBIN) (Order Date - 12/23/2024) (Collection Date & Time - 05/10/2025 09:22 AM) Value Reference Range HEMOGLOBIN A1C % (HH) 5.6 * Examination: C QM Exceptions:: Hemoglobin A1c not performed R edison: N o reason specified O phthalmology Referral: DIABETES EYE EXAM P rocedure Performed: Y es D ate of Exam Performed 0 03/23/2024 F indings of Diabetic Eye Exam: n o retinopathy N ails: NAILS are: E longated, overgrown, dystrophic, lytic, greater than 3mm thick, discolored and friable with crumbly malodorous subungual debris, with pain on palpation,, TA, T1, T2, T3, T4, T5, T6, T7, T8, T9. D ermatologic: SKIN FINDINGS: S kin exam reveals normal texture, elasticity, and tugor. There are no masses. The interspaces are clear. N eurological: SENSORY: n eurological exam reveals intact sensorium, pain sensation normal, vibration sensation intact, pinprick sensation is normal in the lower extremities, anesthesia, burning, tingling, B/L. V ascular: DP PULSES (B): 1/4, B/L. PT PULSES (B): 1/4, B/L. CAPILLARY FILL TIME: 3 secs. per digit. B/L. TROPHIC CONDITION-TEXTURE/ELASTICITY/TURGOR/HAIR GROWTH (B):?normal, B/L. TEMPERTURE GRADIENT (C): n ormal, B/L. PIGMENTATION: n ormal, B/L. EDEMA (C): a bsent, B/L. TELANGECTASIA: a bsent, B/L. Assessment: * Assessment: 1. P ain in right toe(s) - M79.674 2 . O nychomycosis - B35.1 (Primary)? 3. P ain in left toe(s) - M79.675 Plan: * Treatment: * Procedures: D ebride Nail 6-10: Nail debridement D ue to the clinical pathology outlined in the [...] use of a nail nipper and/or dremel-type contour grinder, to a more viable healthy nail [...] to maintain effectiveness in symptomatic relief - 27264. * Procedure Codes: 1 1721 DEBRIDE NAIL, 6 OR MORE * Follow Up: p rn * Images: * The named appointment provid er may or may not be the originator of this progress note, and it is not deemed complete until electronically signed by the appointment provider. Sign off status: Pending * Provider: Dena Nielsen DPM Date: 10/05/2024 Generated for Pretty balderrama/Alverto/Stephanie on: 10/06/2024 07:00 AM EST History and Physical Notes * HPI (History of Present Illness) Category Sub-Category Detail Notes Category Not es Painful Nails Pt States Last PCP Visit: Date:: 12/16/2024 Examination Category Sub-Category Detail Notes Category Not es Neurological SENSORY: neurological exa m reveals intact sensorium, pain sensation normal, vibration sensation intact, pinprick sensation is normal in the lower extremities, anesthesia, burning, tingling, B/L Dermatologic SKIN FINDINGS: Skin exam reveal s normal texture, elasticity, and tugor. There are no masses. The interspaces are clear Ophthalmology Referral DIABETES EYE EXAM Procedu re Performed:: Yes Date of Exam Performed: 03/23/2024 Findings of Diabetic Eye Exam:: no retin opathy Vascular DP PULSES (B): 14, B/L PT PULSES (B): 1/4, B/L CAPILLARY [...]
--- OUTSIDE RECORDS SUMMARY | 2025-08-06 07:01 | XMS_ITS | Patient Health Record ---
Author Organization [facility] Address [address] [place] [address] Care Team Providers Care Hybrid Corn Breeder Name Role Phone Korey Mena M.D. Primary Care Provider Anna magdajens Ramin Garcia Unavailable [phone] Reason For Referral No Information Medications Medication [...] Problem Screening for malignant neoplasm of colon (933674927) Encounter for screening for malignant neoplasm of colon (Z12.11) Active confirmed Problem Screening for malignant neoplasm of rectum (986067255) Encounter for screening for malignant neoplasm of rectum (Z12.12) Active confirmed Problem Constipation (47498187) Constipation, unspecified constipation type (K59.00) Active confirmed Problem History of adenomatous polyp of colon (183512343) Hx of adenomatous colonic polyps (Z86.010) Active confirmed Plan Of Treatment Future Test Test Name Order Date COLONOSCOPY 10/20/2015 Insurance Providers Payer Name Payer Address Payer Phone Subscriber Number Group Number Insured Name Patient Relationship to Insured Coverage Start Date Coverage End Date O [employer]UE [employer] PROFESSIONAL CLAIMS [address] [place] [address] [id number] [address] FUNES Self - patient is the insured Medical (General) History Medical History History ICD Code screening colonoscopy 06-13-2007--1 small tubular adenoma removed Denies MS,DM,CVA,Lung disease,renal dise ase osteoporosis Kyphosis Anxiety/tremor Urinary retention Surgical History Surgery Date(Month/Year) Surgery for a broken leg. Surgery for a ureteral stric ture at age 4 ( He had neurologic probelms after the general anesthesia) Laser prostate surgry--transurethral
--- OUTSIDE RECORDS SUMMARY | 2025-08-06 07:01 | XMS_ITS | Patient Health Record ---
Author Organization [facility] [place] Address [address] [facility] [place] [address] Care Team Providers Care Shake Cutter Name Role Phone [place] Kay Primary Care Provider Unav ailable Margaret Nielsen Unavailable [phone] Allergies No Known Allergies Results Component Value [...] [place] Referring Provider Last Name [facility]iden [facility] [place] Referred Provider Margaret Nielsen Referred Address [address] [facility],[place],[address], Referred Provider Specialty Podiatry Referral Priority Routine Medications Medication SIG (Take, Route, Frequency, Duration) Notes Start Date End Date Status Systane 0.4-0.3 % as directed Ophthalmic Active Methenamine Hippurate 1 GM Oral; Duration: 90 Days Active Calcium + D 05/07/2024 Active MiraLax 05/07/2024 Active Multi Vitamin - 1 tablet Orally Once a day; Duration: 30 day(s) 05/07/2024 Active Clotrimazole-Betamethasone 1-0.05 % External; Duration: 30 Days Active Vitamin C 1000 MG 1 tablet Orally Once a day; Duration: 30 day(s) 05/07/2024 Active Docusate Sodium 100 [...] 0.5 MG Oral; Duration: 90 Days Active Immunizations Vaccine Route Administration Date [...] Interpretation Negative Vital Signs Blood pressure diastolic 66 mm Hg 08/05/2025 Height 5 ft 9 in in 08/05/2025 Blood pressure systolic 131 mm Hg 08/05/2025 Weight 157 lbs 08/05/2025 BMI 23.18 kg/m2 08/05/2025 Procedures Procedure Date Ordered Date Performed Result Body Sit e 13113-YYQSGJP NAIL, 6 OR MORE 08/26/2024 N/A 66404-GCMXPAC NAIL, 6 OR MORE 01/06/2025 N/A 03566-[id number] NAIL, 6 OR MORE 05/10/2025 N/A 05389-BUHSROX NAIL, 6 OR MORE 08/05/2025 N/A Encounters Encounter Location Date Provider Diagnosis [facility] [address] [address] 08/05/2025 Margaret Nielsen Pain in right toe(s) M79.674 ; Onychomycosis B35.1 and Pain in left toe(s) M79.675 [facility] [address] [address] 08/26/2024 Margaret Nielsen Pain in right toe(s) M79.674 ; Onychomycosis B35.1 and Pain in left toe(s) M79.[address] [address] 01/06/2025 Margaret Nielsen Pain in right toe(s) M79.674 ; Onychomycosis B35.1 and Pain in left toe(s) M79.[address] [address] 05/10/2025 Margaret Fragaaker Pain in right toe(s) M79.674 ; Onychomycosis B35.1 and Pain in left toe(s) M79.675 Assessments Encounter Date Diagnosis (ICD Code) Assessment Notes Treatment Notes Treatment Clinical Notes Section Notes 08/26/2024 Pain in right toe(s) (ICD-10 - M79.674) 01/06/2025 Pain in right toe(s) (ICD-10 - M79.674) 05/10/2025 Pain in right toe(s) (ICD-10 - M79.674) 08/05/2025 Pain in right toe(s) (ICD-10 - M79.674) 08/05/2025 Onychomycosis (ICD-10 - B35.1) 05/10/2025 Onychomycosis (ICD-10 - B35.1) 01/06/2025 Onychomycosis (ICD-10 - B35.1) 08/26/2024 Onychomycosis (ICD-10 - B35.1) 01/06/2025 Pain in left toe(s) (ICD-10 - M79.675) 05/10/2025 Pain in left toe(s) (ICD-10 - M79.675) 08/26/2024 Pain in left toe(s) (ICD-10 - M79.675) 08/05/2025 Pain in left toe(s) (ICD-10 - M79.675) Plan Of Treatment Pending Test Test Name Order Date [id number] NAIL, 6 OR MORE 08/05/2025 20250-[id number] NAIL, 6 OR MORE 08/26/2024 65417-JNJZSSB NAIL, 6 OR MORE 01/06/2025 12671-MMZBGRI NAIL, 6 OR MORE 05/10/2025 Next Appt Details Provider Name:Margaret perez, 11/17/2025 10:00:00 AM, [address] [place], [address], Insurance Providers Payer Name Payer Address Payer Phone Subscriber Number Group Number Insured Name Patient Relationship to Insured Coverage Start Date Coverage End Date [facility] [address] [place] [address] [id number] Reji Teran Self - patient is the insured Medical (General) History Medical History History ICD Code Anxiety Back,Hip,and Knee pain Broken bones Cancer- slight Lukemia Diabetic Glaucoma Hiatal hernia Measles Mumps Chicken pox Joint implants/screws Surgical History Surgery Date(Month/Year) stricture of uterer 1944 broken leg 1988
[2025-08-06 10:47] LABS: Hematocrit 39.3 % (42.0-52.0); Hemoglobin 13.2 g/dl (14.0-18.0); Imm Gran Abs Auto 0.02 X10*3/uL (0.00-0.03); Imm Gran Pct Auto 0.3 % (0.0-0.4); Lymphocytes Absolute Auto 5.0 X10*3/uL (1.2-4.9); MANUAL DIFF FLAG SCAN; Mean Corpuscular HGB Conc 33.6 g/dl (31.0-36.0); Mean Corpuscular Hemoglobin 34.4 pg (27.0-33.0); Mean Corpuscular Volume 102.3 fL (80.0-98.0); NRBC Abs Auto 0.000 X10*3/uL (0.0-0.012); NRBC Pct Auto 0.0 /100WBC (0.0-0.2); Red Blood Count 3.84 X10*6/uL (4.60-5.80); SCAN SMEAR FLAG 1; White Blood Count 7.1 X10*3/uL (4.8-10.8)
[2025-08-06 11:09] LABS: Alanine Aminotransferase 19 U/L (0-40); Albumin Level 4.5 g/dL (3.5-5.0); Alkaline Phosphatase 86 U/L (39-117); Anion Gap 11 (12-20); Aspartate Amino Transferase 23 U/L (5-37); Blood Urea Nitrogen 21 mg/dL (9-16); Calcium 9.3 mg/dL (8.4-10.2); Carbon Dioxide 30 mmol/L (22-29); Chloride 103 mmol/L (96-108); Cholesterol 120 mg/dL (<200); Estimated Glomerular Filt Rate > 60; HDL Cholesterol 47 mg/dL (>40); Potassium 4.3 mmol/L (3.3-5.1); Sodium 140 mmol/L (135-145); Total Protein 6.6 g/dL (6.5-8.0); Triglycerides 88 mg/dL (<150)
[2025-08-06 11:38] LABS: Appearance Urine Cloudy; Glucose Urine UA Negative (Negative); PH 8.0 (5.0-9.0); Specific Gravity - Urine 1.015 (1.005-1.025)
[2025-08-06 12:30] LABS: Microalbum/Creatinine Ratio Ur 27.5 ug/mg cr (<30)
== END 2025-08-06 07:00 | disposition home or self-care (01) ==
LOC: HO.HMGCLDS 06:59
PROVIDERS: PCP Nurse Practitioner Family; Visit Provider Nurse Practitioner Family
DX: Z00.00 Encounter for general adult medical examination without abnormal findings (principal); N39.0 Urinary tract infection, site not specified; N32.0 Bladder-neck obstruction; E11.9 Type 2 diabetes mellitus without complications; Z13.89 Encounter for screening for other disorder; Z12.5 Encounter for screening for malignant neoplasm of prostate
CPT/HCPCS: 36415; 51798; 80053; 80061; 81003; 82043; 82570; 84153; 84443; 85025; 99212

== ENCOUNTER 2025-08-06 14:49 | Outpatient (AMB) | payer MEDICARE, SELFPAY ==
--- NOTE | 2025-08-06 14:53 | A.OFFVIS_ITS ---
Intake Visit Reasons: 6M UA/ PVR Intake Note: Patient is Present for Follow Up pvr/ua Urology Medication: Tamsulosin, Clotrimazole, Vitamin C, Methenamine Antibiotic Allergies: None Blood Thinners: None PVR:0ML Rn Camp Required: No Accompanied by: Family/Other Allergies No Known Allergies (No Known Allergies*) Allergy (Verified 08/06/25 14:57) HPI Comments Details: Reji is a very pleasant male. He is a patient of Dr. Spain. Developmental delay. Lives with brother. He is seen for the following urologic conditions. - urinary retention - lower urinary tract symptoms Six-month follow-up PVR 0 cc Remains on suppression UA clear Has been on vitamin-C with methenamine for suppression Continues with Flomax Given high-risk nature would continue with vitamin-C and methenamine. 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 - sensitive to Macrobid Three episodes in last 12 months 2023 Responded well to combination vitamin-C with methenamine Lower urinary tract symptoms Prior bladder neck contracture with incision Current medications tamsulosin Prior medications include bethanechol PVR - 10/13 0, 05/13 0cc, 11/14 0cc, 11/14 0cc 6 month f/u office [facility] Medical History Encounter for routine adult health examination without abnormal findings Glaucoma Hypotonic bladder Osteoporosis Hyperglycemia Nocturia BPH (benign prostatic hyperplasia) Urgency of urination Diabetes mellitus Right inguinal hernia Bladder neck contracture Surgical History H/O urethrotomy Family History Father CVD (cardiovascular disease) Mother No problems noted. Other HTN (hypertension) Social History Household Members: Family Housing: House Are you a primary coronary care unit nurse to a significant other at home: No Do you presently have visiting nurse or other home services: No Patient Tobacco Use Status: Never used Tobacco e-Cigarette/Vaping Use: Never Used Second Hand Smoke Exposure: No service: No Current occupational status: retired Cognitive needs: No Hearing needs: No Vision needs: No Review of Systems Const Denies chills and Denies fever(s) Card Reports no additional complaints and Denies syncope Resp Denies cough GI Denies abdominal pain and Denies heartburn Reports as per HPI and Denies change in libido Neuro Denies syncope Psych Denies change in libido Endo Denies change in libido Physical Exam Const General: cooperative, healthy appearing, comfortable and no acute distress Orientation/consciousness: patient oriented x3 HEENT Face and sinus: Yes normal facial exam Mouth: moist mucous membranes Neck Neck: Yes normal visual inspection, Yes full ROM and Yes trachea midline Chest Chest palpation & inspection: normal inspection of the chest Resp Effort & Inspection: normal respiratory effort, able to speak in complete sentences and no respiratory distress GI Inspection: Yes normal to inspection Back/Spine/Pelvis Cervical Spine: normal cervical lordosis Thoracic/Lumbar Spine: thoracic and lumbar spine normal to inspection Skin General skin exam: no rashes or lesions noted Neuro General: patient oriented x3, gait normal, tone normal and moves all extremities Extrem General: Yes normal to inspection and Yes capillary refill normal Office Procedures Post Void Residual Post Residual Void Post Void Residual (PVR): 0 50940-Egef Void Residual by ultrasound Results AMB Urinalysis, Automated UA Leukoctes 0 Marko/uL Last Edit by Aurelia Grimm [facility] on 08/06/25 15:09 UA Nitrite Negative Last Edit by Aurelia Grimm [facility] on 08/06/25 15:09 UA Urobilinogen 0.2 mg/dL Last Edit by Aurelia Grimm [facility] on 08/06/25 15:0 9 UA Protein 0 mg/dL Last Edit by Aurelia Grimm [facility] on 08/06/25 15:09 UA pH 6.0 Last Edit by Aurelia Grimm [facility] on 08/06/25 15:09 UA Blood 0 Garry/uL Last Edit by Aurelia Grimm [facility] on 08/06/25 15:09 UA Specific [place] 1.005 Last Edit by Aurelia Grimm [facility] on 08/06/25 15: 09 UA Ketone Negative Last Edit by Aurelia Grimm [facility] on 08/06/25 15:09 UA Bilirubin 0 mg/dL Last Edit by Aurelia Grimm [facility] on 08/06/25 15:09 UA Glucose 0 mg/dL Last Edit by JAYSON Mcnally on 08/06/25 15:09 Assessment & Plan Assessment & Plan (1) Complicated urinary tract infection: Code(s): N39.0 - Urinary tract infection, site not specified Category: Medical (2) Bladder neck contracture: Code(s): N32.0 - Bladder-neck obstruction Category: Medical Plan Twelve month follow-up Orders: Orders AMB Post Void Residual by ultrasound Today N39.0 - Urinary tract infection, site not specified AMB Urinalysis Automated Today N39.0 - Urinary tract infection, site not specified, Z13.9 - Encounter for screening, unspecified Medications: Refilled ascorbic acid (vitamin C) 1 g PO DAILY 90 tabs 3RF 90 days N39.0 - Urinary tract infection, site not specified methenamine hippurate 1 g PO DAILY 90 tabs 3RF 90 days N39.0 - Urinary tract infection, site not specified tamsulosin (Flomax) 0.4 mg PO DAILY 90 caps 3RF 90 days N39.0 - Urinary tract infection, site not specified Patient Instructions: This note is constructed using voice recognition software. While every effort has been made to ensure accuracy balance bridge inspector errors may have been included. Imaging studies, laboratory and physical exam results were discussed and reviewed in detail. No major barriers to patient understanding were identified. An opportunity to ask questions regarding the treatment plan was provided. All questions were answered. The patient expressed understanding and agreement with the above treatment plan. The patient is aware they should contact our office by phone for worsening of their current condition or the appearance of new urologic symptoms. Compliance is encouraged with any medications and followup testing that is ordered. It is a privilege to participate in the urologic care of your patient. If you have any questions or concerns regarding treatment for the above conditions, or other urologic issues, please do not hesitate to contact me. The office telephone contact is [phone]. Sincerely, Dr Jovi Bell MD, [facility] - Urology Compassionate Specialist Care for the Genitourinary System Coding Level of Care Code Est Pt Level 3 (56303) Complex EM visit Add On G2211 Diagnoses Complicated urinary tract infection N39.0 Bladder neck contracture N32.0 CPT Codes Post Residual Void - PVR CPT Code: 48535-Ljdj Void Residual by ultrasound ([id number])
== END 2025-08-06 15:15 | disposition home or self-care (01) ==
LOC: HO.HUSH 14:50
PROVIDERS: PCP Nurse Practitioner Family; Visit Provider Urology
DX: N39.0 Urinary tract infection, site not specified (principal); N32.0 Bladder-neck obstruction; Z13.9 Encounter for screening, unspecified
CPT/HCPCS: 99213; G2211

== ENCOUNTER 2025-08-11 10:58 | Outpatient (REF) | payer MEDICARE, SELFPAY ==
--- OUTSIDE RECORDS SUMMARY | 2025-08-11 21:40 | XMS_ITS | Patient Health Record ---
Author Organization [facility] [place] Address [address] [facility] [place] [address] Care Team Providers Care Occupational Therapist Home Based Name Role Phone [place] Kay Primary Care Provider Unav ailable Margaret Nielsen Unavailable [phone] Allergies No Known Allergies Results Component Value [...] [place] Referring Provider Last Name Jaiden [facility] [place] Referred Provider Margaret Nielsen Referred Address [address] [facility],[place],[address], Referred Provider Specialty Podiatry Referral Priority Routine [...] Ordered Date Performed Result Body Sit e 71570-SZNRPFT NAIL, 6 OR MORE 08/26/2024 N/A 22093-TZLMTFX NAIL, 6 OR MORE 01/06/2025 N/A 57367-ZQMYQPP NAIL, 6 OR MORE 05/10/2025 N/A 39261-NYVFUEJ NAIL, 6 OR MORE 08/05/2025 N/A Encounters Encounter Location Date Provider Diagnosis [facility] [address] [address] 08/26/2024 Margaret Nielsen Pain in right toe(s) M79.674 ; Onychomycosis B35.1 and Pain in left toe(s) M79.675 [facility] [address] [address] 01/06/2025 Margaret Nielsen Pain in right toe(s) M79.674 ; Onychomycosis B35.1 and Pain in left toe(s) M79.[address] [address] 05/10/2025 Margaret Nielsen Pain in right toe(s) M79.674 ; Onychomycosis B35.1 and Pain in left toe(s) M79.[address] [address] 08/05/2025 Margaret Nielsen Pain in right toe(s) [...] Treatment Pending Test Test Name Order Date [id number] NAIL, 6 OR MORE 08/26/2024 25435-[id number] NAIL, 6 OR MORE 01/06/2025 62131-[id number] NAIL, 6 OR MORE 05/10/2025 58594-MJADHCT NAIL, 6 OR MORE 08/05/2025 Next Appt Details Provider Name:Margaret perez, 11/17/2025 10:00:00 AM, [address] [place], [address], Insurance Providers Payer Name Payer Address Payer Phone Subscriber Number Group Number Insured Name Patient Relationship to Insured Coverage Start Date Coverage End Date [facility] [address] [place] [address] [id number] Reji Teran Self - patient is the insured Medical (General) History Medical History History ICD Code Anxiety Back,Hip,and Knee pain Broken bones Cancer- slight Lukemia Diabetic Glaucoma Hiatal hernia Measles Mumps Chicken pox Joint implants/screws Surgical History Surgery Date(Month/Year) stricture of uterer 1944 broken leg 1988
--- OUTSIDE RECORDS SUMMARY | 2025-08-11 21:40 | XMS_ITS | Patient Health Record ---
Author Organization [facility] Address [address] [place] [address] Care Team Providers Care Commissioned Sales Associate Name Role Phone Korey Mena M.D. Primary Care Provider Anna magdajens Ramin Garcia Unavailable [phone] Reason For Referral No Information Medications Medication SIG (Take, Route, Frequency, Duration) Notes Start Date End Date Status clonazePAM Active Bethanechol Chloride Active Multivitamins Active Citracal + D Active Colyte w Flavor Packs 240 GM Solution Reconstituted as directed Orally as directed; Duration: 1 day(s) 10/23/2015 Active Flomax Active Fosamax Active Clotrimazole-Betamethasone Active Lotrimin AF Active Stool Softener Activ e Triamcinolone Acetonide Active Social History Social History Additional Details Category Social Info Options Details Miscellaneous: Marital status: single Occupation: disabled Living with: Family Section Notes: He does not smoke or use any significant amounts of alcohol Problems Problem Type SNOMED Code ICD Code Onset Dates Problem Status W/U Status Risk Notes Problem Screening for malignant neoplasm of colon (452976597) Encounter for screening for malignant neoplasm of colon (Z12.11) Active confirmed Problem Screening for malignant neoplasm of rectum (568570106) Encounter for screening for malignant neoplasm of rectum (Z12.12) Active confirmed Problem Constipation (98630795) Constipation, unspecified constipation type (K59.00) Active confirmed Problem History of adenomatous polyp of colon (437441268) Hx of adenomatous colonic polyps (Z86.010) Active confirmed Plan Of Treatment Future Test Test Name Order Date COLONOSCOPY 10/20/2015 Insurance Providers Payer Name Payer Address Payer Phone Subscriber Number Group Number Insured Name Patient Relationship to Insured Coverage Start Date Coverage End Date [facility] [employer] PROF[employer]AL CLAIMS [address] [place] [address] [id number] ARABELLA FUNES Self - patient is the insured Medical (General) History Medical History History ICD Code screening colonoscopy 06-13-2007--1 small tubular adenoma removed Denies FL,DM,CVA,Lung disease,renal dise ase osteoporosis Kyphosis Anxiety/tremor Urinary retention Surgical History Surgery Date(Month/Year) Surgery for a broken leg. Surgery for a ureteral stric ture at age 4 ( He had neurologic probelms after the general anesthesia) Laser prostate surgry--transurethral
== END 2025-08-11 10:59 | disposition home or self-care (01) ==
LOC: HO.HMGCLDS 10:58
PROVIDERS: PCP Nurse Practitioner Family; Visit Provider Nurse Practitioner Family
DX: D69.6 Thrombocytopenia, unspecified (principal)
CPT/HCPCS: 36415

== ENCOUNTER 2025-08-13 08:19 | Emergency (ER) | payer MEDICARE, SELFPAY ==
--- NOTE | ~2025-08-13 | CT_ITS ---
EXAMINATION: CT CHEST WITH CONTRAST CLINICAL INFORMATION: Status post fall. Chest trauma. COMPARISON: None available. TECHNIQUE: Multidetector volumetric CT imaging of the chest was obtained after the administration of 85 mL of Omnipaque 350 intravenous contrast without immediate adverse reactions. Axial MIP volume rendering provided. Sagittal and coronal reformatted images were obtained. This CT examination was performed using dose optimization techniques as appropriate, variously including the following: *Automated exposure control *Adjustment of mA and/or kV according to patient size (this includes techniques or standardized protocols for targeted exams where dose is matched to indication/reason for exam; i.e. extremities or head) *Use of iterative reconstruction technique DLP: 344.71 mGy-cm FINDINGS: No pneumothorax. No hemothorax. No pneumomediastinum. No hemopericardium. No hemomediastinum. No pleural effusion. No pericardial effusion. Thoracic aorta is intact without IV contrast extravasation or intimal flap. The descending thoracic aorta diameter is 3.3 cm. No gross lung contusion. Calcified plaques throughout the thoracic aorta wall and its main branches and the coronary arteries. Chronic interstitial lung disease. No acute airspace disease. The airway is patent. Multilevel spondylosis without acute fracture or trauma-related listhesis in the axial skeleton. Sternum is intact. Clavicles are intact. Scapula are intact. No acute rib fracture. CT/CT abdomen pelvis w IV con IMPRESSION: No acute intrathoracic trauma related injury or acute fracture. Fleischner guidelines were followed. EXAMINATION: CT ABDOMEN AND PELVIS WITH CONTRAST CLINICAL INFORMATION: Status post fall. Abdominal trauma. COMPARISON: None available. TECHNIQUE: Multidetector volumetric images were obtained from the superior aspect of the liver through the pubic symphysis following administration 85 mL of Omnipaque 350 intravenous contrast. Sagittal and coronal reformatted images were obtained on the technologist's workstation. Oral contrast: No This CT examination was performed using dose optimization techniques as appropriate, variously including the following: *Automated exposure control *Adjustment of mA and/or kV according to patient size (this includes techniques or standardized protocols for targeted exams where dose is matched to indication/reason for exam; i.e. extremities or head) *Use of iterative reconstruction technique DLP: 797.47 mGy-cm FINDINGS: Liver is intact. No perihepatic fluid collection. Main portal veins and intrahepatic portion of the IVC are patent without IV contrast extravasation. Diffuse the cystic morphology pattern of the pancreas. No peripancreatic fluid collection. Spleen is intact. No perisplenic fluid collection. Small accessory spleen. Adrenal glands are intact. Kidneys are intact without perinephric/pararenal compartment hematoma. Multifocal cystic lesions in the kidneys. Nonobstructing nephrolithiasis in the left kidney. No hematoma in the retroperitoneum. No mesenteric hematoma. No pneumoperitoneum. No ascites. No hemoperitoneum. Appendix is normal Abundant stool throughout the large intestine and a prominent rectum without gross intestinal wall thickening. Aorta is intact without IV contrast extravasation or aneurysm. Calcified plaques in the thoracic aorta. Multilevel lumbar spondylosis without acute fracture or trauma-related listhesis. The bony pelvis is intact. The coxofemoral joints are intact with normal alignment. IMPRESSION: No intra-abdominal solid organ or vascular trauma-related injury. No gross acute fracture. Abundant stool suggesting constipation. Multicystic pancreas Bilateral renal cysts. Nonobstructing nephrolithiasis, left kidney.. Fleischner guidelines were followed. Electronically signed by: Basilio Yates MD 08/13/2025 11:02 AM [facility]
--- NOTE | ~2025-08-13 | CT_ITS ---
EXAMINATION: CT HEAD WITHOUT CONTRAST CLINICAL INFORMATION: fallhead strike COMPARISON: CT dated June 20, 2006 is not available on PACS. TECHNIQUE: Contiguous axial imaging was performed from the skull base to vertex without intravenous administration of contrast. This CT examination was performed using dose optimization techniques as appropriate, variously including the following: *Automated exposure control *Adjustment of mA and/or kV according to patient size (this includes techniques or standardized protocols for targeted exams where dose is matched to indication/reason for exam; i.e. extremities or head) *Use of iterative reconstruction technique DLP: 775.15 mGy-cm FINDINGS: No acute cortical disruption in the bony calvarium. There is skin breakthrough the forehead. No acute intracranial hemorrhage, mass effect, midline shift, hydrocephalus or herniation. Martinez-white matter differentiation is normal. Bilateral multifocal patchy and confluent deep periventricular white matter hypodensities involving centrum semiovale and brooke radiata. Multiple old lacunar infarcts, basal ganglia and extracapsular and brooke radiata white matter. Calcified plaques in the V4 segments of the vertebral arteries, basilar artery and cavernous supracavernous segments both ICAs. Normal position of the cerebellar tonsils. No air-fluid levels in the paranasal sinuses. Tympanic cavities and mastoid cells are aerated. Degenerative changes in the temporomandibular joints. CT/CT cervical spine wo IV con IMPRESSION: No acute fracture, bony calvarium. No acute intracranial hemorrhage. Extensive white matter disease likely related to small vessel occlusive disease. Global cerebral atrophy. Atherosclerosis disease, intracranial. Skin laceration, forehead. EXAMINATION: CT CERVICAL SPINE WITHOUT CONTRAST CLINICAL INFORMATION: Status post fall. Neck pain. COMPARISON: None available. TECHNIQUE: 1 diffuse axial images through the cervical spine using 3 mm collimation with bone and soft tissue algorithm. This CT examination was performed using dose optimization techniques as appropriate, variously including the following: *Automated exposure control *Adjustment of mA and/or kV according to patient size (this includes techniques or standardized protocols for targeted exams where dose is matched to indication/reason for exam; i.e. extremities or head) *Use of iterative reconstruction technique DLP: 288.69 mGy-cm FINDINGS: Degenerative changes in the craniocervical junction with normal alignment of the occipital condyles and lateral masses of C1. No acute cortical disruption. Multilevel marginal osteophyte formation and endplate sclerosis decreased intervertebral disc height and vacuum phenomenon at C6-7 and to a lesser extent from C2-3 to C5-6 level. Bilateral facet joint hypertrophy at multiple levels. C1 is intact with the degenerative changes. C2 is intact. C3 is intact with degenerative changes. C4 is adequate degenerative changes. C5 is intact with degenerative changes. C5 is intact with degenerative changes. C6 is intact with degenerative changes. C7 is intact. No gross prevertebral soft tissue hematoma. Tympanic cavities and mastoid cells are aerated. Degenerative changes in the temporomandibular joints. Desiccation's of the nuchal ligament at C4-5. IMPRESSION: Multilevel cervical spondylosis without acute fracture or trauma-related listhesis. Fleischner guidelines were followed. Electronically signed by: Basilio Yates MD 08/13/2025 10:45 AM [facility]
--- NOTE | ~2025-08-13 | CT_ITS ---
EXAMINATION: CT FACIAL BONES WITHOUT CONTRAST CLINICAL INFORMATION: Facial trauma COMPARISON: None available. TECHNIQUE: Axial CT was performed through the facial bones without contrast. Coronal and sagittal reformatted images were generated from the original axial data set. ALARA: The examination used one or more of the following radiation dose reduction techniques: Automated exposure control, iterative reconstruction, and/or adjustment of mA and/or KV. FINDINGS: Scalp laceration is seen right of midline in the frontal region. No fracture line is identified. Paranasal sinuses are clear. There is severe degenerative changes in the temporal mandibular joints with joint space narrowing, osteophytes, and flattening of the subchondral bone. Degenerative irregularity of the anterior C1-C2 articulation. There is also severe right and [id number] left facet osteoarthritis at C2-3. CT/CT facial bones wo IV con IMPRESSION: Right frontal scalp laceration. No acute bony abnormality. Degenerative changes are present in the imaged portions of the cervical spine and in the temporal mandibular joints. Electronically signed by: Anibal Dela Cruz MD 08/13/2025 10:44 AM MANI
--- NOTE | 2025-08-13 08:28 | ECG_ITS ---
Test Reason : fall Blood Pressure : */* mmHG Vent. Rate : 69 BPM Atrial Rate : 69 BPM P-R Int : 160 ms QRS Dur : 76 ms QT Int : 414 ms P-R-T Axes : 49 44 52 degrees QTcB Int : 443 ms Normal sinus rhythm Septal infarct , age undetermined Abnormal ECG No previous ECGs available Referred By: Jane Mann Electronically Signed By: TAQUERIA BECKETT
[2025-08-13 08:39] VITALS: BP 100/72; BP 119/79; PULSE 68; PULSE 76; RESP 18; TEMP 36.7; O2SAT 95; BMI 25.8
--- NOTE | 2025-08-13 08:58 | ED.GENADULT ---
HPI - General Adult General Chief complaint: Fall Stated complaint: FALL,FACE LACS,+C COLLAR Time Seen by Provider: 08/13/25 08:23 Source: patient and EMS Mode of arrival: ambulatory Limitations: no limitations History of Present Illness HPI narrative: Chief Complaint: ?I got up from bed and fell forward, hitting my head.? History of Present Illness: 60-year-old male past medical history significant for tremor, anemia, dermatitis, diabetes, UTIs, monoclonal gammopathy of unknown significance, hypotonic bladder who reports that earlier today he ?just got up out of bed and fell down.? The event occurred rapidly; the patient is unsure of the exact mechanism of the fall. He fell forward onto his face/head and notes multiple abrasions to his head, forehead, and face. He denies any pain. It is unclear whether there was loss of consciousness. No one witnessed the fall. He is not taking any blood thinners. He had laboratory studies drawn last week but will have repeat labs obtained prior to planned contrast imaging today. He is aware of this. Also patient denies preceding symptoms to fall. Denies cp, headache, sob, nausea, vomiting, abdominal pain. Related Data Home Medications ?Medication ?Instructions ?Recorded ?Confirmed latanoprost 0.005 % eye drops 1 drp ophthalmic (eye) BEDTIME 09/29/20 08/04/25 calcium citrate-vitamin D3 2 tab PO DAILY 04/14/21 08/04/25 docusate sodium 100 mg PO DAILY 04/14/21 08/04/25 multivitamin 1 tab PO DAILY 04/14/21 08/04/25 propylene glycol 0.6 % eye drops 1 drp ophthalmic (eye) BID PRN Dry 01/08/23 08/04/25 (Systane Complete) Eye(S) timolol maleate 0.5 % eye drops 0.5 drp ophthalmic (eye) DAILY 01/08/23 08/04/25 polyethylene glycol 3350 17 gram 17 g PO DAILY 04/28/24 08/04/25 oral powder packet (ClearLax) Previous Rx's ?Medication ?Instructions ?Recorded clotrimazole-betamethasone 1 1 appl topical DAILY PRN 02/03/25 %-0.05 % topical cream dermatitis 30 days #15 grams clonazepam 0.5 mg tablet 0.5 mg PO TID #270 tabs 07/08/25 ascorbic acid (vitamin C) 1,000 mg 1 g PO DAILY 90 days #90 tabs 08/06/25 tablet methenamine hippurate 1 gram tablet 1 g PO DAILY 90 days #90 tabs 08/06/25 tamsulosin 0.4 mg capsule (Flomax) 0.4 mg PO DAILY 90 days #90 caps 08/06/25 Allergies Allergy/AdvReac Type Severity Reaction Status Date / Time No Known Allergies (No Known Allergy Verified 08/13/25 08:43 Allergies*) Review of Systems Review of Systems: Yes all other systems are reviewed and are negative [facility] Past Medical History Attestation statement: The following information was validated with the patient. Source: old records reviewed and nursing notes reviewed Medical History Encounter for routine adult health examination without abnormal findings Glaucoma Hypotonic bladder Osteoporosis Hyperglycemia Nocturia BPH (benign prostatic hyperplasia) Urgency of urination Diabetes mellitus Right inguinal hernia Bladder neck contracture Surgical History H/O urethrotomy Family History Family History Father CVD (cardiovascular disease) Mother No problems noted. Other HTN (hypertension) Social History Social History Household Members: Family Housing: House Are you a primary skin care consultant to a significant other at home: No Do you presently have visiting nurse or other home services: No Patient Tobacco Use Status: Never used Tobacco Smoked in Last 30 Days: No e-Cigarette/Vaping Use: Never Used Second Hand Smoke Exposure: No Use of substances other than those prescribed or required for medical reasons: No Advance Directives: No Advance Directives Information Provided: Yes Do you have a plan to hurt others: No Plan service: No Current occupational status: retired Cognitive needs: No Hearing needs: No Vision needs: No Physical Exam ED Exam Exam: Appearance: Alert.? Oriented X3.? No acute distress.? Head: Normocephalic, + traumatic , no step-offs or deformities Eyes: Pupils equal, round and reactive to light.? Neck: Normal inspection.? Neck supple.? CVS: Normal heart rate and rhythm.? Pulses normal.? Respiratory: No respiratory distress.? Breath sounds normal.? Abdomen: Soft and nontender.? Skin: Skin warm and dry.? Normal skin color.? Normal skin turgor.? + abrasions and lac to right side of forehead Extremities: No lower extremity edema.? No calf ttp. 5/5 strength to bilateral upper and lower extremities Back: No midline tenderness, no C-spine tenderness, full range of motion, no CVA tenderness bilaterally Neuro: Oriented X 3.? No motor deficit.? No sensory deficit. CN 2-12 intact Vital Signs: Vital Signs - 24 hr 08/13/25 08:39 08/13/25 10:00 08/13/25 12:00 Temperature 98.0 F Pulse Rate 68 74 84 Respiratory Rate 18 20 Blood Pressure 119/79 118/82 125/68 Pulse Oximetry 95 96 Oxygen Delivery Method Room Air 08/13/25 12:53 08/13/25 12:54 08/13/25 12:54 Temperature Pulse Rate 80 84 Respiratory Rate Blood Pressure 116/78 125/68 132/64 Pulse Oximetry Oxygen Delivery Method BMI result Body Mass Index 25.8 vss Course Reevaluation(s) Reevaluation #1: CBC demonstrating a macrocytic anemia that appears to be around patient's baseline no acute findings. Normal white blood cell count. Patient's chemistry appears to be at baseline with mildly elevated carbon dioxide level and mild elevation in BUN likely secondary to poor p.o. intake/dehydration. Troponin negative. Coags unremarkable. CT scans pending.UA Pending Time: 10:10 Reevaluation #2: CT head with no intracranial hemorrhage extensive white matter disease likely related to small-vessel occlusive disease . Global cerebral atrophy multilevel cervical spondylosis without acute fracture traumatic related listhesis. CT of the face right frontal scalp laceration no acute bony abnormality degenerative changes in cervical spine and TMJ CT chest, abdomen and pelvis are still pending. Will clear cervical spine at this time and review imaging as it results Time: 10:58 Reevaluation #3: Area was adequately sutured using 4, 5-0 sutures nonabsorbable. Patient tolerated procedure well. Edges well approximated no bleeding. Tetanus shot will be given an patient to be discharged with advice to come back in 5-7 days for suture removal UA needed prior to dc Educated patient on diagnosis and treatment plan, answered all question, patient verbalizes understanding. At this time patient will be discharged home, advised to return with new or worsening symptoms. Educated on worrisome signs and symptoms and when to return. At this time I feel comfortable discharge home. Time: 12:40 Additional Reevaluation(s): Orthostatics are negative. UA without infection. Patient to be discharged home when to return in 5-7 days for suture removal. Educated patient on diagnosis and treatment plan, answered all question, patient verbalizes understanding. At this time patient will be discharged home, advised to return with new or worsening symptoms. Educated on worrisome signs and symptoms and when to return. At this time I feel comfortable discharge home. Medications Administered Discontinued Medications Generic Name Dose Route Start Last Admin Trade Name Freq PRN Reason Stop Dose Admin Diphtheria/Tetanus/Acell Pertussis 0.5 ml 08/13/25 12:17 08/13/25 13:02 Diphth,Pertus(Acell),Tet Adult 0.5 Ml Syringe IM 08/13/25 12:18 0.5 ml .ONCE ONE Administration Iohexol 100 ml 08/13/25 09:59 08/13/25 09:59 Iohexol 350 Mg/Ml 100 Ml Infus..Btl IV 08/13/25 10:00 85 ml ONCE ONE Administration Procedures Laceration Laceration 1: Site: scalp Side (If applicable): right Size (cm): 4 Description: linear Depth: simple, single layer Local Anesthetic: lidocaine 1% Amount of anesthesia used (mL): 5 Pre-repair: wound explored, irrigated extensively and deep structures intact Skin layer closed with: nylon Size (cm): 5-0 Number of sutures: 4 Technique: simple, interrupted Medical Decision Making Medical Decision Making MDM Narrative: 84-year-old male with mechanical fall and head strike. Primary concerns are for intracranial hemorrhage and other traumatic injuries to head, neck, facial bones, cervical spine, chest, abdomen, and pelvis. Will also rule out metabolic derangements and dysrhythmias. Problem #1: Mechanical fall with head trauma Assessment: Unwitnessed fall with forward impact to face/head, multiple abrasions, unclear LOC, no anticoagulation. Plan: Obtain CT head without contrast to evaluate for intracranial bleed. Obtain CT facial bones, CT cervical spine, and CT chest/abdomen/pelvis to assess for additional traumatic injuries. Draw labs prior to contrast imaging. Will rule out metabolic derangements dysrhythmias. Unlikely pulmonary embolism, ACS. Differential Diagnosis Differential Diagnoses: The differential diagnosis associated with the presentation includes Admission/Observation Consideration of admission/observation: Escalation of care including admission/observation considered Lab Data MDM Lab Attestation statement: I reviewed the patient's lab results. 08/13/25 09:05 08/13/25 09:05 Labs: Lab Results 08/13/25 08/13/25 Range/Units 09:05 12:59 WBC 7.6 (4.8-10.8) X10*3/uL RBC 3.74 L (4.60-5.80) X10*6/uL Hgb 12.8 L (14.0-18.0) g/dl Hct 37.9 L (42.0-52.0) % MCV 101.3 H (80.0-98.0) fL MCH 34.2 H (27.0-33.0) pg MCHC 33.8 (31.0-36.0) g/dl RDW 13.0 (11.0-16.0) % Plt Count 107 L (160-400) X10*3/uL MPV 12.0 (9.4-12.4) fL Immature Gran % (Auto) 0.3 (0.0-0.4) % Neut % (Auto) 29.2 L (45-73) % Lymph % (Auto) 65.5 H (20-40) % [place] % (Auto) 3.8 (2-11) % Eos % (Auto) 0.9 (0-4) % Baso % (Auto) 0.3 (0-2) % Lymph # (Auto) 5.0 H (1.2-4.9) X10*3/uL [place] # (Auto) 0.3 (0.1-1.2) X10*3/uL Eos # (Auto) 0.1 (0.0-0.4) X10*3/uL Baso # (Auto) 0.0 (0.0-0.2) X10*3/uL Abs Immat Gran (auto) 0.02 (0.00-0.03) X10*3/uL Absolute Neuts (auto) 2.2 (2.0-8.3) x10*3/uL Absolute Nucleated RBC 0.000 (0.0-0.012) X10*3/uL Nucleated RBC % (auto) 0.0 (0.0-0.2) /100WBC Smear Tech's Comments VERIFIED PT 13.6 H (11.2-13.5) SEC INR 1.1 (0.9-1.1) Sodium 142 (135-145) mmol/L Potassium 4.4 (3.3-5.1) mmol/L Chloride 107 (96-108) mmol/L Carbon Dioxide 31 H (22-29) mmol/L Anion Gap 8 L (12-20) BUN 20 H (9-16) mg/dL Creatinine 0.68 (0.5-1.4) mg/dL Estim Creat Clear Calc 80.5 Estimated GFR > 60 Random Glucose 126 H (60-115) mg/dL Calcium 9.2 (8.4-10.2) mg/dL Magnesium 2.4 (1.6-2.6) mg/dL Total Bilirubin 0.7 (0.0-1.0) mg/dL AST 19 (5-37) U/L ALT 17 (0-40) U/L Alkaline Phosphatase 86 (39-117) U/L Total Creatine Kinase 54 (38-174) U/L Troponin I High Sens < 2.7 (<3.5-35.0) ng/L Total Protein 6.2 L (6.5-8.0) g/dL Albumin 4.3 (3.5-5.0) g/dL Urine Color Yellow Urine Appearance Clear Urine pH 8.0 (5.0-9.0) Ur Specific [place] >= 1.030 H (1.005-1.025) Urine Protein Negative (Neg-Trace) mg/dL Urine Glucose (UA) Negative (Negative) mg/dL Urine Ketones 15 (Negative) mg/dL Urine Blood Negative (Negative) Urine Nitrite Negative (Negative) Ur Leukocyte Esterase Negative (Negative) Salicylates < 5.0 L (15-30) mg/dL Acetaminophen < 3 (<30) mcg/mL Ethyl Alcohol 14 mg/dL Independent Interpretation I performed an independent interpretation of an: EKG (Normal sinus rhythm Septal infarct , age undetermined Abnormal ECG No previous ECGs available) and CT Scan (no acute traumatic findings just scalp laceration right frontal ) Radiology Impression Discussion of test interpretation with radiology: I have reviewed the radiologist's reading. External Record Review External record reviewed: Inpatient record, Office record, Outpatient record, Prior outpatient labs, Prior outpatient radiology, Primary care record and Outside ED record Chronic Conditions Patient?s care impacted by: Other (see hpi ) Critical Care Time Critical Care Time Critical Care Time: Yes Total Critical Care Time: 35 Attestation: I attest to this time spent taking care of the patient, obtaining history, physical, reviewing labs, imaging, treatment of patients condition +/- specialist/hospitalist consult +/- procedure Discharge Plan Discharge Clinical Impression: Forehead laceration, Brain concussion, Fall Patient Disposition: Home, Self-Care Instructions: Concussion (ED), Fall Prevention (ED) Additional Instructions: Take your medications as prescribed. If you were prescribed antibiotics today, it is important that you take your medication to their entirety, do not skip any doses, do not finish them early. Follow-up with your primary care provider this week. Return to the emergency department with new or worsening symptoms. Such as fevers, chills, chest pain, shortness of breath, nausea, vomiting, dizziness, headache, vision changes, lethargy In case of emergency call 911 Return 5-[address] dy[address] for suture removal CT/CT head/brain wo IV con IMPRESSION: No acute fracture, bony calvarium. No acute intracranial hemorrhage. Extensive white matter disease likely related to small vessel occlusive disease. Global cerebral atrophy. Atherosclerosis disease, intracranial. Skin laceration, forehead. Ct Cspine IMPRESSION: Multilevel cervical spondylosis without acute fracture or trauma-related listhesis. Fleischner guidelines were followed. IMPRESSION: No intra-abdominal solid organ or vascular trauma-related injury. No gross acute fracture. Abundant stool suggesting constipation. Multicystic pancreas Bilateral renal cysts. Nonobstructing nephrolithiasis, left kidney.. CT/CT abdomen pelvis w IV con IMPRESSION: No acute intrathoracic trauma related injury or acute fracture. Prescriptions: No Action calcium citrate-vitamin D3 2 tab PO DAILY docusate sodium 100 mg PO DAILY multivitamin 1 tab PO DAILY polyethylene glycol 3350 [ClearLax] 17 gram Powder In Packet 17 g PO DAILY timolol maleate 0.5 % drops 0.5 drp ophthalmic (eye) DAILY Systane Complete 0.6 % drops 1 drp ophthalmic (eye) BID PRN (Reason: Dry Eye(S)) latanoprost 0.005 % drops 1 drp ophthalmic (eye) BEDTIME clotrimazole-betamethasone 1-0.05 % cream 1 appl topical DAILY PRN (Reason: dermatitis) 30 Days Qty: 15 1RF clonazepam 0.5 mg tablet 0.5 mg PO TID Qty: 270 1RF ascorbic acid (vitamin C) 1,000 mg tablet 1 g PO DAILY 90 Days Qty: 90 3RF methenamine hippurate 1 gram tablet 1 g PO DAILY 90 Days Qty: 90 3RF tamsulosin [Flomax] 0.4 mg capsule 0.4 mg PO DAILY 90 Days Qty: 90 3RF Referrals: Modesto Hwang, [employer] [Primary Care Provider, Internal Medicine] - 2 weeks Print Language: Setswana
--- OUTSIDE RECORDS SUMMARY | 2025-08-13 09:09 | XMS_ITS | Patient Health Record ---
Author Organization [facility] Address [address] [place] [address] Care Team Providers Care Hydraulic And Plumbing Installer Name Role Phone Korey Mena M.D. Primary Care Provider Anna magdajens Ramin Garcia Unavailable [phone] Reason For Referral No Information Medications Medication [...] Problem Screening for malignant neoplasm of colon (524054607) Encounter for screening for malignant neoplasm of colon (Z12.11) Active confirmed Problem Screening for malignant neoplasm of rectum (910463382) Encounter for screening for malignant neoplasm of rectum (Z12.12) Active confirmed Problem Constipation (61955534) Constipation, unspecified constipation type (K59.00) Active confirmed Problem History of adenomatous polyp of colon (690846500) Hx of adenomatous colonic polyps (Z86.010) Active confirmed Plan Of Treatment Future Test Test Name Order Date COLONOSCOPY 10/20/2015 Insurance Providers Payer Name Payer Address Payer Phone Subscriber Number Group Number Insured Name Patient Relationship to Insured Coverage Start Date Coverage End Date [facility] [place] [address] [place] [address] [id number] ARABELLA FUNES Self - patient is [...]
--- OUTSIDE RECORDS SUMMARY | 2025-08-13 09:09 | XMS_ITS | Patient Health Record ---
Author Organization [facility] [place] Address [address] [place] [place] [address] Care Team Providers Care Administrative Fellow Name Role Phone Modesto Kay Primary Care Provider Unav ailable Margaret Nielsen Unavailable [phone] Allergies No Known Allergies Results Component Value [...] Modesto Referring Provider Last Name [facility] Provider Margaret Nielsen Referred Address [address],[place],[address], Referred Provider Specialty Podiatry Referral Priority Routine [...] Ordered Date Performed Result Body Sit e [id number] NAIL, 6 OR MORE 08/26/2024 N/A [id number] NAIL, 6 OR MORE 01/06/2025 N/A [id number] NAIL, 6 OR MORE 05/10/2025 N/A [id number] NAIL, 6 OR MORE 08/05/2025 N/A Encounters Encounter Location Date Provider Diagnosis [facility] [address] [address] 08/26/2024 Margaret Nielsen Pain in right toe(s) M79.674 ; Onychomycosis B35.1 and Pain in left toe(s) M79.675 [facility] [address] [address] 01/06/2025 Margaret Nielsen Pain in right toe(s) M79.674 ; Onychomycosis B35.1 and Pain in left toe(s) M79.[address] [address] 05/10/2025 Margaret Nielsen Pain in right toe(s) M79.674 ; Onychomycosis B35.1 and Pain in left toe(s) M79.[address] [address] 08/05/2025 Margaret Nielsen Pain in right toe(s) [...] Treatment Pending Test Test Name Order Date [id number] NAIL, 6 OR MORE 08/26/2024 [id number] NAIL, 6 OR MORE 01/06/2025 [id number] NAIL, 6 OR MORE 05/10/2025 [id number] NAIL, 6 OR MORE 08/05/2025 Next Appt Details Provider Name:Margaret perez, 11/17/2025 10:00:00 AM, [address] [place], [address], Insurance Providers Payer Name Payer Address Payer Phone Subscriber Number Group Number Insured Name Patient Relationship to Insured Coverage Start Date Coverage End Date [facility] [address] [place] [address] [id number] Reji Teran Self - patient is the insured Medical (General) History Medical History History ICD Code Anxiety Back,Hip,and Knee pain Broken bones Cancer- slight Lukemia Diabetic Glaucoma Hiatal hernia Measles Mumps Chicken pox Joint implants/screws Surgical History Surgery Date(Month/Year) stricture of uterer 1944 broken leg 1988
[2025-08-13 09:25] LABS: INTERNATIONAL NORM RATIO 1.1 (0.9-1.1); Prothrombin Time 13.6 SEC (11.2-13.5)
[2025-08-13 09:28] LABS: Alanine Aminotransferase 17 U/L (0-40); Albumin Level 4.3 g/dL (3.5-5.0); Alkaline Phosphatase 86 U/L (39-117); Anion Gap 8 (12-20); Aspartate Amino Transferase 19 U/L (5-37); Blood Urea Nitrogen 20 mg/dL (9-16); Calcium 9.2 mg/dL (8.4-10.2); Carbon Dioxide 31 mmol/L (22-29); Chloride 107 mmol/L (96-108); Creatinine Clr Calc Pharmacy 80.5; Estimated Glomerular Filt Rate > 60; Hematocrit 37.9 % (42.0-52.0); Hemoglobin 12.8 g/dl (14.0-18.0); Imm Gran Abs Auto 0.02 X10*3/uL (0.00-0.03); Imm Gran Pct Auto 0.3 % (0.0-0.4); Lymphocytes Absolute Auto 5.0 X10*3/uL (1.2-4.9); MANUAL DIFF FLAG SCAN; Magnesium 2.4 mg/dL (1.6-2.6); Mean Corpuscular HGB Conc 33.8 g/dl (31.0-36.0); Mean Corpuscular Hemoglobin 34.2 pg (27.0-33.0); Mean Corpuscular Volume 101.3 fL (80.0-98.0); NRBC Abs Auto 0.000 X10*3/uL (0.0-0.012); NRBC Pct Auto 0.0 /100WBC (0.0-0.2); Potassium 4.4 mmol/L (3.3-5.1); Red Blood Count 3.74 X10*6/uL (4.60-5.80); SCAN SMEAR FLAG 1; Sodium 142 mmol/L (135-145); Total Protein 6.2 g/dL (6.5-8.0); White Blood Count 7.6 X10*3/uL (4.8-10.8)
[2025-08-13 09:32] LABS: Acetaminophen LAB < 3 mcg/mL (<30); Salicylate < 5.0 mg/dL (15-30)
[2025-08-13 09:38] LABS: Troponin-I High Sensitivity < 2.7 ng/L (<3.5-35.0)
[2025-08-13] MEDS: iohexoL 350 MG/ML 100 ML INFUS..BTL IV (09:59)
[2025-08-13 10:00] VITALS: BP 118/82; PULSE 74; RESP 20; O2SAT 96
[2025-08-13 10:46] LABS: Platelet Count 107 X10*3/uL (160-400)
[2025-08-13 12:00] VITALS: BP 125/68; PULSE 84
[2025-08-13] MEDS: Lidocaine HCl 1 % 20 ML VIAL SUBCUT (12:30)
[2025-08-13 12:53] VITALS: BP 116/78
[2025-08-13 12:54] VITALS: BP 125/68; BP 132/64; PULSE 80; PULSE 84
[2025-08-13] MEDS: Diphth,Pertus(ACell),Tet Adult 0.5 ML SYRINGE IM (13:02)
[2025-08-13 13:06] LABS: Appearance Urine Clear; Glucose Urine UA Negative (Negative); PH 8.0 (5.0-9.0); Specific Gravity - Urine >= 1.030 (1.005-1.025)
[2025-08-13 13:48] VITALS: BP 132/64; PULSE 84; RESP 18; TEMP 36.7; O2SAT 98
== END 2025-08-13 13:49 | disposition home or self-care (01) ==
PROVIDERS: Physician Assistant; Emergency Provider Emergency Medicine; PCP Nurse Practitioner Family
DX: S06.0XAA Concussion with loss of consciousness status unknown, initial encounter (principal); S01.01XA Laceration without foreign body of scalp, initial encounter; R51.9 Headache, unspecified; R10.20 Pelvic and perineal pain unspecified side; R94.31 Abnormal electrocardiogram [ECG] [EKG]; W06.XXXA Fall from bed, initial encounter; Y93.9 Activity, unspecified; Y92.9 Unspecified place or not applicable; Y99.8 Other external cause status; Z91.81 History of falling; Z23 Encounter for immunization; Z79.899 Other long term (current) drug therapy; Z51.81 Encounter for therapeutic drug level monitoring
CPT/HCPCS: 12002; 36415; 70450; 70486; 71260; 72125; 74177; 80053; 80143; 80179; 80307; 81003; 82550; 83735; 84484; 85025; 85610; 90471; 90715; 93005; 99285; J2003; Q9967

== ENCOUNTER → 2025-08-13 08:26 | Outpatient (BNV) | payer MEDICARE, SELFPAY | PROVIDERS: Emergency Provider Emergency Medicine; PCP Nurse Practitioner Family; Visit Provider Radiology Diagnostic Radiology | DX: N28.1 Cyst of kidney, acquired (principal); K86.2 Cyst of pancreas; N20.0 Calculus of kidney; M47.812 Spondylosis without myelopathy or radiculopathy, cervical region; S01.01XA Laceration without foreign body of scalp, initial encounter; R90.82 White matter disease, unspecified; S01.81XA Laceration without foreign body of other part of head, initial encounter; Z04.3 Encounter for examination and observation following other accident | CPT/HCPCS: 70450; 70486; 71260; 72125; 74177 ==

== ENCOUNTER → 2025-08-13 08:28 | Outpatient (BNV) | payer MEDICARE, SELFPAY | PROVIDERS: Emergency Provider Emergency Medicine; PCP Nurse Practitioner Family; Visit Provider Internal Medicine | DX: R94.31 Abnormal electrocardiogram [ECG] [EKG] (principal); Z04.3 Encounter for examination and observation following other accident | CPT/HCPCS: 93010 ==

== ENCOUNTER 2025-08-18 09:13 | Outpatient (AMB) | payer MEDICARE, SELFPAY ==
--- NOTE | 2025-08-18 09:15 | MHC.OFFWIV ---
Intake Vital Signs 08/18/25 09:19 Height 5 ft 9 in Weight 156 lb BMI 23.0 BP 102/70 Blood Pressure Location Lt brachial Position Sitting Pulse 77 Pulse Source Pulse Oximeter Temp 98.0 F Temp Source Oral Pulse Oximetry (%) 97 Oxygen Delivery Method Room Air Intake Visit Reasons: EP Stiches removal Patient Tobacco Use Status: Never used Tobacco Allergies No Known Allergies (No Known Allergies*) Allergy (Verified 08/18/25 09:26) Do you need a note to return to daycare/school/sports/work: No HPI HPI Comments History of Present Illness Details Patient is an 84yo M who presents for stitches removal Presents with brother who he lives with Had mechanical fall in bedroom 1 week ago and seen at [facility] 4 sutures placed in headaches wounds He said he is feeling okay and has no complaints Brother states he is acting appropriate [facility] Medical History Encounter for routine adult health examination without abnormal findings Glaucoma Hypotonic bladder Osteoporosis Hyperglycemia Nocturia BPH (benign prostatic hyperplasia) Urgency of urination Diabetes mellitus Right inguinal hernia Bladder neck contracture Surgical History H/O urethrotomy Family History Father CVD (cardiovascular disease) Mother No problems noted. Other HTN (hypertension) Social History Household Members: Family Housing: House Are you a primary district manager primary care sales to a significant other at home: No Do you presently have visiting nurse or other home services: No Patient Tobacco Use Status: Never used Tobacco e-Cigarette/Vaping Use: Never Used Second Hand Smoke Exposure: No service: No Current occupational status: retired Cognitive needs: No Hearing needs: No Vision needs: No Review of Systems Const Denies chills and Denies fever(s) Card Denies syncope Skin/Breast Reports wounds (healing facial wound with [address]) Neuro Denies confusion and Denies syncope Psych Denies confusion Physical Exam Exam Exam: General: Non-toxic, NAD. Speaking full sentences. Skin: Warm dry throughout. Pt has purple discoloration below R eye and minimal to L infraorbital region + yellow discoloration along forehead, nasal bride and bilateral infra-orbital regions. + healing linear lacerations to forehead with larged above R eyebrow that has [address] + scabbing in place. Eye: EOMI, pERRLA Respiratory: No respiratory distress Neurology: Alert. No aphasia or facial droop. Gait without abnormality with cane use Psych: Good mood and affect Vital Signs: Last Vital Signs Temp 98.0 F 08/18/25 09:19 Pulse 77 08/18/25 09:19 BP 102/70 08/18/25 09:19 Pulse Ox 97 08/18/25 09:19 Oxygen Delivery Method Room Air 08/18/25 09:19 BMI result Body Mass Index 23.0 Const General: No confusion Orientation/consciousness: No confusion Neuro General: No confusion Assessment & Plan Assessment & Plan (1) Visit for suture removal: Code(s): Z48.02 - Encounter for removal of sutures Plan: Patient seen and evaluated. Verbal consent obtained. Tweezers and scissors used to remove 4 sutures from head lac. Pt tolerated well without complication. No wound dehiscence. Given brother and pt instructions for proper healing with gentle scrubbing and water rinses. Will monitor symptoms and be seen with any concern Patient gave verbal understanding and had no additional questions or concerns at time of discharge All questions answered Coding Level of Care Code Est Pt Level 3 (44277) Diagnoses Visit for suture removal Z48.02
[2025-08-18 09:19] VITALS: BP 102/70; PULSE 77; TEMP 36.7; O2SAT 97; BMI 23.0
--- OUTSIDE RECORDS SUMMARY | 2025-08-18 10:06 | XMS_ITS | Patient Health Record ---
Author Organization [facility] isai Hulen Address [address] [place] [address] Care Team Providers Care Millstone Cleaner Name Role Phone Modesto Kay Primary Care Provider Unav ailable Margaret Nielsen Unavailable [phone] Allergies No Known Allergies Results Component Value [...] Modesto Referring Provider Last Name Jaiden [facility] Referred Provider Margaret Nielsen Referred Address [address],[place],[address], Referred Provider Specialty Podiatry Referral Priority Routine [...] Ordered Date Performed Result Body Sit e 34300-[id number] NAIL, 6 OR MORE 08/26/2024 N/A [id number] NAIL, 6 OR MORE 01/06/2025 N/A [id number] NAIL, 6 OR MORE 05/10/2025 N/A [id number] NAIL, 6 OR MORE 08/05/2025 N/A Encounters Encounter Location Date Provider Diagnosis [facility] [address] [address] 08/26/2024 Margaret Nielsen Pain in right toe(s) M79.674 ; Onychomycosis B35.1 and Pain in left toe(s) M79.675 [facility] [address] [address] 01/06/2025 Margaret Nielsen Pain in right toe(s) M79.674 ; Onychomycosis B35.1 and Pain in left toe(s) M79.[address] [address] 05/10/2025 Margaret Nielsen Pain in right toe(s) M79.674 ; Onychomycosis B35.1 and Pain in left toe(s) M79.[address] [address] 08/05/2025 Margaret Nielsen Pain in right toe(s) [...] Treatment Pending Test Test Name Order Date [id number] NAIL, 6 OR MORE 08/26/2024 [id number] NAIL, 6 OR MORE 01/06/2025 [id number] NAIL, 6 OR MORE 05/10/2025 [id number] NAIL, 6 OR MORE 08/05/2025 Next Appt Details Provider Name:Margaret perez, 11/17/2025 10:00:00 AM, [address] [place], [address], Insurance Providers Payer Name Payer Address Payer Phone Subscriber Number Group Number Insured Name Patient Relationship to Insured Coverage Start Date Coverage End Date [facility] [address] [place] [address] [id number] Reji Teran Self - patient is the insured Medical (General) History Medical History History ICD Code Anxiety Back,Hip,and Knee pain Broken bones Cancer- slight Lukemia Diabetic Glaucoma Hiatal hernia Measles Mumps Chicken pox Joint implants/screws Surgical History Surgery Date(Month/Year) stricture of uterer 1944 broken leg 1988
--- OUTSIDE RECORDS SUMMARY | 2025-08-18 10:06 | XMS_ITS | Patient Health Record ---
Author Organization [facility] Address [address] [place] [address] Care Team Providers Care Hotel Manager Name Role Phone Korey Mena M.D. Primary Care Provider Anna magdajens Ramin Garcia Unavailable [phone] Reason For Referral No Information Medications Medication [...] Problem Screening for malignant neoplasm of colon (015649683) Encounter for screening for malignant neoplasm of colon (Z12.11) Active confirmed Problem Screening for malignant neoplasm of rectum (397434142) Encounter for screening for malignant neoplasm of rectum (Z12.12) Active confirmed Problem Constipation (35238447) Constipation, unspecified constipation type (K59.00) Active confirmed Problem History of adenomatous polyp of colon (345843817) Hx of adenomatous colonic polyps (Z86.010) Active confirmed Plan Of Treatment Future Test Test Name Order Date COLONOSCOPY 10/20/2015 Insurance Providers Payer Name Payer Address Payer Phone Subscriber Number Group Number Insured Name Patient Relationship to Insured Coverage Start Date Coverage End Date [facility] [place] [place] [address] [place] [address] [phone] [id number]ES Self - patient is the insured Medical (General) History Medical History History ICD Code screening colonoscopy 06-13-2007--1 small tubular adenoma removed Denies AR,DM,CVA,Lung disease,renal dise ase osteoporosis Kyphosis Anxiety/tremor Urinary retention Surgical History Surgery Date(Month/Year) Surgery for a broken leg. Surgery for a ureteral stric ture at age 4 ( He had neurologic probelms after the general anesthesia) Laser prostate surgry--transurethral
== END 2025-08-18 10:06 | disposition home or self-care (01) ==
PROVIDERS: PCP Nurse Practitioner Family; Visit Provider Physician Assistant
DX: Z48.02 Encounter for removal of sutures (principal)

== ENCOUNTER → 2025-08-18 09:13 | Outpatient (BNVA) | payer MEDICARE, SELFPAY | PROVIDERS: PCP Nurse Practitioner Family; Visit Provider Physician Assistant | DX: Z48.02 Encounter for removal of sutures (principal); S01.81XD Laceration without foreign body of other part of head, subsequent encounter | CPT/HCPCS: 99212 ==

== ENCOUNTER 2025-08-27 09:17 | Outpatient (REF) | payer MEDICARE, SELFPAY ==
--- OUTSIDE RECORDS SUMMARY | 2025-08-27 10:02 | XMS_ITS | Patient Health Record ---
Author Organization [facility] Address [address] [place] [address] Care Team Providers Care Cord Maker Name Role Phone Korey Mena M.D. Primary Care Provider Anna magdajens Ramin Garcia Unavailable [phone] Reason For Referral No Information Medications Medication [...] Problem Screening for malignant neoplasm of colon (936233712) Encounter for screening for malignant neoplasm of colon (Z12.11) Active confirmed Problem Screening for malignant neoplasm of rectum (940926096) Encounter for screening for malignant neoplasm of rectum (Z12.12) Active confirmed Problem Constipation (45153478) Constipation, unspecified constipation type (K59.00) Active confirmed Problem History of adenomatous polyp of colon (792127764) Hx of adenomatous colonic polyps (Z86.010) Active confirmed Plan Of Treatment Future Test Test Name Order Date COLONOSCOPY 10/20/2015 Insurance Providers Payer Name Payer Address Payer Phone Subscriber Number Group Number Insured Name Patient Relationship to Insured Coverage Start Date [place]age End Date [facility] [place] [address] [place] [address] [id number] 200 [address] FUNES Self - patient is the insured Medical (General) History Medical History History ICD Code screening colonoscopy 06-13-2007--1 small tubular adenoma removed Denies [place],DM,CVA,Lung disease,renal dise ase osteoporosis Kyphosis Anxiety/tremor Urinary retention Surgical History Surgery Date(Month/Year) Surgery for a broken leg. Surgery for a ureteral stric ture at age 4 ( He had neurologic probelms after the general anesthesia) Laser prostate surgry--transurethral
[2025-08-27 10:43] LABS: Hematocrit 37.3 % (42.0-52.0); Hemoglobin 12.2 g/dl (14.0-18.0); Imm Gran Abs Auto 0.02 X10*3/uL (0.00-0.03); Imm Gran Pct Auto 0.3 % (0.0-0.4); Lymphocytes Absolute Auto 4.0 X10*3/uL (1.2-4.9); MANUAL DIFF FLAG SCAN; Mean Corpuscular HGB Conc 32.7 g/dl (31.0-36.0); Mean Corpuscular Hemoglobin 33.9 pg (27.0-33.0); Mean Corpuscular Volume 103.6 fL (80.0-98.0); NRBC Abs Auto 0.000 X10*3/uL (0.0-0.012); NRBC Pct Auto 0.0 /100WBC (0.0-0.2); PLT CLUMP 1; Red Blood Count 3.60 X10*6/uL (4.60-5.80); SCAN SMEAR FLAG 1
[2025-08-27 11:06] LABS: White Blood Count 7.0 X10*3/uL (4.8-10.8)
== END 2025-08-27 09:18 | disposition home or self-care (01) ==
LOC: HO.HMGCLDS 09:17
PROVIDERS: PCP Nurse Practitioner Family; Visit Provider Nurse Practitioner Family
DX: D69.6 Thrombocytopenia, unspecified (principal)
CPT/HCPCS: 36415; 85025

== ENCOUNTER 2025-09-09 09:02 | Outpatient (REF) | payer MEDICARE, SELFPAY ==
--- OUTSIDE RECORDS SUMMARY | 2025-09-09 10:10 | XMS_ITS | Patient Health Record ---
[facility] Address [address] [place] [address] Care Team Providers Care Screen Making Supervisor Name Role Phone Modesto Kay Primary Care Provider Unav ailable Margaret Nielsen Unavailable [phone] Allergies No Known Allergies Results Component Value Reference Range Notes HEMOGLOBIN A1C (GLYCOHEMOGLO BIN) Reviewed date:05/10/2025 09:22:54 AM Interpretation: Performing Lab: Notes/Report: HEMOGLOBIN A1C % (HH) 5.6 Reason For Referral No Information Medications Medication [...] Ordered Date Performed Result Body Sit e [id number] NAIL, 6 OR MORE 01/06/2025 N/A [id number] NAIL, 6 OR MORE 05/10/2025 N/A [id number] NAIL, 6 OR MORE 08/05/2025 N/A Encounters Encounter Location Date Provider Diagnosis [facility] [address] 01/06/2025 Margaret Nielsen Pain in right toe(s) M79.674 ; Onychomycosis B35.1 and Pain in left toe(s) M79.[address] [address] 05/10/2025 Margaret Nielsen Pain in right toe(s) M79.674 ; Onychomycosis B35.1 and Pain in left toe(s) M79.[address] [address] 08/05/2025 Margaret Nielsen Pain in right toe(s) [...] - B35.1) 01/06/2025 Onychomycosis (ICD-10 - B35.1) 01/06/2025 Pain in left toe(s) (ICD-10 - M79.675) 05/10/2025 Pain in left toe(s) (ICD-10 - M79.675) 08/05/2025 Pain in left toe(s) (ICD-10 - M79.675) Plan Of Treatment Pending Test Test Name Order Date [id number] NAIL, 6 OR MORE 08/26/2024 [id number] NAIL, 6 OR MORE 01/06/2025 [id number] NAIL, 6 OR MORE 05/10/2025 [id number] NAIL, 6 OR MORE 08/05/2025 Next Appt Details Provider Name:Margaret Riddle ana, 11/17/2025 10:00:00 AM, [address], [place], [address], Insurance Providers Payer Name Payer Address Payer Phone Subscriber Number Group Number Insured Name Patient Relationship to Insured Coverage Start Date Coverage End Date [facility] [id number] [place] [address] [phone] [id number] Reji Teran Self - patient is the insured Medical (General) History Medical History History ICD Code Anxiety Back,Hip,and Knee pain Broken bones Cancer- slight Lukemia Diabetic Glaucoma Hiatal hernia Measles Mumps Chicken pox Joint implants/screws Surgical History Surgery Date(Month/Year) stricture of uterer 1944 broken leg 1988
--- OUTSIDE RECORDS SUMMARY | 2025-09-09 10:10 | XMS_ITS | Patient Health Record ---
Author Organization [facility] Address [address] [place] [address] Care Team Providers Care Children'S Book Author Name Role Phone Korey Mena M.D. Primary Care Provider Anna magdajens Ramin Garcia Unavailable [phone] Reason For Referral No Information Medications Medication [...] Problem Screening for malignant neoplasm of colon (883423210) Encounter for screening for malignant neoplasm of colon (Z12.11) Active confirmed Problem Screening for malignant neoplasm of rectum (325467987) Encounter for screening for malignant neoplasm of rectum (Z12.12) Active confirmed Problem Constipation (47625490) Constipation, unspecified constipation type (K59.00) Active confirmed Problem History of adenomatous polyp of colon (061160926) Hx of adenomatous colonic polyps (Z86.010) Active confirmed Plan Of Treatment Future Test Test Name Order Date COLONOSCOPY 10/20/2015 Insurance Providers Payer Name Payer Address Payer Phone Subscriber Number Group Number Insured Name Patient Relationship to Insured Coverage Start Date Coverage End Date [facility] [place] [employer] PROF[employer]AL CLAIMS [address] [place] [address] [phone] [id number] 200 AR[address]A FUNES Self - patient is the insured Medical (General) History Medical History History ICD Code screening colonoscopy 06-13-2007--1 small tubular adenoma removed Denies [place],DM,CVA,Lung disease,renal dise ase osteoporosis Kyphosis Anxiety/tremor Urinary retention Surgical History Surgery Date(Month/Year) Surgery for a broken leg. Surgery for a ureteral stric ture at age 4 ( He had neurologic probelms after the general anesthesia) Laser prostate surgry--transurethral
[2025-09-09 10:39] LABS: Hematocrit 39.7 % (42.0-52.0); Hemoglobin 12.8 g/dl (14.0-18.0); Imm Gran Abs Auto 0.02 X10*3/uL (0.00-0.03); Imm Gran Pct Auto 0.3 % (0.0-0.4); Lymphocytes Absolute Auto 5.0 X10*3/uL (1.2-4.9); MANUAL DIFF FLAG SCAN; Mean Corpuscular HGB Conc 32.2 g/dl (31.0-36.0); Mean Corpuscular Hemoglobin 33.7 pg (27.0-33.0); Mean Corpuscular Volume 104.5 fL (80.0-98.0); NRBC Abs Auto 0.000 X10*3/uL (0.0-0.012); NRBC Pct Auto 0.0 /100WBC (0.0-0.2); Red Blood Count 3.80 X10*6/uL (4.60-5.80); SCAN SMEAR FLAG 1; White Blood Count 7.6 X10*3/uL (4.8-10.8)
[2025-09-09 11:08] LABS: Alanine Aminotransferase 16 U/L (0-40); Albumin Level 4.3 g/dL (3.5-5.0); Alkaline Phosphatase 88 U/L (39-117); Anion Gap 9 (12-20); Aspartate Amino Transferase 18 U/L (5-37); Blood Urea Nitrogen 19 mg/dL (9-16); Calcium 9.1 mg/dL (8.4-10.2); Carbon Dioxide 31 mmol/L (22-29); Chloride 102 mmol/L (96-108); Estimated Glomerular Filt Rate > 60; Potassium 4.0 mmol/L (3.3-5.1); Sodium 138 mmol/L (135-145); Total Protein 6.3 g/dL (6.5-8.0)
== END 2025-09-09 09:03 | disposition home or self-care (01) ==
LOC: HO.HMGCLDS 09:02
PROVIDERS: PCP Nurse Practitioner Family; Visit Provider Nurse Practitioner Family
DX: D69.6 Thrombocytopenia, unspecified (principal)
CPT/HCPCS: 36415; 80053; 85025